=== PATIENT | male | born 1940 | race Caucasian/White ===

== ENCOUNTER 2020-01-10 14:46 | Outpatient (RCR) | payer MEDICARE, BC, SELFPAY ==
--- NOTE | 2020-03-10 09:42 | PCPTNOTE ---
PHYSICAL THERAPY DISCHARGE NOTE: 03/10/20 Attending Provider: Derrell Cheema, DO Patient:Brando Myrick Date of :1940 Patient has not returned for any further treatments since 01/10/2020, therefore he will be discharged at this time. Patient?s initial visit was on 01/10/2020 14:30 and he had a total of 1 visits. The goals have not been reassessed due to patient not returning after one visit. Thank you for referring this patient to [facility]. Please review, sign, date and return this discharge summary HERMAN. I have been updated about the patient's current status and I agree with discharge from the above service at this time. Referring Physician Date
== END 2020-03-14 10:49 | disposition home or self-care (01) ==
LOC: ANHPT 14:46
PROVIDERS: PCP Internal Medicine; Visit Provider Internal Medicine Nephrology
DX: G83.11 Monoplegia of lower limb affecting right dominant side (principal); G83.14 Monoplegia of lower limb affecting left nondominant side
CPT/HCPCS: 97161

== ENCOUNTER 2020-04-18 10:29 | Outpatient (CLI) | payer MEDICARE, BC, SELFPAY ==
[2020-04-18 11:35] LABS: Albumin Level 3.8 g/dL (3.5-5.1); Anion Gap 4 mmol/L (8-16); Blood Urea Nitrogen 17 mg/dL (9-20); Carbon Dioxide 32 mmol/L (22-30); Chloride 102 mmol/L (98-107); Estimated Glomerular Filt Rate 27; Glucose 141 mg/dL (75-110); Phosphorus 3.8 mg/dL (2.5-4.5); Potassium 4.7 mmol/L (3.4-5.0); Sodium 138 mmol/L (137-145)
== END 2020-04-18 10:30 | disposition home or self-care (01) ==
LOC: ANHLAB 10:34
PROVIDERS: PCP Internal Medicine; Visit Provider Internal Medicine Nephrology
DX: E11.311 Type 2 diabetes mellitus with unspecified diabetic retinopathy with macular edema (principal); I12.9 Hypertensive chronic kidney disease with stage 1 through stage 4 chronic kidney disease, or unspecified chronic kidney disease; E11.22 Type 2 diabetes mellitus with diabetic chronic kidney disease; E11.65 Type 2 diabetes mellitus with hyperglycemia; E55.9 Vitamin D deficiency, unspecified; I25.10 Atherosclerotic heart disease of native coronary artery without angina pectoris; E87.5 Hyperkalemia; N18.4 Chronic kidney disease, stage 4 (severe); N39.41 Urge incontinence
CPT/HCPCS: 36415; 80069; 83735

== ENCOUNTER 2020-07-23 12:28 | Outpatient (CLI) | payer MEDICARE, BC, SELFPAY ==
[2020-07-23 12:47] LABS: Basophils Percent Auto 0.2 % (0.2-1.2); Eosinophils Absolute Auto 0.1 K/mm3 (0-0.3); Eosinophils Percent Auto 1.2 % (0-4.4); Hematocrit 39.1 % (42.0-52.0); Hemoglobin 12.9 g/dL (14.0-18.0); Immature Granulocyte Absolute 0.05 K/mm3 (0.00-0.031); Immature Granulocyte Percent A 0.5 % (0-0.5); Lymphocytes Percent Auto 14.7 % (18.3-44.2); Mean Corpuscular Hemoglobin 30.9 pg (26-34); Mean Corpuscular Volume 93.8 fl (80-100); Mean Platelet Volume 11.1 fl (7.4-10.4); Monocytes Absolute Auto 1.3 K/mm3 (0.1-0.6); Monocytes Percent Auto 12.9 % (2.6-8.5); Neutrophils Absolute Auto 7.2 K/mm3 (1.3-6.7); Neutrophils Percent Auto 70.5 % (45.5-73.1); Platelet Count Result 307 k/mm3 (150-375); Red Blood Count 4.17 M/mm3 (4.6-6.20); Red Cell Distribution Width 12.6 % (11.5-14.5); Reticulocyte Hemoglobin Conten 37.5 pg (28.2-35.7); Reticulocyte Percent 1.29 % (0.7-4.3); Reticulocytes Absolute 0.05 B/L (32.2-175.7); White Blood Count 10.2 K/mm3 (4.5-10.0)
[2020-07-23 18:22] LABS: Iron 132 ug/dL (49-181)
[2020-07-23 18:31] LABS: Alanine Aminotransferase 14 U/L (4-50); Albumin Level 4.3 g/dL (3.5-5.1); Alkaline Phosphatase 88 U/L (38-126); Anion Gap 7 mmol/L (8-16); Aspartate Amino Transferase 26 U/L (17-59); Bilirubin,Total 0.7 mg/dL (0.2-1.3); Blood Urea Nitrogen 18 mg/dL (9-20); Calcium 9.6 mg/dL (8.4-10.2); Carbon Dioxide 29 mmol/L (22-30); Chloride 103 mmol/L (98-107); Estimated Glomerular Filt Rate 26; Glucose 153 mg/dL (75-110); Lactate Dehydrogenase 484 U/L (313-618); Potassium 4.7 mmol/L (3.4-5.0); Sodium 139 mmol/L (137-145)
[2020-07-23 18:36] LABS: Percent Iron Saturation 31 % (20-50)
[2020-07-23 19:31] LABS: Folic Acid 9.3 ng/mL (2.76->20)
[2020-07-25 20:05] LABS: Erythropoietin (EPO) 8.1 mIU/mL (2.6-18.5)
== END 2020-07-23 12:29 | disposition home or self-care (01) ==
LOC: ANHLAB 12:30
PROVIDERS: PCP Internal Medicine; Visit Provider Internal Medicine Hematology & Oncology
DX: D64.9 Anemia, unspecified (principal)
CPT/HCPCS: 36415; 80053; 82607; 82668; 82728; 82746; 83540; 83550; 83615; 85025; 85046

== ENCOUNTER 2020-08-02 02:31 | Inpatient (IN) | payer MEDICARE, BC, SELFPAY ==
[2020-08-02] VITALS (14 sets, daily range): BP systolic 136–190; BP diastolic 59–93; PULSE 70–84; RESP 15–24; TEMP 35.7–36.6; O2SAT 97–100; BMI 22.4
--- NOTE | 2020-08-02 | ECHO_ITS ---
Patient Info Name: Brando Myrick Age: 80 years : 1940 Gender: Male Ht: 66 in Wt: 138 lbs BSA: 1.71 m2 HR: 79 bpm Heart Rhythm: Sinus Rhythm Technical Quality: Fair Exam Date: 08/02/2020 2:03 PM Exam Location: [facility] Patient Status: Inpatient Admit Date: 08/02/2020 Staff Ordering Physician: Lakhwinder Plunkett MD Metal Furniture Panel Coverer: Jeny Thomas RDCS Attending Provider: Lakhwinder Plunkett MD Exam Type: CA echo doppler color flow Study Info Complete two-dimensional, color flow and Doppler transthoracic echocardiogram is performed with contrast to opacify the left ventricle and to improve the deliniation of the left ventricle endocardial borders. Contrast/Agitated Saline Contrast/Ag. Saline: Definity Amount: 4.00 ml Summary 1. Left ventricular chamber dimension is normal. 2. Left ventricular systolic function is normal, estimated at 45-50%. 3. There is mild concentric increased left ventricular wall thickness. 4. Definity contrast injected to improve visualization. 5. Septal motion compatible with bundle branch block/IVCD. 6. No significant valvular abnormality. 7. No likely cardioembolic source was identified. Left Ventricle Left ventricular chamber dimension is normal. Left ventricular systolic function is normal, estimated at 45-50%. There is mild concentric increased left ventricular wall thickness. The left ventricular diastolic function is grade I diastolic dysfunction. Definity contrast injected to improve visualization. Septal motion compatible with bundle branch block/IVCD. Right Ventricle Right ventricular chamber dimension is normal. Left Atria Left atrial chamber dimension is normal. Right Atria Right atrial chamber dimension is normal. Aortic Valve The aortic valve is trileaflet. There is mild aortic valve sclerosis. Pulmonic Valve The pulmonic valve is not well visualized. Mitral Valve The mitral valve has normal leaflets. The mitral valve annulus is mildly calcified. Tricuspid Valve The tricuspid valve leaflets are normal. Pericardium/Pleural The pericardium appears normal. Aorta The aortic root size at the sinus of Valsalva is normal. Left Ventricular Outflow Tract Name Value Normal LVOT 2D LVOT Diameter 2.1 cm LVOT Doppler LVOT Peak Velocity 86 cm/s LVOT Peak Gradient 3 mmHg LVOT Mean Gradient 1 mmHg LVOT VTI 15 cm LVOT VTI/AV VTI Ratio 0.9 LVOT Stroke Volume 53 ml LVOT CO 4.0 l/min LVOT CI 2.3 l/min/m2 Pulmonic Valve Name Value Normal PV Doppler PV Peak Velocity 101 cm/s PV Peak Gradient
--- NOTE | ~2020-08-02 | CT_ITS ---
EXAMINATION: CT brain wo con EXAM DATE: 08/02/2020 02:39 INDICATION: Left-sided hemiparesis. Possible stroke. TECHNIQUE: Spiral CT of the head was performed without contrast. Axial, coronal and sagittal images were reviewed. The dose-length product (DLP) for this examination was 605.33 mGy-cm. The exposure w as tailored according to patient size, and iterative reconstruction (ASIR) was used as additional dos e reduction technique. There is no prior study for comparison. FINDINGS: There is no acute intraparenchymal hemorrhage. No evidence of intraparenchymal brain mass lesion. No evidence of acute infarction. Please note that initial head CT has limited sensitivity f or small or acute infarctions. Small old left periventricular infarction. Punctate old left internal capsular lacunar infarction. There is punctate old left cerebellar infarction. There is mild to mode rate periventricular and subcortical hypodensity, nonspecific but probably related to small vessel is chemic disease. There is mild to moderate prominence of the sulci and ventricles related to cerebra l atrophy. There is intracranial carotid arteriosclerosis. There are no extra-axial collections. There is no mass effect or midline shift. The orbits are unremarkable. Soft tissue is unremarkable. The visualized sinuses and mastoid air cells are well aerated. IMPRESSION: 1. No acute intracranial findings. 2. Chronic age related findings. 3. Small old infarctions. Reviewed, dictated and finalized at location A. ER AND CASHIER
--- NOTE | ~2020-08-02 | US_ITS ---
EXAMINATION: US carotid duplex BI EXAM DATE: 08/02/2020 13:01 INDICATION: Stroke. TECHNIQUE: Grayscale, color and pulsed Doppler images of the cervical carotid arteries were obtained . The degree of vessel stenosis is placed in one of the following categories: normal, <50% stenosis, 50-69% stenosis, >=70% stenosis but less than near-occlusion, near-occlusion, or occlusion. Note that percent stenosis relative to normal distal artery lumen diameter is indirectly measured from velocit y measurements as described by Marco Antonio, et al. Radiology 2003; 229:340-346. There is no prior study fo r comparison. FINDINGS: RIGHT SIDE: Right common carotid artery peak systolic velocity (PSV in cm/s): 85 Right bulb/internal carotid artery peak systolic velocity (PSV in cm/s): 78 Right internal carotid artery end diastolic velocity (EDV in cm/s): 15 Right ICA/CCA peak systolic ratio: 0.9 Right external carotid artery peak systolic velocity (PSV in cm/s): 85 Right vertebral artery antegrade flow: yes There is mild carotid bulb plaque. Velocity and Doppler waveforms in the common and internal carotid arteries is normal. LEFT SIDE: Left common carotid artery peak systolic velocity (PSV in cm/s): 67 Left bulb/internal carotid artery peak systolic velocity (PSV in cm/s): 78 Left internal carotid artery end diastolic velocity (EDV in cm/s): 16 Left ICA/CCA peak systolic ratio: 1.5 Left external carotid artery peak systolic velocity (PSV in cm/s): 109 Left vertebral artery antegrade flow: yes There is mild carotid bulb plaque. Velocity and Doppler waveforms in the common and internal carotid arteries is normal. IMPRESSION: 1. Less than 50 percent stenosis in the right internal carotid artery. 2. Less than 50 percent stenosis in the left internal carotid artery. Reviewed, dictated and finalized at location A. BOARD ERECTOR HELPER
--- NOTE | ~2020-08-02 | MR_ITS ---
EXAMINATION: MR brain/brain stem wo con EXAM DATE: 08/02/2020 12:45 INDICATION: Acute ischemic stroke. TECHNIQUE: Magnetic resonance imaging (MRI) of the brain/brain stem obtained without contrast. Sagitt al T1, axial diffusion, gradient echo (T2*), T1, T2, FLAIR sequences obtained. There is no prior st udy for comparison. FINDINGS: There is punctate acute right parietal lobe cortical infarction. Old right periventricular, left internal capsular, left cerebellar infarctions. There is moderate microangiopathy and mild to m oderate cerebral atrophy. No obstructive hydrocephalus, extra-axial collections, acute intracranial h emorrhage or brain mass. Bilateral cataract surgery. IMPRESSION: 1. Punctate acute right parietal lobe infarction. 2. Small old left-sided infarctions. 3. Chronic age related findings. Reviewed, dictated and finalized at location A. LITION SPECIALIST
--- NOTE | ~2020-08-02 | XR_ITS ---
EXAMINATION: XR chest 1V portable EXAM DATE: 08/02/2020 02:58 INDICATION: Stroke. TECHNIQUE: Portable AP frontal chest x-ray was obtained. There is no prior study for comparison. FINDINGS: Prominent basilar reticulation, possible edema or reticulonodular infectious process. The c ardiomediastinal silhouette is prominent but magnified on this AP technique. No confluent consolidati on, pneumothorax or pleural effusion suspected. There are no osseous abnormalities identified. IMPRESSION: Indistinct basilar reticulation without confluent consolidation. Possible mild edema or i nfection. Reviewed, dictated and finalized at location A. CTIONAL SURVEY DRAFTER IMPRESSION: Indistinct basilar reticulation without confluent consolidation. Po ssible mild edema or infection.
--- NOTE | 2020-08-02 02:44 | ECG_ITS ---
Measurements Intervals [place] Rate: 80 P: 44 VA: 186 QRS: 78 QRSD: 120 T: 43 QT: 397 QTc: 461 Interpretive Statements SINUS RHYTHM INTRAVENTRICULAR CONDUCTION DELAY INFERIOR INFARCT, AGE INDETERMINATE BASELINE WANDER- I, III ABNORMAL ECG Electronically Signed On 08-02-2020 6:59:03 DRIVABILITY TECHNICIAN by Efrain Mann D.O.
--- NOTE | 2020-08-02 02:47 | ED.WEAKNESS ---
HPI - Weakness General Chief complaint: Weakness Stated complaint: L sided weakness Time Seen by Provider: 08/02/20 02:34 History of Present Illness HPI Narrative: Patient is an 80-year-old male who presents ER with strokelike symptoms. He has left facial droop as well as left-sided weakness. Patient reports he woke up from sleep and noticed his left side was numb and felt off. He walked into the bathroom when he fell onto his left side striking the sink. Did not lose consciousness. woke up and called EMS after he yelled for her. Patient reports previous history of TIA and he supposed to be on some sort of blood thinning medication that he does not know the name of but has not been taking it. Last known normal was at 10:30 PM. Related Data Allergies Allergy/AdvReac Type Severity Reaction Status Date / Time MEPERIDINE HCL Allergy Mild HALLUCINATI Uncoded 04/15/10 14:20 ONS Review of Systems Review of Systems: All systems reviewed & are unremarkable except as noted in HPI and below Constitutional: Constitutional: Denies chills and Denies fever(s) Cardiovascular: Cardiovascular: Denies chest pain and Denies rapid heart rate Respiratory: Respiratory: Denies cough and Denies dyspnea Gastrointestinal: Gastrointestinal: Denies abdominal pain, Denies nausea and Denies vomiting Neurologic: Denies headache(s), Reports focal weakness and Reports numbness PMFSH Past Medical History Medical History (Updated 08/02/20 @ 04:33 by Sloan Trejo MD) Chronic kidney disease Diabetes Glaucoma Hyperlipidemia Myocardial infarction TIA (transient ischemic attack) Surgical History Surgical History (Updated 08/02/20 @ 02:55 by Sloan Trejo MD) History of colonoscopy History of percutaneous coronary intervention S/P lens implant Exam Narrative: Exam Narrative: GENERAL: Well-appearing, well-nourished, and in no acute distress. HEAD: Normocephalic, atraumatic. EYES: PERRLA and EOMI. ENT: Mucous membranes moist. CHEST: Clear to auscultation. No respiratory distress. HEART: Regular rate and rhythm. Normal peripheral pulses. ABDOMEN: Soft, nontender, nondistended. EXTREMITIES: Normal range of motion. No edema. SKIN: Warm, dry, abrasions left forearm. NEURO: See NIH stroke scale. Stroke scale of 7. Main deficits are left facial droop, left arm and left leg drift, and inability to perform finger-nose testing in the left upper extremity. Mild slurred speech. Decreased pin prick LUE. Alert and oriented x3. Course Reevaluation(s) Reevaluation #1: Discussed with Dr. Ernst with [facility] stroke team. Does not recommend TPA as patient is now outside the treatment window. Feels patient can stay at this hospital. Date: 08/02/20 Time: 03:05 Reevaluation #2: Discussed results and treatment plan with patient's and son. will come back to see patient. Date: 08/02/20 Time: 03:30 Reevaluation #3: Patient is now able to move his arms without issue and has feeling back. Still has minor left-sided facial droop. Accepted to hospitalist service. Date: 08/02/20 Time: 04:32 Vital Signs Vital signs: Vital Signs Temperature 97.8 F 08/02/20 02:30 Pulse Rate 84 08/02/20 02:30 Respiratory Rate 24 H 08/02/20 02:30 Blood Pressure 190/77 H 08/02/20 02:30 Pulse Oximetry 97 08/02/20 02:30 Temperature 97.8 F 08/02/20 02:30 Pulse Rate 78 08/02/20 04:13 Respiratory Rate 16 08/02/20 04:13 Blood Pressure 172/89 H 08/02/20 04:13 Pulse Oximetry 100 08/02/20 04:13 MDM - Weakness Lab Data Result diagrams: 08/02/20 02:50 08/02/20 02:50 Labs: Lab Results 08/02/20 08/02/20 08/02/20 Range/Units 02:50 02:50 02:50 WBC 9.3 (4.5-10.0) K/mm3 RBC 3.96 L (4.6-6.20) M/mm3 Hgb 12.4 L (14.0-18.0) g/dL Hct 37.1 L (42.0-52.0) % MCV 93.7 (80-100) fl MCH 31.3 (26-34) pg MCHC 33.4 (32-36) g/dl RDW 12.3 (11.5-14.5) % Plt Count 300
[2020-08-02 03:02] LABS: Basophils Percent Auto 0.3 % (0.2-1.2); Eosinophils Absolute Auto 0.1 K/mm3 (0-0.3); Eosinophils Percent Auto 1.5 % (0-4.4); Hematocrit 37.1 % (42.0-52.0); Hemoglobin 12.4 g/dL (14.0-18.0); Immature Granulocyte Absolute 0.06 K/mm3 (0.00-0.031); Immature Granulocyte Percent A 0.6 % (0-0.5); Lymphocytes Absolute Auto 1.92 K/mm3 (0.9-3.2); Lymphocytes Percent Auto 20.7 % (18.3-44.2); Mean Corpuscular HGB Conc 33.4 g/dl (32-36); Mean Corpuscular Hemoglobin 31.3 pg (26-34); Mean Corpuscular Volume 93.7 fl (80-100); Monocytes Absolute Auto 1.5 K/mm3 (0.1-0.6); Monocytes Percent Auto 16.1 % (2.6-8.5); Neutrophils Absolute Auto 5.6 K/mm3 (1.3-6.7); Neutrophils Percent Auto 60.8 % (45.5-73.1); Platelet Count Result 300 k/mm3 (150-375); Red Blood Count 3.96 M/mm3 (4.6-6.20); Red Cell Distribution Width 12.3 % (11.5-14.5); White Blood Count 9.3 K/mm3 (4.5-10.0)
[2020-08-02 03:05] LABS: Prothrombin Time 13.3 Seconds (11.1-14.7)
[2020-08-02 03:06] LABS: Partial Thromboplastin Time 28.3 SECONDS (22.3-36.8)
[2020-08-02 03:07] LABS: Anion Gap 6 mmol/L (8-16); Blood Urea Nitrogen 20 mg/dL (9-20); Calcium 8.8 mg/dL (8.4-10.2); Carbon Dioxide 30 mmol/L (22-30); Chloride 100 mmol/L (98-107); Estimated CRCL calculation 20 ml/min; Estimated Glomerular Filt Rate 26; Glucose 122 mg/dL (75-110); Sodium 136 mmol/L (137-145)
[2020-08-02 03:20] LABS: Troponin I 0.035 ng/mL (0.000-0.034)
--- NOTE | 2020-08-02 07:14 | PC.NURSE ---
Spouse contacted for home med list. Spouse did not answer, was not able to leave message.
--- NOTE | 2020-08-02 07:42 | PC.NURSE ---
This patient, Brando Myrick, was admitted to IMU Room 207-01. Patient/family oriented to hospital policies and general routines including ID bracelet, bed and alarms, visiting hours, pain management, procedures, bathroom and other care routines, personal items, smoking policy, room service/diet, and visiting hours. Information on how to activate the Rapid Response Team has been discussed. Patient/Family are encouraged to report perceived risks to care and to ask questions if they do not understand what they are told or what they should do.
--- NOTE | 2020-08-02 08:46 | PM.IMHP ---
H&P: HPI History of Present Illness Date/Time: 08/02/20 08:46 Chief Complaint: weaknesss Narrative: Brando Myrick is a 80 year old male who presents ER with strokelike symptoms. He reports he went to bed at 1030 last night, woke up to go to the bathroom at midnight and felt his left side is weak along with facial droop. he also reports he was feeling tingly and numb on his left side. He walked to the bathroom and he fell on his left side having some skin laceration on his left side. He denies any loss of consciousness. he denies any palpitations, no chest pain or sob. he then called his and EMS was called. EMS brought him to the hospital for further evluaation. His neurological deficits improved in few hours with no weakness on left side but still has some left sided facial droop. he was consulted with [facility] stroke team and deemed not a canddiate for tpa. He was then admitted to the hospital for further evlauation and management. He takes aspirin 81 mg two a day. he is supposed to be on some other sore of blood thinner which he has not been takig since a year now, for planned tooth work. he has not done his tooth work either. He states he did not have the guts to do it. No other complaints. Spoke with to find out about the blood thinner medicaiton and she does not recall it either. Review of Systems Constitutional: Constitutional: Denies chills, Denies fatigue, Denies night sweats and Denies weakness Eyes: Eyes: Denies blurry vision and Denies photophobia ENT: Denies epistaxis and Denies nasal discharge Cardiovascular: Cardiovascular: Denies chest pain, Denies diaphoresis, Denies pedal edema, Denies leg edema, Denies lightheadedness and Denies palpitations Respiratory: Respiratory: Denies dyspnea and Denies wheezing Gastrointestinal: Gastrointestinal: Denies abdominal pain, Denies melena, Denies constipation and Denies hematemesis Genitourinary: Genitourinary: Denies dysuria and Denies urinary urgency Musculoskeletal: Musculoskeletal: Denies back pain and Denies neck pain Integumentary/Breasts: Skin/Breast: Denies dry skin and Denies unusual bruising Neurologic: Denies headache(s) and Denies numbness Psychiatric: Psychiatric: Denies anxiety and Denies confusion Endocrine: Endocrine: Denies change in body appearance, Denies cold intolerance and Denies heat intolerance Hematologic/Lymphatic: Hematologic/Lymphatic: Denies easy bleeding and Denies easy bruising Allergic/Immunologic: Allergic/Immunologic: Denies urticaria and Denies tongue swelling PMF Past Medical History Medical History (Updated 08/02/20 @ 09:35 by Lakhwinder Plunkett MD) Chronic kidney disease Diabetes Glaucoma Hyperlipidemia Myocardial infarction TIA (transient ischemic attack) Surgical History Surgical History (Updated 08/02/20 @ 02:55 by Sloan Trejo MD) History of colonoscopy History of percutaneous coronary intervention S/P lens implant Family History Family History (Updated 08/02/20 @ 06:28 by Gudelia Hinkle RN) Sibling Kidney disease Sibling Cancer unknown type Sibling Accident mva, Sibling Accident helicopter accident, Father Black lung disease Mother Pulmonary embolism Social History Social History Smoking packs per day: 2 Smoking cigarettes per day: 40.0 Years smoked: 5 Smoking pack-years: 10.00 Smoking status: Former smoker Tobacco type: cigarettes Alcohol intake: current Drinks per week: 0 Substance use: never Spiritual care concerns: No Meds Home Medications and Allergies Allergies Allergy/AdvReac Type Severity Reaction Status Date / Time MEPERIDINE HCL Allergy Mild HALLUCINATI Uncoded 08/02/20 05:41 ONS Vital Signs Vital Signs - 24 hr 08/02/20 02:30 08/02/20 02:58 08/02/20 03:19 Temperature 97.8 F Pulse Rate 84 74 73 Respiratory Rate 24 H 18 21 H Blood Pressure 190/77 H 183/93 H 185/73 H P
[2020-08-02 10:28] LABS: Basophils Percent Auto 0.2 % (0.2-1.2); Eosinophils Absolute Auto 0.1 K/mm3 (0-0.3); Eosinophils Percent Auto 0.6 % (0-4.4); Hematocrit 38.9 % (42.0-52.0); Hemoglobin 12.9 g/dL (14.0-18.0); Immature Granulocyte Absolute 0.05 K/mm3 (0.00-0.031); Immature Granulocyte Percent A 0.5 % (0-0.5); Lymphocytes Absolute Auto 1.29 K/mm3 (0.9-3.2); Lymphocytes Percent Auto 12.7 % (18.3-44.2); Mean Corpuscular HGB Conc 33.2 g/dl (32-36); Mean Corpuscular Hemoglobin 31.2 pg (26-34); Mean Platelet Volume 11.2 fl (7.4-10.4); Monocytes Absolute Auto 1.1 K/mm3 (0.1-0.6); Monocytes Percent Auto 11.2 % (2.6-8.5); Neutrophils Absolute Auto 7.6 K/mm3 (1.3-6.7); Neutrophils Percent Auto 74.8 % (45.5-73.1); Platelet Count Result 285 k/mm3 (150-375); Red Blood Count 4.14 M/mm3 (4.6-6.20); Red Cell Distribution Width 12.4 % (11.5-14.5); White Blood Count 10.2 K/mm3 (4.5-10.0)
[2020-08-02 10:40] LABS: Anion Gap 6 mmol/L (8-16); Blood Urea Nitrogen 19 mg/dL (9-20); Carbon Dioxide 29 mmol/L (22-30); Chloride 102 mmol/L (98-107); Estimated CRCL calculation 21 ml/min; Estimated Glomerular Filt Rate 29; Glucose 140 mg/dL (75-110); Potassium 4.1 mmol/L (3.4-5.0); Sodium 137 mmol/L (137-145)
[2020-08-02 10:45] LABS: Hemoglobin A1C 7.1 % (<5.7)
[2020-08-02 12:34] LABS: Glucose Point of Care 149 (65-105)
--- NOTE | 2020-08-02 12:41 | WPDNEURCNPN ---
Assessment and Plan Assessment and plan (1) Presence of stent in coronary artery in patient with coronary artery disease: Code(s): I25.10 - Atherosclerotic heart disease of elem coronary artery without angina pectoris; Z95.5 - Presence of coronary angioplasty implant and graft Status: Acute (2) Acute ischemic stroke: Code(s): I63.9 - Cerebral infarction, unspecified Status: Acute Additional Plan subcortical strokes MRI pending Consult date: 08/02/20 Time Seen: 13:00 HPI: Brando Myrick is a 80 year old male 80 years old admitted to the hospital through the emergency room with the complaints of weakness on the left side at midnight when he woke up to go to the bathroom along with the tingling and numbness on the left side resulting in the fall on the left side again with some skin laceration though he did not become unconscious. called his , brought to the ER by the EMS where he was noted to have improvement in the neurological deficit but still residual facial asymmetric, slew was contacted for the stroke team deemed not a candidate for tPA. And admitted to [facility]. Been taking aspirin 81 mg daily, additionally has ongoing history of chronic kidney disease with diabetes mellitus, hyperlipidemia, and myocardial infarction in the past, does have a history of smoking with smoking pack years of 10 but being former smoker , initial CT of the head negative for the bleed is small old left periventricular infarction noted in addition to punctate old left internal capsule lacunar infarct and punctate left cerebellar infarct as well, brain MRI at this stage pain and patient already on aspirin 325 mg daily along with rosuvastatin 20 mg daily and insulin subcu 3 times a day with meals Review of Systems Review of Systems: All systems reviewed & are unremarkable except as noted in HPI and below PMFSH Past Medical History Medical History Chronic kidney disease Diabetes Glaucoma Hyperlipidemia Myocardial infarction TIA (transient ischemic attack) Surgical History Surgical History History of colonoscopy History of percutaneous coronary intervention S/P lens implant Family History Family History Sibling Kidney disease Sibling Cancer unknown type Sibling Accident mva, Sibling Accident helicopter accident, Father Black lung disease Mother Pulmonary embolism Social History Social History Smoking packs per day: 2 Smoking cigarettes per day: 40.0 Years smoked: 5 Smoking pack-years: 10.00 Smoking status: Former smoker Tobacco type: cigarettes Alcohol intake: current Drinks per week: 0 Substance use: never Spiritual care concerns: No Meds Home Medications and Allergies Allergies Allergy/AdvReac Type Severity Reaction Status Date / Time MEPERIDINE HCL Allergy Mild HALLUCINATI Uncoded 08/02/20 05:41 ONS Vital Signs Vital Signs - 24 hr 08/02/20 02:30 08/02/20 02:58 08/02/20 03:19 Temperature 36.6 C Pulse Rate 84 74 73 Respiratory Rate 24 H 18 21 H Blood Pressure 190/77 H 183/93 H 185/73 H Pulse Oximetry 97 97 100 08/02/20 04:13 08/02/20 05:40 08/02/20 05:41 Temperature 36.1 C L Pulse Rate 78 71 71 Respiratory Rate 16 15 Blood Pressure 172/89 H 170/66 H Pulse Oximetry 100 100 08/02/20 06:00 08/02/20 08:00 08/02/20 08:57 Temperature 35.7 C L Pulse Rate 70 77 Respiratory Rate 16 Blood Pressure 146/62 H Pulse Oximetry 100 99 Exam Const: General: cooperative, comfortable, no acute distress, alert and awake Nutritional Appearance: average body habitus and thin Orientation/consciousness: oriented to person, oriented to place and oriented to time Limitations: no limitations H
--- NOTE | 2020-08-02 13:37 | PCSTNOTE ---
Bedside swallow evaluation completed. Please see ST evaluation for details and recommendations.
--- NOTE | 2020-08-02 15:53 | PC.NURSE ---
This patient, Brando Myrick, was transferred to [[id number]] on 08/02/20 at 1554. Personal belongings sent with patient. Report given to [JOSELIN LOZOYA]. Appropriate documentation sent with patient.
[2020-08-02] MEDS: RIVAROXABAN 2.5 MG TABLET PO (16:31)
[2020-08-02] MEDS: TIMOLOL MALEATE 0.5% OP SOLN 5 ML BOTTLE 1 DROP LEFT EYE (16:31)
[2020-08-02] MEDS: RANOLAZINE 500 MG TAB.ER.12H PO (16:31)
[2020-08-02 16:40] LABS: Glucose Point of Care 155 (65-105)
--- NOTE | 2020-08-02 16:46 | PC.NURSE ---
This patient, Brando Myrick, was received from IMU on 08/02/20 at 1620. Patient/family oriented to unit policies and routines
[2020-08-02] MEDS: INSULIN GLARGINE (*BKC) 100 UNITS/ML SUB-Q (22:08)
[2020-08-02] MEDS: ASPIRIN 81 MG CHEWABLE TABLET PO (22:12)
[2020-08-02] MEDS: carvediloL 12.5 MG TABLET PO (22:12)
[2020-08-02] MEDS: LATANOPROST 0.005% OP SOLN 2.5 ML BTL 1 DROP EACH EYE (22:13)
[2020-08-02] MEDS: ROSUVASTATIN 10 MG TABLET 20 MG PO (22:14)
[2020-08-02 22:18] LABS: Glucose Point of Care 144 (65-105)
[2020-08-03] VITALS (10 sets, daily range): BP systolic 112–154; BP diastolic 50–74; PULSE 63–76; RESP 14–18; TEMP 36.1–36.8; O2SAT 97–100
[2020-08-03] MEDS: RIVAROXABAN 2.5 MG TABLET PO ×2 (08:07→17:04)
[2020-08-03] MEDS: RANOLAZINE 500 MG TAB.ER.12H PO ×2 (08:08→17:04)
[2020-08-03] MEDS: VITAMIN B COMPLEX CAPSULE 1 CAP PO (08:08)
[2020-08-03] MEDS: TIMOLOL MALEATE 0.5% OP SOLN 5 ML BOTTLE 1 DROP LEFT EYE ×2 (08:08→17:05)
[2020-08-03] MEDS: ERGOCALCIFEROL 50,000 UNIT CAPSULE 50000 UNITS PO (08:10)
[2020-08-03 08:26] LABS: Glucose Point of Care 85 (65-105)
--- NOTE | 2020-08-03 09:06 | PM.IMPN ---
Progress Note: A&P Assessment and Plan (1) Acute ischemic stroke: Code(s): I63.9 - Cerebral infarction, unspecified Status: Acute (2) Presence of stent in coronary artery in patient with coronary artery disease: Code(s): I25.10 - Atherosclerotic heart disease of [place] coronary artery without angina pectoris; Z95.5 - Presence of coronary angioplasty implant and graft Status: Acute (3) Hyperlipidemia: Code(s): E78.5 - Hyperlipidemia, unspecified Status: Acute (4) Diabetes: Code(s): E11.9 - Type 2 diabetes mellitus without complications Status: Acute (5) Chronic kidney disease: Code(s): N18.9 - Chronic kidney disease, unspecified Status: Acute Additional Plan # Acute right small parietal ischemic stroke: CT head negative. Brain MRI noted. ECHO pendig. contiue tele monitorig. on aspirin 81 mg po daily with xarelto 2.5 mg po bid. neurology consultation. carotid doppler negative bilaterally. continue crestor 20 mg bedtime. # CKD stage III-IV: piedad Cr 2.6. currently at baseline. continue to monitor. # DM type 2: on insulin and semaglutide at home. SSI. a1c 7.1. on alogliptin, semaglutide, lantus # Glaucoma: home meds # hyperlipidemia: crestor. check lipid profile in am. # Hypetension: allow permissive hypertension. # hx of TIA # CAD s/ps tents in the past: on asprin, statin. # hx of anemia while on aspirin and plavix, since then plavix has been off. was plaed on xarelto which he never took sice then. # DVT proph:xarelto 2.5 mg po bid. # Diet: cosnsitent carb/cardiac. # dysphagia: On nectar thick liquids. ST following. # full code. # Disposition: likely needs rehab. CM following. Subjective Date/time seen: 08/03/20 09:06 Interval history: no overnight events. he feels better. no ausea, vomitin. his left weakness is improivng. no fever, chills, sob, chest pain. Review of Systems Constitutional: Constitutional: Denies fatigue and Denies weakness Eyes: Eyes: Denies blurry vision and Denies photophobia ENT: Denies nasal congestion and Denies nasal discharge Cardiovascular: Cardiovascular: Denies diaphoresis and Denies lightheadedness Respiratory: Respiratory: Denies cough and Denies dyspnea Gastrointestinal: Gastrointestinal: Denies abdominal pain and Denies constipation Genitourinary: Genitourinary: Denies dysuria and Denies urinary frequency Musculoskeletal: Musculoskeletal: Denies back pain and Denies neck pain Integumentary/Breasts: Skin/Breast: Denies erythema and Denies rash Neurologic: Denies Abnormal speech present and Denies confusion Psychiatric: Psychiatric: Denies anxiety and Denies confusion Exam Narrative: Exam Narrative: Const: General: comfortable and no acute distress HENMT: General nose exam: no epistaxis Eyes: Pupils: Equal, round and reactive pupils present EOM: EOMs intact bilaterally Other: left eye does not close well Resp: Effort & Inspection: normal respiratory effort Auscultation: clear to auscultation bilaterally, no crackles, no rales, no rhonchi and no wheezes Cardio: Rate: regular rate Rhythm: regular rhythm Heart sounds: no gallops, no murmurs and no rubs GI: Inspection: non-distended GI Palp: Yes Soft to palpation Auscultation: normal bowel sounds Skin: General skin exam: normal color and no rashes or lesions noted Neuro: General: deep tendon reflexes 2+ bilaterally Cognition (Neuro): normal cognition Speech: normal speech Motor exam (neuro): 5/5 motor strength present throughout and Normal motor muscle tone present throughout Other: left facilal droop noted, left upper eyelid weakness noted Extrem: General: normal to inspection, no edema and no pedal edema Psych: Mental Status: mental status grossly normal Affect: normal affect Objective Data Vital Signs Vital Signs: Vital Signs - 24 hr 08/02/20 12:00 08/02/20 16:00 08/02/20 19:51 Temperature 97.3 F L 97.0 F L 97 F L Pulse Rate 80 72 80
[2020-08-03] MEDS: carvediloL 12.5 MG TABLET PO ×2 (09:07→20:04)
[2020-08-03 15:06] LABS: Glucose Point of Care 120 (65-105)
--- NOTE | 2020-08-03 15:43 | PC.NURSE ---
Patient s brought in home medication alogliptin. Sent medication in bottle to pharmacy for verification.
--- NOTE | 2020-08-03 15:48 | PHAR ---
The patient's home med of Alogliptin 6.25 mg tablet has been verified.
[2020-08-03 18:58] LABS: Glucose Point of Care 151 (65-105)
[2020-08-03] MEDS: ASPIRIN 81 MG CHEWABLE TABLET PO (20:04)
[2020-08-03] MEDS: ROSUVASTATIN 10 MG TABLET 20 MG PO (20:04)
[2020-08-03] MEDS: LATANOPROST 0.005% OP SOLN 2.5 ML BTL 1 DROP EACH EYE (20:05)
[2020-08-03] MEDS: INSULIN GLARGINE (*BKC) 100 UNITS/ML SUB-Q (20:56)
[2020-08-03 21:06] LABS: Glucose Point of Care 118 (65-105)
[2020-08-04] VITALS (7 sets, daily range): BP systolic 113–153; BP diastolic 52–63; PULSE 60–77; RESP 14–16; TEMP 36–36.2; O2SAT 96–100
[2020-08-04 07:15] LABS: Cholesterol 112 mg/dL (0-200); HDL Direct 46 mg/dL; Triglycerides 104 mg/dL (<150)
[2020-08-04 07:26] LABS: LDL Cholesterol Direct 50 mg/dL
[2020-08-04 07:43] LABS: Glucose Point of Care 78 (65-105)
[2020-08-04] MEDS: RIVAROXABAN 2.5 MG TABLET PO (08:37)
[2020-08-04] MEDS: RANOLAZINE 500 MG TAB.ER.12H PO (08:37)
[2020-08-04] MEDS: VITAMIN B COMPLEX CAPSULE 1 CAP PO (08:37)
[2020-08-04] MEDS: carvediloL 12.5 MG TABLET PO (08:37)
[2020-08-04] MEDS: TIMOLOL MALEATE 0.5% OP SOLN 5 ML BOTTLE 1 DROP LEFT EYE (08:38)
--- NOTE | 2020-08-04 10:31 | WPDNEUROPN ---
Progress Note: A&P Assessment and Plan (1) Hyperlipidemia: Code(s): E78.5 - Hyperlipidemia, unspecified Status: Acute (2) Diabetes: Code(s): E11.9 - Type 2 diabetes mellitus without complications Status: Acute (3) Chronic kidney disease: Code(s): N18.9 - Chronic kidney disease, unspecified Status: Acute (4) Presence of stent in coronary artery in patient with coronary artery disease: Code(s): I25.10 - Atherosclerotic heart disease of [place] coronary artery without angina pectoris; Z95.5 - Presence of coronary angioplasty implant and graft Status: Acute (5) Acute ischemic stroke: Code(s): I63.9 - Cerebral infarction, unspecified Status: Acute Additional Plan seun Review of Systems Review of Systems: All systems reviewed & are unremarkable except as noted in HPI and below Exam Const: General: cooperative and no acute distress Nutritional Appearance: average body habitus Eyes: General: appearance normal, both eyes and all related structures Neck: Neck: full ROM and no lymphadenopathy Resp: Effort & Inspection: normal respiratory effort Auscultation: clear to auscultation bilaterally Cardio: Rate: regular rate Neuro: General: patient oriented x3 Objective Data Vital Signs Vital Signs: Vital Signs - 24 hr 08/03/20 12:00 08/03/20 16:00 08/03/20 19:29 Temperature 36.1 C L 36.1 C L 36.6 C Pulse Rate 65 64 69 Respiratory Rate 16 18 14 Blood Pressure 120/54 L 126/58 L 154/74 H Pulse Oximetry 99 100 99 08/03/20 20:00 08/03/20 20:04 08/04/20 00:00 Temperature Pulse Rate 71 69 74 Respiratory Rate Blood Pressure Pulse Oximetry 08/04/20 04:00 08/04/20 08:00 08/04/20 08:37 Temperature 36.0 C L Pulse Rate 64 77 77 Respiratory Rate 14 Blood Pressure 151/57 H Pulse Oximetry 100 08/04/20 09:03 Temperature 36.2 C L Pulse Rate 66 Respiratory Rate 16 Blood Pressure 153/63 H Pulse Oximetry 100 Intake/Output Intake/Output: Intake & Output 08/01/20 08/02/20 08/03/20 08/04/20 23:59 23:59 23:59 23:59 Intake Total 640 1320 240 Output Total 0 1000 300 Balance 640 320 -60 Meds/Results Medications: Active Medications Generic Name Dose Route Start Last Admin Trade Name Freq PRN Reason Stop Dose Admin Acetaminophen 650 mg 08/02/20 04:28 Acetaminophen 325 Mg Tablet PO Q4H PRN Mild Pain (1-3) or Fever Hydrocodone Bitart/Acetaminophen 1 tab 08/02/20 04:28 Hydrocodone/Acetaminophen (*Crx) 5-325 Mg Tablet PO Q4H PRN Pain Rated 4-6 Aspirin 81 mg 08/02/20 21:00 08/03/20 20:04 Aspirin 81 Mg Chewable Tablet PO 09/01/20 21:01 81 mg HS JAJA Administration Carvedilol 12.5 mg 08/02/20 21:00 08/04/20 08:37 Carvedilol 12.5 Mg Tablet PO 12.5 mg Q12HR JAJA Administration Dextrose 12.5 gm 08/02/20 09:36 Dextrose 50% 25 Gm/50 Ml Syringe IV PUSH PRN PRN Hypoglycemia Protocol Ergocalciferol 50,000 unit 08/03/20 09:00 08/03/20 08:10 Ergocalciferol 50,000 Unit Capsule PO 50,000 unit Jaimes@0900 JAJA Administration Glucagon 1 mg 08/02/20 09:36 Glucagon For Inj 1 Mg Vial IM PRN PRN Hypoglycemia Protocol Glucose 15 gm 08/02/20 09:36 Glucose Oral Gel 15 Gm Of Glucse In 37.5 Gm Tube PO PRN PRN Hypoglycemia Protocol Dextrose 1,000 mls @ 100 mls/hr 08/02/20 09:36 Dextrose 5% 1,000 Ml IVPB PRN PRN Hypoglycemia Protocol Insulin Aspart 2 - 5 units 08/02/20 12:00 08/04/20 07:28 Insulin Aspart (*Bkc) 100 Units/Ml SUB-Q Not Given TIDWM [facility] Protocol Insulin Glargine 15 - 20 units 08/02/20 21:00 08/03/20 20:56 Insulin Glargine (*Bkc) 100 Units/Ml SUB-Q 15 units HS JAJA Administration Latanoprost 1 drop 08/04/20 21:00 Latanoprost 0.005% Op Soln 2.5 Ml Btl LEFT EYE HS JAJA Morphine Sulfate 4 mg 08/02/20 04:28 Morphine Sulfate (*Crx) 4 Mg/Ml Inj IV
[2020-08-04 11:53] LABS: Glucose Point of Care 142 (65-105)
--- NOTE | 2020-08-04 11:54 | PCNFU ---
Nutrition Follow-Up Complete: Goal: Pt current nutrition is . Nutrition recommendation: Last recorded weight is 62 kg. Bowel Motility: Labs Reviewed: Meds Noted: Additional Notes:
--- NOTE | 2020-08-04 11:55 | PCNSR ---
On 08/04/20, the student, Chantelle Mo, provided care and completed [facility] documentation on this patient. I have reviewed the student's documentation and agree with the findings.
--- NOTE | 2020-08-04 16:02 | PM.DS ---
DS: Admitting Diagnosis Admitting Diagnosis Admitting Diagnosis: acute cva DS: Discharge Diagnosis Discharge Diagnosis (1) Acute ischemic stroke: Code(s): I63.9 - Cerebral infarction, unspecified Status: Acute (2) Presence of stent in coronary artery in patient with coronary artery disease: Code(s): I25.10 - Atherosclerotic heart disease of [place] coronary artery without angina pectoris; Z95.5 - Presence of coronary angioplasty implant and graft Status: Acute (3) Hyperlipidemia: Code(s): E78.5 - Hyperlipidemia, unspecified Status: Acute (4) Diabetes: Code(s): E11.9 - Type 2 diabetes mellitus without complications Status: Acute (5) Chronic kidney disease: Code(s): N18.9 - Chronic kidney disease, unspecified Status: Acute DS: Summary Hospital Course Hospital Course: Patient is an 80-year-old male who presented emergency room on August 02, 2020 for left-sided facial droop and left-sided weakness that started sometime in the night as he woke up with these symptoms. Vitals in the ER were temperature 97.8?, pulse 84, respiratory rate 24, blood pressure 190/77, pulse ox 97 on room air. Initial CBC revealed white blood cell count 9.3, hemoglobin 12.3, hematocrit 37.1, platelets 300. BMP showed creatinine 2.4. Initial head CT showed no acute findings with small old infarctions. Chest x-ray revealed indistinct basilar reticulation without confluent consolidation possible mild edema or infection. No infection was suspected as the patient had no cough and remained afebrile. Patient was admitted to the hospitalist service and underwent further evaluation and treatment. He underwent a brain MRI which showed punctate acute right parietal lobe infarction. Carotid Doppler showed Less than 50% stenosis bilaterally. Systolic function near normal 45-50% with no likely cardioembolic source identified. The patient's deficits improved throughout his stay with therapy. The day of discharge speech therapy recommended upgrade to thin liquids and educated him on aspiration precautions and recommended outpatient speech therapy. As for the etiology of his stroke, it is thought to be due to him not taking his Xarelto. The patient states he can afford this medication he just simply stop taking it. He denies a history of atrial fibrillation and apparently takes this for coronary disease according to his rotary cutter. I spoke with his rotary cutter directly who recommended continuing the Xarelto to prevent future strokes. I recommended possibly doing a outpatient heart monitor. His rotary cutter wanted to see him back in the office within a month. The day of discharge the patient was feeling better and was able to discharge home. He was educated about the worrisome signs and symptoms to come back to emergency room for and was discharged in stable condition. Patient was discharged 08/04/20 Status at Discharge Overall status at discharge: patient is progressing back to baseline Time Spent with Patient Time attestation: Total time spent providing and/or coordinating discharge services:40 min Time spent: Greater than 30 minutes Exam Narrative: Exam Narrative: General: Well developed well nourished patient in NAD HEENT: normocephalic Neck: supple Neuro: Alert and oriented x4. Slight slurring of his speech and slight left-sided weakness CV:RRR Resp:CTA Abd: Soft, non distended. No pain to palpation. Positive bowel sounds Extremities: Very minimal lower extremity swelling. No erythema or warmth. Discharge Plan Discharge Attending physician on discharge: Ravinder Fitzgerald Consulting providers: Harman Pappas ; Tre Paez ; Efrain Mann Discharging Clinician: Hien Marin Patient Disposition: Home, Self-Care Activity: as tolerated Diet: heart healthy and diabetic Discharge Instructions: As discussed, take your Xarelto as prescribed. I spoke with your rotary cutter and is ve
== END 2020-08-04 17:25 | disposition home or self-care (01) | DRG 65 ==
LOC: ANHED 04:33 → ANHIMU 07:06 → ANH3MED 08-04 06:34 → ANHIMU 08-07 13:08
PROVIDERS: Internal Medicine; Physician Assistant; Admitting Provider Internal Medicine; Emergency Provider Emergency Medicine; PCP Internal Medicine; Visit Provider Specialist
DX: I63.9 Cerebral infarction, unspecified (principal); G81.94 Hemiplegia, unspecified affecting left nondominant side; N18.4 Chronic kidney disease, stage 4 (severe); E11.22 Type 2 diabetes mellitus with diabetic chronic kidney disease; R29.810 Facial weakness; R47.81 Slurred speech; R20.2 Paresthesia of skin; R20.0 Anesthesia of skin; R29.707 NIHSS score 7; I25.10 Atherosclerotic heart disease of native coronary artery without angina pectoris; E78.5 Hyperlipidemia, unspecified; H40.9 Unspecified glaucoma; Z95.5 Presence of coronary angioplasty implant and graft; I25.2 Old myocardial infarction; Z86.73 Personal history of transient ischemic attack (TIA), and cerebral infarction without residual deficits; Z87.891 Personal history of nicotine dependence
CPT/HCPCS: 36415; 70450; 70551; 71045; 80048; 80061; 82948; 83036; 84484; 85025; 85610; 85730; 92522; 92526; 92610; 93005; 93880; 97161; 97166; 97535; 99285; A9270; C8929; J1815; Q9957

== ENCOUNTER 2020-09-10 14:00 | Outpatient (RCR) | payer MEDICARE, BC, SELFPAY ==
--- NOTE | 2020-08-14 09:26 | OTOPEVAL ---
OCCUPATIONAL THERAPY EVALUATION AND DISCHARGE SUMMARY 08/14/20 Brando presents for outpatient OT evaluation after experiencing a CVA on 08/02/20. Patient has intact and symmetrical UE strength and slightly decreased functional coordination on the left hand. He has been instructed in a home exercise program for hand strength and coordination. He understands all exercises well and has no questions. No further skilled OT indicated at this time. Thank you for referring Brando Myrick to [facility].? Please review, sign, date and return this D/C Note HERMAN. I agree with and certify that the following plan of care is medically necessary. Referring Physician Date Referring Provider: Hien Marin PA-C *OT Outpatient Evaluation Start: 08/14/20 08:32 Freq: Status: Active Protocol: Document 08/14/20 08:32 AMAYA (Rec: 08/14/20 09:26 [email or web address]) Therapy Assessment Status Assessment Status Assessment Status Evaluation Outpatient Past Medical History Past Medical History Source of Past Medical History Patient,Recalled from Previous Visit, Confirmed with Patient /Family Neurological History Hx Cerebrovascular Accident (CVA) Yes: 08/02/20 Hx Transient Ischemic Attacks (TIA) Yes Cardiovascular History Hx Cardiac Catheterization Yes Hx Coronary Artery Disease Yes Hx Coronary Stent Yes Hx Hypercholesterolemia Yes Hx Myocardial Infarction Yes Genitourinary History Hx Renal Disease Yes Musculoskeletal History Hx Back Pain Yes Hematological History Hx Anemia Yes Hx Blood Transfusions Yes Endocrine History Hx Diabetes Yes HEENT History Hx Glaucoma Yes Hx Tonsillectomy Yes Evaluation Information Problem Diagnosis CVA, right parietal lobe infarction Onset 08/02/20 Subjective Information Pt was admitted to [place] Query Text:As Reported By Patient/ hospital from 08/02/20 to 08/04/20 Family due to CVA. He reports he feels weak all over. Since discharging home from the hospital he has returned to being independent with ADLs. 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
--- NOTE | 2020-08-14 13:51 | PTOPEVAL ---
Thank you for referring Brando Myrick to [facility].? The patient is scheduled to be seen for therapy? 2 x/week for 4 weeks. Please review, sign, date and return this plan of care HERMAN. I agree with and certify that the following plan of care is medically necessary. Referring Physician Date Attending Provider: Hien Marin PA-C Physical Therapy Evaluation Diagnosis CVA Onset 08/02/20 Cause right parietal lobe infarction Subjective Information Pt was admitted to [place] Query Text:As Reported By Patient/ hospital from 08/02/20 to 08/04/20 Family due to CVA. he reports he feels weak all over. He has trouble lifting a 20# bird seed back. He likes to play golf, but has not played his stroke. He reports limitations with distance walking with c/ o fatigue and weakness. He does not perform a fitness program other than golf and minimal mri assistant. Prior Level of Function Activity Level (Last 3 Months) Occupation retired Hand Dominance Right Activity of Daily Living Ability Independent Indoor/Home Mobility Independent Community Mobility Independent Stairs Ability Independent Cooking Yes Cleaning Yes Laundry Yes Shopping Yes Driving Yes Home Setting Home Type House,Multiple Levels Environmental Barriers Railing, Bilateral,Stairs, Greater than 4,Stairs, Threshold Living Situation With Spouse Support Available Local Family Support Mobility Assistive Devices (Used Last 3 None Months) Comments Additional Prior Level of Function Pt lives with in a single Comments story house with 1 step to enter and 10 steps to basement . Prior to CVA he was indep with all functional mobility, ADL's and IADL's. He did not use a device Pain Assessment Timing of Pain Assessment Assessment Self Report Self Report Pain Level 0 Lower Extremity Muscle Strength Testing Hip Strength Right Hip Flexion Strength 4+ Good + Hip Extension Strength 3- Fair - Hip Abduction Strength 3 Fair Left Hip Flexion Strength
--- NOTE | 2020-08-15 13:50 | STOPEVAL ---
SPEECH THERAPY EVALUATION: Thank you for referring Brando Myrick to [facility].? The patient is scheduled to be seen for therapy?2x/week for 4 weeks. Please review, sign, date and return this plan of care HERMAN. I agree with and certify that the following plan of care is medically necessary. Referring Physician Date Attending Provider: Hien Marin PA-C Primary Dr: Dr Ahsan Leon * Outpatient Evaluation Neurological History Hx Cerebrovascular Accident (CVA) Yes: 08/02/20 Hx Transient Ischemic Attacks (TIA) Yes Cardiovascular History Hx Cardiac Catheterization Yes Hx Coronary Artery Disease Yes Hx Coronary Stent Yes Hx Hypercholesterolemia Yes Hx Myocardial Infarction Yes Respiratory History Hx Respiratory Disorders No Significant History Gastrointestinal History Hx Gastrointestinal Disorders No Significant History Genitourinary History Hx Renal Disease Yes Musculoskeletal History Hx Back Pain Yes Hematological History Hx Anemia Yes Hx Blood Transfusions Yes Endocrine History Hx Diabetes Yes HEENT History Hx Glaucoma Yes Hx Tonsillectomy Yes Prior Level of Function Activity Level (Last 3 Months) 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 Hand Dominance Right Activity of Daily Living Ability Independent Community Mobility Independent Stairs Ability Independent Functional Cognition (Planning, Shopping Independent , Taking Medications) Cooking No Cleaning No Laundry Yes Shopping Yes Driving Yes Prior Swallow Level Prior Intake Method Oral Prior Diet Regular (Level 7 Diet) Prior Liquid Consistency Thin (Level 0 Diet) Prior Cognition/Communication Prior Communication Level No Impairment Prior Cognitive Function Able to Function Independently Prior Ability to Handle Finances Independent Bedside Swallow Evaluation General Reports Dysphagia No: pt denies speech or swallow difficulty Onset of Dysphagia August 02, 2020 (CVA) History of Related Medical Diagnosis CVA Related History reports approximately 10# weight loss since CVA Reported Difficult Consistencies Unable to Identify History of Dysphagia No Other Factors Impacting Dysphagia None History of Pneumonia No Intake Method Prior to Swallow Oral Evaluation Diet Prior to Swallow Evaluation Regular, Level 7 Liquid Consistency Prior to Swallow Thin (0) Evaluation Orthodontic
--- NOTE | 2020-09-01 13:40 | PCPTNOTE ---
Patient's called & cancelled scheduled appointment this date due to not feeling well.
--- NOTE | 2020-09-10 13:48 | STOPEVAL ---
SPEECH THERAPY DISCHARGE: Thank you for referring Brando Myrick to [facility]. At thist time, no further ST is warranted; Pt denies having any further difficulty with swallowing and exhibits no further SXof aspiration. Pt is independent with his HEP. Goals have been met, No further ST is warranted at this time. I agree with and certify that the following plan of care is medically necessary. Referring Physician Date Attending Provider: Hien Marin PA-C Primary Provider: Dr Leon *ST Outpatient Reevaluation Bedside Swallow Evaluation General Reports Dysphagia pt denies dysphagia Onset of Dysphagia August 02, 2020 (CVA) History of Related Medical Diagnosis CVA Reported Difficult Consistencies Unable to Identify History of Dysphagia No Other Factors Impacting Dysphagia None History of Pneumonia No Intake Method Prior to Swallow Oral Evaluation Diet Prior to Swallow Evaluation Regular, Level 7 Liquid Consistency Prior to Swallow Thin (0) Evaluation Orthodontic/Dental Appliances Partial Dentures, Upper, Missing Teeth Consistency Solid Consistency Method of Presentation Finger/Hand Occurrence of Coughing None Vocal Quality After Swallowing Clear Swallow Palpation Results Good Swallow Initiation Pureed Consistency Other Swallow Amount pudding Method of Presentation Spoon Vocal Quality After Swallowing Clear Swallow Palpation Results Good Swallow Initiation,Strong Laryngeal Elevation Thin Uncontrolled 1 Method of Presentation Cup Behaviors Observed Apparently Normal Swallow Occurrence of Coughing None Vocal Quality After Swallowing Clear Swallow Palpation Results Good Swallow Initiation Tolerance Tolerance For Swallow No Distress Alertness Awake/Safe Cooperativeness Calm,Cooperative Awareness of Secretions Aware Postural Control Moves Independently Ability to Follow Directions Independent Swallowing Comments Pt intermittently used chin tuck posture during re-testing . No overt SX of aspiration were exhibited. Recommendations Feeding Type Recommended Oral Supervision Recommended Eat Independently Positions Used Upright Bedside Swallow Comments Check voice during meals, if it sounds gurgly and wet, cough or clear throat and swallow. Repeat until voice is clear and without gurgle. Speech Therapy Teaching Speech Therapy Teaching Teaching Topic Swallowing/C
--- NOTE | 2020-09-10 14:50 | PTOPEVAL ---
Thank you for referring Brando Myrick to [facility].? Brando has been seen for 4 therapy visits to address his impairments related to his stroke. He has reached maximal potential with skilled therapy services at this time. Will D/C skilled therapy services at this time with goals partially achieved Please review, sign, date and return this discharge summary HERMAN. I agree with and certify that the following plan of care is medically necessary. Referring Physician Date Attending Provider: Hien Marin PA-C Discharge Note Problem Diagnosis CVA, right parietal lobe infarction Onset 08/02/20 Cause right parietal lobe infarction Subjective Information Pt was admitted to [place] Query Text:As Reported By Patient/ hospital from 08/02/20 to 08/04/20 Family due to CVA. He is not performing his leg exercise, but is walking daily around the house. He is walking the steps at home.Denies any problems walking outside. Pain Assessment Numeric (1 - 10) Self Report Pain Assessment Lower Back Reported Pain Level 5 Pain Score Pain Score 5: Self Report Lower Extremity Muscle Strength Testing Hip Strength Right Hip Flexion Strength 4+ Good + Hip Extension Strength 4 Good Hip Abduction Strength 3 Fair Left Hip Flexion Strength 4+ Good + Hip Extension Strength 3 Fair Hip Abduction Strength 3 Fair Knee Strength Right Knee Flexion Strength 4+ Good + Knee Extension Strength 5 Normal Left Knee Flexion Strength 4+ Good + Knee Extension Strength 5 Normal Ankle Strength Bilateral Ankle Dorsiflexion Strength 5 Normal Transfer Assessment Floor Transfer Assessment Floor Transfer Destination Standing Sit to Floor Transfer Ability Independent Floor to Sit Transfer Ability Independent Stand to Floor Transfer Ability Independent Floor to Stand Transfer Ability Independent Floor Transfer Ability Independent Floor Transfer Comments mat to assist with standing Balance Assessment Leyva Balance Assessment LEYVA Balance Evaluation Total Score (48/56 points) Comments single leg right:3 sec left: 10 sec, poor trunk and LE control with right legs Time Up Go (TUG) Timed Up and Go Test (TUG) (Seconds) 18 Assistive Devices None 5 Time Sit to Stand Time in Seconds 179 5 Time Sit to Stand Comments without use of UE's Gait Assessment Ambulation Assistive Devices None Ambulation Surface Grass,Incline,Rou
== END 2020-09-11 14:26 | disposition home or self-care (01) ==
LOC: ANHPT 14:00
PROVIDERS: PCP Internal Medicine; Visit Provider Physician Assistant
DX: I63.9 Cerebral infarction, unspecified (principal)
CPT/HCPCS: 92526; 92610; 97110; 97112; 97162; 97165; 97530

== ENCOUNTER 2020-09-19 11:51 | Outpatient (CLI) | payer MEDICARE, BC, SELFPAY ==
[2020-09-19 12:35] LABS: Basophils Percent Auto 0.4 % (0.2-1.2); Eosinophils Absolute Auto 0.2 K/mm3 (0-0.3); Eosinophils Percent Auto 1.7 % (0-4.4); Hematocrit 31.8 % (42.0-52.0); Hemoglobin 10.5 g/dL (14.0-18.0); Immature Granulocyte Absolute 0.07 K/mm3 (0.00-0.031); Immature Granulocyte Percent A 0.6 % (0-0.5); Lymphocytes Absolute Auto 1.87 K/mm3 (0.9-3.2); Lymphocytes Percent Auto 16.9 % (18.3-44.2); Mean Corpuscular Hemoglobin 31.9 pg (26-34); Mean Corpuscular Volume 96.7 fl (80-100); Mean Platelet Volume 11.1 fl (7.4-10.4); Monocytes Absolute Auto 1.4 K/mm3 (0.1-0.6); Monocytes Percent Auto 12.9 % (2.6-8.5); Neutrophils Absolute Auto 7.5 K/mm3 (1.3-6.7); Neutrophils Percent Auto 67.5 % (45.5-73.1); Platelet Count Result 301 k/mm3 (150-375); Red Blood Count 3.29 M/mm3 (4.6-6.20); Red Cell Distribution Width 12.6 % (11.5-14.5); White Blood Count 11.1 K/mm3 (4.5-10.0)
[2020-09-19 12:43] LABS: Anion Gap 4 mmol/L (8-16); Blood Urea Nitrogen 19 mg/dL (9-20); Calcium 9.3 mg/dL (8.4-10.2); Carbon Dioxide 30 mmol/L (22-30); Chloride 106 mmol/L (98-107); Estimated Glomerular Filt Rate 25; Glucose 115 mg/dL (75-110); Magnesium 1.9 mg/dL (1.6-2.3); Phosphorus 4.1 mg/dL (2.5-4.5); Potassium 4.9 mmol/L (3.4-5.0); Sodium 140 mmol/L (137-145)
[2020-09-19 12:44] LABS: Hemoglobin A1C 6.3 % (<5.7)
[2020-09-19 12:55] LABS: Parathyroid Intact 60.1 pg/mL (7.5-53.5)
[2020-09-19 13:00] LABS: Total Protein Urine Random 79 mg/dL; Ur Ttl Prot Creatinine Ratio 0.37 mg/mg (0-0.20)
[2020-09-19 13:21] LABS: Iron 60 ug/dL (49-181); Vitamin D 25 Hydroxy 74.2 ng/mL
[2020-09-19 13:43] LABS: Microalbumin Urine Random 325.8 mg/L (0-16.7); Percent Iron Saturation 14 % (20-50)
[2020-09-19 13:45] LABS: Prostate Specific Antigen 2.7 ng/mL (< OR = 4.0)
== END 2020-09-19 11:52 | disposition home or self-care (01) ==
LOC: ANHLAB 11:56
PROVIDERS: PCP Internal Medicine; Visit Provider Internal Medicine Nephrology
DX: N18.4 Chronic kidney disease, stage 4 (severe) (principal); D63.1 Anemia in chronic kidney disease; D50.9 Iron deficiency anemia, unspecified; E11.9 Type 2 diabetes mellitus without complications; N25.0 Renal osteodystrophy; E55.9 Vitamin D deficiency, unspecified; R35.0 Frequency of micturition; R35.1 Nocturia; I10 Essential (primary) hypertension; E11.311 Type 2 diabetes mellitus with unspecified diabetic retinopathy with macular edema; I25.10 Atherosclerotic heart disease of native coronary artery without angina pectoris; E87.5 Hyperkalemia; N39.41 Urge incontinence; N17.9 Acute kidney failure, unspecified
CPT/HCPCS: 36415; 80069; 82043; 82306; 82570; 82728; 83036; 83540; 83550; 83735; 83970; 84153; 84156; 85025

== ENCOUNTER 2020-12-02 11:30 | Outpatient (CLI) | payer MEDICARE, BC, SELFPAY ==
[2020-12-02 11:51] LABS: Basophils Percent Auto 0.3 % (0.2-1.2); Eosinophils Absolute Auto 0.2 K/mm3 (0-0.3); Eosinophils Percent Auto 2.8 % (0-4.4); Hematocrit 21.3 % (42.0-52.0); Immature Granulocyte Absolute 0.03 K/mm3 (0.00-0.031); Immature Granulocyte Percent A 0.4 % (0-0.5); Lymphocytes Absolute Auto 1.39 K/mm3 (0.9-3.2); Lymphocytes Percent Auto 17.4 % (18.3-44.2); Mean Corpuscular Hemoglobin 27.7 pg (26-34); Mean Corpuscular Volume 89.5 fl (80-100); Mean Platelet Volume 10.7 fl (7.4-10.4); Monocytes Absolute Auto 1.1 K/mm3 (0.1-0.6); Monocytes Percent Auto 13.9 % (2.6-8.5); Neutrophils Absolute Auto 5.2 K/mm3 (1.3-6.7); Neutrophils Percent Auto 65.2 % (45.5-73.1); Platelet Count Result 337 k/mm3 (150-375); Red Blood Count 2.38 M/mm3 (4.6-6.20); Red Cell Distribution Width 13.3 % (11.5-14.5)
[2020-12-02 11:53] LABS: Hemoglobin 6.6 g/dL (14.0-18.0)
[2020-12-02 16:35] LABS: Iron 13 ug/dL (49-181)
[2020-12-02 16:41] LABS: Anion Gap 9 mmol/L (8-16); Blood Urea Nitrogen 24 mg/dL (9-20); Calcium 9.1 mg/dL (8.4-10.2); Carbon Dioxide 25 mmol/L (22-30); Chloride 102 mmol/L (98-107); Estimated Glomerular Filt Rate 25; Glucose 145 mg/dL (75-110); Potassium 4.9 mmol/L (3.4-5.0); Sodium 136 mmol/L (137-145)
[2020-12-02 16:46] LABS: Percent Iron Saturation 3 % (20-50)
[2020-12-02 17:47] LABS: Folic Acid 5.2 ng/mL (2.76->20)
== END 2020-12-02 11:31 | disposition home or self-care (01) ==
LOC: ANHLAB 11:37
PROVIDERS: PCP Internal Medicine; Visit Provider Internal Medicine Hematology & Oncology
DX: D64.9 Anemia, unspecified (principal)
CPT/HCPCS: 36415; 80048; 82607; 82728; 82746; 83540; 83550; 85025

== ENCOUNTER 2020-12-04 07:40 | Outpatient (RCR) | payer MEDICARE, BC, SELFPAY ==
[2020-12-04] VITALS (10 sets, daily range): BP systolic 123–173; BP diastolic 49–65; PULSE 64–74; RESP 16–18; TEMP 36.1–36.4; O2SAT 95–99
[2020-12-04 09:00] LABS: Hemoglobin 6.1 g/dL (14.0-18.0)
[2020-12-04 09:01] LABS: Hematocrit 19.8 % (42.0-52.0)
[2020-12-04] MEDS: ACETAMINOPHEN 325 MG TABLET 650 MG PO (09:26)
[2020-12-04] MEDS: diphenhydrAMINE HCl CAP 25 MG CAPSULE PO (09:27)
[2020-12-04] MEDS: SODIUM CHLORIDE 0.9% IV 250 ML 30 ML IV CONT (09:31)
[2020-12-04] MEDS: FUROSEMIDE INJ 40 MG/4 ML VIAL 20 MG IV PUSH (12:31)
== END 2021-03-03 23:59 | disposition home or self-care (01) ==
LOC: ANHCPCTRAN 07:40
PROVIDERS: PCP Internal Medicine; Visit Provider Internal Medicine Hematology & Oncology
DX: D64.9 Anemia, unspecified (principal)
CPT/HCPCS: 36415; 36430; 85014; 85018; 86850; 86900; 86901; 86920; 96374; A9270; J1940; J7050; P9016

== ENCOUNTER 2020-12-24 11:52 | Outpatient (CLI) | payer MEDICARE, BC, SELFPAY ==
[2020-12-24 12:14] LABS: Basophils Percent Auto 0.3 % (0.2-1.2); Eosinophils Absolute Auto 0.2 K/mm3 (0-0.3); Eosinophils Percent Auto 2.3 % (0-4.4); Hematocrit 30.3 % (42.0-52.0); Hemoglobin 9.5 g/dL (14.0-18.0); Immature Granulocyte Absolute 0.03 K/mm3 (0.00-0.031); Immature Granulocyte Percent A 0.3 % (0-0.5); Lymphocytes Absolute Auto 1.26 K/mm3 (0.9-3.2); Lymphocytes Percent Auto 14.3 % (18.3-44.2); Mean Corpuscular HGB Conc 31.4 g/dl (32-36); Mean Corpuscular Hemoglobin 28.3 pg (26-34); Mean Corpuscular Volume 90.2 fl (80-100); Mean Platelet Volume 10.8 fl (7.4-10.4); Monocytes Percent Auto 11.5 % (2.6-8.5); Neutrophils Absolute Auto 6.3 K/mm3 (1.3-6.7); Neutrophils Percent Auto 71.3 % (45.5-73.1); Platelet Count Result 395 k/mm3 (150-375); Red Blood Count 3.36 M/mm3 (4.6-6.20); Red Cell Distribution Width 19.4 % (11.5-14.5); White Blood Count 8.8 K/mm3 (4.5-10.0)
[2020-12-24 14:26] LABS: Iron 250 ug/dL (49-181)
[2020-12-24 14:37] LABS: Percent Iron Saturation 57 % (20-50)
[2020-12-24 15:25] LABS: Vitamin B12 > 1000.0 pg/mL (239-931)
== END 2020-12-24 11:53 | disposition home or self-care (01) ==
PROVIDERS: PCP Internal Medicine; Visit Provider Internal Medicine Hematology & Oncology
DX: D64.9 Anemia, unspecified (principal)
CPT/HCPCS: 36415; 82274; 82607; 82728; 83540; 83550; 85025

== ENCOUNTER 2020-12-25 13:55 | Outpatient (CLI) | payer MEDICARE, BC, SELFPAY ==
[2020-12-25 17:05] LABS: IFOB Positive Control Positive; Immunochemical Fecal Occult Bl Positive (N)
== END 2020-12-25 13:56 | disposition home or self-care (01) ==
LOC: ANHLAB 14:01
PROVIDERS: PCP Internal Medicine; Visit Provider Internal Medicine Hematology & Oncology
DX: D64.9 Anemia, unspecified (principal)
CPT/HCPCS: 82274

== ENCOUNTER 2021-01-28 09:36 | Outpatient (CLI) | payer MEDICARE, BC, SELFPAY ==
[2021-01-28 10:08] LABS: Basophils Percent Auto 0.3 % (0.2-1.2); Eosinophils Absolute Auto 0.2 K/mm3 (0-0.3); Eosinophils Percent Auto 2.1 % (0-4.4); Hematocrit 31.3 % (42.0-52.0); Immature Granulocyte Absolute 0.02 K/mm3 (0.00-0.031); Immature Granulocyte Percent A 0.3 % (0-0.5); Lymphocytes Percent Auto 13.9 % (18.3-44.2); Mean Corpuscular HGB Conc 31.9 g/dl (32-36); Mean Corpuscular Hemoglobin 30.6 pg (26-34); Mean Corpuscular Volume 95.7 fl (80-100); Mean Platelet Volume 10.5 fl (7.4-10.4); Monocytes Absolute Auto 0.9 K/mm3 (0.1-0.6); Monocytes Percent Auto 11.5 % (2.6-8.5); Neutrophils Absolute Auto 5.7 K/mm3 (1.3-6.7); Neutrophils Percent Auto 71.9 % (45.5-73.1); Platelet Count Result 312 k/mm3 (150-375); Red Blood Count 3.27 M/mm3 (4.6-6.20); Red Cell Distribution Width 17.6 % (11.5-14.5); White Blood Count 7.9 K/mm3 (4.5-10.0)
[2021-01-28 14:16] LABS: Iron 123 ug/dL (49-181)
[2021-01-28 14:25] LABS: Percent Iron Saturation 32 % (20-50)
[2021-01-28 14:26] LABS: Anion Gap 5 mmol/L (8-16); Blood Urea Nitrogen 21 mg/dL (9-20); Calcium 8.8 mg/dL (8.4-10.2); Carbon Dioxide 27 mmol/L (22-30); Chloride 104 mmol/L (98-107); Estimated Glomerular Filt Rate 30; Glucose 215 mg/dL (65-110); Sodium 136 mmol/L (137-145)
== END 2021-01-28 09:37 | disposition home or self-care (01) ==
LOC: ANHLAB 09:42
PROVIDERS: PCP Internal Medicine; Visit Provider Internal Medicine Hematology & Oncology
DX: D64.9 Anemia, unspecified (principal)
CPT/HCPCS: 36415; 80048; 82607; 82728; 83540; 83550; 85025

== ENCOUNTER 2021-02-03 12:24 | Outpatient (CLI) | payer MEDICARE, BC, SELFPAY ==
[2021-02-03 13:07] LABS: Basophils Percent Auto 0.4 % (0.2-1.2); Eosinophils Absolute Auto 0.2 K/mm3 (0-0.3); Hematocrit 32.1 % (42.0-52.0); Hemoglobin 10.4 g/dL (14.0-18.0); Immature Granulocyte Absolute 0.05 K/mm3 (0.00-0.031); Immature Granulocyte Percent A 0.6 % (0-0.5); Lymphocytes Absolute Auto 1.59 K/mm3 (0.9-3.2); Mean Corpuscular HGB Conc 32.4 g/dl (32-36); Mean Corpuscular Hemoglobin 31.1 pg (26-34); Mean Corpuscular Volume 96.1 fl (80-100); Mean Platelet Volume 10.9 fl (7.4-10.4); Monocytes Absolute Auto 1.1 K/mm3 (0.1-0.6); Monocytes Percent Auto 13.2 % (2.6-8.5); Neutrophils Absolute Auto 5.4 K/mm3 (1.3-6.7); Neutrophils Percent Auto 64.8 % (45.5-73.1); Platelet Count Result 320 k/mm3 (150-375); Red Blood Count 3.34 M/mm3 (4.6-6.20); Red Cell Distribution Width 16.9 % (11.5-14.5); White Blood Count 8.4 K/mm3 (4.5-10.0)
[2021-02-03 13:38] LABS: Albumin Level 3.8 g/dL (3.5-5.1); Anion Gap 5 mmol/L (8-16); Blood Urea Nitrogen 23 mg/dL (9-20); Calcium 9.2 mg/dL (8.4-10.2); Carbon Dioxide 28 mmol/L (22-30); Chloride 105 mmol/L (98-107); Cholesterol 140 mg/dL (0-200); Estimated Glomerular Filt Rate 30; Glucose 193 mg/dL (65-110); HDL Direct 55 mg/dL; Magnesium 2.1 mg/dL (1.6-2.3); Phosphorus 4.6 mg/dL (2.5-4.5); Potassium 5.5 mmol/L (3.4-5.0); Sodium 138 mmol/L (137-145); Triglycerides 101 mg/dL (<150)
[2021-02-03 13:47] LABS: Parathyroid Intact 50.7 pg/mL (7.5-53.5)
[2021-02-03 13:49] LABS: LDL Cholesterol Direct 65 mg/dL
[2021-02-03 14:32] LABS: Vitamin D 25 Hydroxy 70.1 ng/mL
[2021-02-03 14:35] LABS: Creatinine Urine 120.8 mg/dL; Total Protein Urine Random 66 mg/dL; Ur Ttl Prot Creatinine Ratio 0.55 mg/mg (0-0.20)
[2021-02-03 15:00] LABS: MALB Creatinine Ratio 226.9 mg/g (0-30); Microalbumin Urine Random 274.1 mg/L (0-16.7)
[2021-02-03 15:48] LABS: Hemoglobin A1C 6.2 % (<5.7)
== END 2021-02-03 12:25 | disposition home or self-care (01) ==
PROVIDERS: PCP Internal Medicine; Referring Provider Internal Medicine; Visit Provider Internal Medicine Nephrology
DX: E78.5 Hyperlipidemia, unspecified (principal); D63.1 Anemia in chronic kidney disease; E11.9 Type 2 diabetes mellitus without complications; I63.9 Cerebral infarction, unspecified; N17.9 Acute kidney failure, unspecified; E55.9 Vitamin D deficiency, unspecified
CPT/HCPCS: 36415; 80061; 80069; 82043; 82306; 82570; 83036; 83735; 83970; 84156; 85025

== ENCOUNTER 2021-02-13 07:16 | Outpatient (CLI) | payer MEDICARE, BC, SELFPAY ==
--- NOTE | ~2021-02-13 | CT_ITS ---
EXAMINATION: CT abdomen pelvis wo con DATE: 02/13/2021 07:56 INDICATION: Chronic anemia TECHNIQUE: Computed tomography (CT) of the abdomen and pelvis was performed without intravenous contr ast. The dose-length product (DLP) was 258.20 mGy-cm. Automated exposure control and iterative recons truction technique were employed. COMPARISON: None FINDINGS: There are subpleural reticular and groundglass opacities of the visualized lung bases. Card iomegaly is noted. The liver, spleen, pancreas, and adrenal glands are normal. Stones are present in the nondistended gallbladder. Cysts of the kidneys measure up to 5.3 cm on the left. There is calcifi ed atherosclerosis of the aorta and many of the other arteries. No pathologically enlarged abdominal or pelvic lymph nodes are identified. There is no free intraperitoneal gas or evidence of bowel obstr uction. There is a left inguinal hernia containing the left anterolateral wall of the urinary bladder . Colonic diverticulosis is present without evidence of diverticulitis. A moderate volume of colonic stool is present. The appendix is normal. There is severe lumbar spondylosis. IMPRESSION: 1. No CT correlate for the patient's symptoms. 2. Left inguinal hernia containing part of the urinary bladder. 3. Cholelithiasis without evidence of cholecystitis. 4. Chronic interstitial lung disease in the visualized lung bases in a pattern of nonspecific interst itial pneumonia (NSIP). Reviewed, dictated and finalized at location A. IMPRESSION: 1. No CT correlate for the patient's symptoms. 2. Left inguinal hernia containing part of the urinary bladder. 3. Cholelithiasis without evidence of cholecystitis. 4. Chronic interstitial lung disease in the visualized lung bases in a pattern of nonspecific interstitial pneumonia (NSIP).
== END 2021-02-13 07:17 | disposition home or self-care (01) ==
PROVIDERS: PCP Internal Medicine; Visit Provider Internal Medicine Hematology & Oncology
DX: D64.9 Anemia, unspecified (principal); K40.90 Unilateral inguinal hernia, without obstruction or gangrene, not specified as recurrent; K80.20 Calculus of gallbladder without cholecystitis without obstruction; J84.9 Interstitial pulmonary disease, unspecified
CPT/HCPCS: 74176

== ENCOUNTER 2021-02-26 14:39 | Outpatient (CLI) | payer MEDICARE, BC, SELFPAY ==
[2021-02-26 14:59] LABS: Hematocrit 33.1 % (42.0-52.0); Hemoglobin 10.8 g/dL (14.0-18.0); Mean Corpuscular HGB Conc 32.6 g/dl (32-36); Mean Corpuscular Hemoglobin 31.3 pg (26-34); Mean Corpuscular Volume 95.9 fl (80-100); Mean Platelet Volume 10.9 fl (7.4-10.4); Platelet Count Result 312 k/mm3 (150-375); Red Blood Count 3.45 M/mm3 (4.6-6.20); Red Cell Distribution Width 14.1 % (11.5-14.5); White Blood Count 9.6 K/mm3 (4.5-10.0)
[2021-02-26 16:37] LABS: Iron 123 ug/dL (49-181)
[2021-02-26 16:47] LABS: Percent Iron Saturation 33 % (20-50)
== END 2021-02-26 14:40 | disposition home or self-care (01) ==
LOC: ANHLAB 14:41
PROVIDERS: PCP Internal Medicine; Visit Provider Internal Medicine Hematology & Oncology
DX: D64.9 Anemia, unspecified (principal)
CPT/HCPCS: 36415; 82728; 83540; 83550; 85027

== ENCOUNTER 2021-06-03 12:55 | Outpatient (CLI) | payer MEDICARE, BC, SELFPAY ==
[2021-06-03 13:20] LABS: Hematocrit 38.1 % (42.0-52.0); Hemoglobin 12.1 g/dL (14.0-18.0); Mean Corpuscular HGB Conc 31.8 g/dl (32-36); Mean Corpuscular Hemoglobin 31.6 pg (26-34); Mean Corpuscular Volume 99.5 fl (80-100); Mean Platelet Volume 11.2 fl (7.4-10.4); Platelet Count Result 331 k/mm3 (150-375); Red Blood Count 3.83 M/mm3 (4.6-6.20); Red Cell Distribution Width 12.7 % (11.5-14.5); White Blood Count 10.2 K/mm3 (4.5-10.0)
[2021-06-03 15:02] LABS: Iron 150 ug/dL (49-181)
[2021-06-03 15:11] LABS: Anion Gap 6 mmol/L (8-16); Blood Urea Nitrogen 23 mg/dL (9-20); Calcium 9.2 mg/dL (8.4-10.2); Carbon Dioxide 28 mmol/L (22-30); Chloride 102 mmol/L (98-107); Estimated Glomerular Filt Rate 24; Glucose 204 mg/dL (65-110); Potassium 5.3 mmol/L (3.4-5.0); Sodium 136 mmol/L (137-145)
[2021-06-03 15:12] LABS: Percent Iron Saturation 43 % (20-50)
== END 2021-06-03 12:56 | disposition home or self-care (01) ==
PROVIDERS: PCP Internal Medicine; Visit Provider Internal Medicine Hematology & Oncology
DX: D64.9 Anemia, unspecified (principal)
CPT/HCPCS: 36415; 80048; 82728; 83540; 83550; 85027

== ENCOUNTER 2021-06-10 14:26 | Outpatient (CLI) | payer MEDICARE, BC, SELFPAY ==
[2021-06-10 14:59] LABS: Hematocrit 37.1 % (42.0-52.0); Hemoglobin 12.3 g/dL (14.0-18.0); Mean Corpuscular HGB Conc 33.2 g/dl (32-36); Mean Corpuscular Hemoglobin 32.5 pg (26-34); Mean Corpuscular Volume 97.9 fl (80-100); Platelet Count Result 303 k/mm3 (150-375); Red Blood Count 3.79 M/mm3 (4.6-6.20); Red Cell Distribution Width 12.9 % (11.5-14.5); White Blood Count 9.6 K/mm3 (4.5-10.0)
[2021-06-10 15:09] LABS: Albumin Level 3.8 g/dL (3.5-5.1); Anion Gap 8 mmol/L (8-16); Blood Urea Nitrogen 22 mg/dL (9-20); Calcium 8.8 mg/dL (8.4-10.2); Carbon Dioxide 27 mmol/L (22-30); Chloride 100 mmol/L (98-107); Estimated Glomerular Filt Rate 27; Glucose 292 mg/dL (65-110); Phosphorus 4.3 mg/dL (2.5-4.5); Sodium 135 mmol/L (137-145)
[2021-06-10 15:11] LABS: Hemoglobin A1C 7.9 % (<5.7)
[2021-06-10 15:33] LABS: Iron 128 ug/dL (49-181)
[2021-06-10 15:34] LABS: Creatinine Urine 161.4 mg/dL; Total Protein Urine Random 127 mg/dL; Ur Ttl Prot Creatinine Ratio 0.79 mg/mg (0-0.20)
[2021-06-10 15:37] LABS: Vitamin D 25 Hydroxy 40.8 ng/mL
[2021-06-10 15:41] LABS: Percent Iron Saturation 38 % (20-50)
[2021-06-10 16:23] LABS: MALB Creatinine Ratio 373.3 mg/g (0-30); Microalbumin Urine Random 602.5 mg/L (0-16.7)
== END 2021-06-10 14:27 | disposition home or self-care (01) ==
LOC: ANHLAB 14:34
PROVIDERS: PCP Internal Medicine; Visit Provider Internal Medicine Nephrology
DX: I13.0 Hypertensive heart and chronic kidney disease with heart failure and stage 1 through stage 4 chronic kidney disease, or unspecified chronic kidney disease (principal); N18.32 Chronic kidney disease, stage 3b; R80.1 Persistent proteinuria, unspecified; I25.9 Chronic ischemic heart disease, unspecified; I25.84 Coronary atherosclerosis due to calcified coronary lesion; I63.9 Cerebral infarction, unspecified; D50.8 Other iron deficiency anemias; E11.22 Type 2 diabetes mellitus with diabetic chronic kidney disease; E78.00 Pure hypercholesterolemia, unspecified; H40.003 Preglaucoma, unspecified, bilateral
CPT/HCPCS: 36415; 80069; 82043; 82306; 82570; 82728; 83036; 83540; 83550; 83735; 84156; 85027

== ENCOUNTER 2021-08-31 15:45 | Outpatient (CLI) | payer MEDICARE, BC, SELFPAY ==
[2021-08-31 16:20] LABS: Hematocrit 36.5 % (42.0-52.0); Hemoglobin 11.7 g/dL (14.0-18.0); Mean Corpuscular HGB Conc 32.1 g/dl (32-36); Mean Corpuscular Hemoglobin 31.7 pg (26-34); Mean Corpuscular Volume 98.9 fl (80-100); Mean Platelet Volume 11.4 fl (7.4-10.4); Platelet Count Result 295 k/mm3 (150-375); Red Blood Count 3.69 M/mm3 (4.6-6.20); Red Cell Distribution Width 12.2 % (11.5-14.5); White Blood Count 8.3 K/mm3 (4.5-10.0)
[2021-08-31 16:35] LABS: Albumin Level 4.1 g/dL (3.5-5.1); Anion Gap 5 mmol/L (8-16); Blood Urea Nitrogen 24 mg/dL (9-20); Calcium 8.7 mg/dL (8.4-10.2); Carbon Dioxide 29 mmol/L (22-30); Chloride 102 mmol/L (98-107); Cholesterol 139 mg/dL (0-200); Estimated Glomerular Filt Rate 27; Glucose 287 mg/dL (65-110); HDL Direct 53 mg/dL; Phosphorus 4.1 mg/dL (2.5-4.5); Potassium 4.9 mmol/L (3.4-5.0); Sodium 136 mmol/L (137-145); Triglycerides 144 mg/dL (<150)
[2021-08-31 16:46] LABS: LDL Cholesterol Direct 56 mg/dL
[2021-08-31 16:48] LABS: Iron 98 ug/dL (49-181)
[2021-08-31 17:05] LABS: Creatinine Urine 119.1 mg/dL
[2021-08-31 17:06] LABS: Percent Iron Saturation 23 % (20-50)
[2021-08-31 17:10] LABS: Hemoglobin A1C 7.8 % (<5.7)
[2021-08-31 17:32] LABS: Vitamin B12 > 1000.0 pg/mL (239-931)
[2021-08-31 17:53] LABS: Parathyroid Intact 87.5 pg/mL (7.5-53.5)
[2021-08-31 18:16] LABS: Vitamin D 25 Hydroxy 55.9 ng/mL
[2021-08-31 19:32] LABS: MALB Creatinine Ratio 418.1 mg/g (0-30)
== END 2021-08-31 15:46 | disposition home or self-care (01) ==
LOC: ANHLAB 15:52
PROVIDERS: PCP Internal Medicine; Visit Provider Internal Medicine Nephrology
DX: R80.1 Persistent proteinuria, unspecified (principal); N40.0 Benign prostatic hyperplasia without lower urinary tract symptoms; I51.9 Heart disease, unspecified; I25.84 Coronary atherosclerosis due to calcified coronary lesion; I12.9 Hypertensive chronic kidney disease with stage 1 through stage 4 chronic kidney disease, or unspecified chronic kidney disease; N18.4 Chronic kidney disease, stage 4 (severe); I63.9 Cerebral infarction, unspecified; D50.8 Other iron deficiency anemias; E11.22 Type 2 diabetes mellitus with diabetic chronic kidney disease; E78.00 Pure hypercholesterolemia, unspecified; H40.003 Preglaucoma, unspecified, bilateral
CPT/HCPCS: 36415; 80061; 80069; 82043; 82306; 82607; 82728; 83036; 83540; 83550; 83735; 83970; 85027

== ENCOUNTER 2021-09-25 14:14 | Outpatient (CLI) | payer MEDICARE, BC, SELFPAY ==
[2021-09-25 14:37] LABS: Basophils Percent Auto 0.2 % (0.2-1.2); Eosinophils Absolute Auto 0.2 K/mm3 (0-0.3); Eosinophils Percent Auto 1.9 % (0-4.4); Hematocrit 37.2 % (42.0-52.0); Hemoglobin 11.5 g/dL (14.0-18.0); Immature Granulocyte Absolute 0.04 K/mm3 (0.00-0.031); Immature Granulocyte Percent A 0.4 % (0-0.5); Lymphocytes Absolute Auto 1.62 K/mm3 (0.9-3.2); Lymphocytes Percent Auto 17.5 % (18.3-44.2); Mean Corpuscular HGB Conc 30.9 g/dl (32-36); Mean Corpuscular Hemoglobin 31.7 pg (26-34); Mean Corpuscular Volume 102.5 fl (80-100); Mean Platelet Volume 11.6 fl (7.4-10.4); Monocytes Absolute Auto 1.2 K/mm3 (0.1-0.6); Monocytes Percent Auto 12.8 % (2.6-8.5); Neutrophils Absolute Auto 6.2 K/mm3 (1.3-6.7); Neutrophils Percent Auto 67.2 % (45.5-73.1); Platelet Count Result 282 k/mm3 (150-375); Red Blood Count 3.63 M/mm3 (4.6-6.20); Red Cell Distribution Width 12.1 % (11.5-14.5); White Blood Count 9.2 K/mm3 (4.5-10.0)
[2021-09-25 15:34] LABS: Iron 109 ug/dL (49-181)
[2021-09-25 15:35] LABS: Anion Gap 4 mmol/L (8-16); Blood Urea Nitrogen 19 mg/dL (9-20); Calcium 8.7 mg/dL (8.4-10.2); Carbon Dioxide 30 mmol/L (22-30); Chloride 103 mmol/L (98-107); Estimated Glomerular Filt Rate 29; Glucose 168 mg/dL (65-110); Potassium 4.7 mmol/L (3.4-5.0); Sodium 137 mmol/L (137-145)
[2021-09-25 15:44] LABS: Percent Iron Saturation 26 % (20-50)
[2021-09-25 16:41] LABS: Folic Acid 6.8 ng/mL (2.76->20)
== END 2021-09-25 14:15 | disposition home or self-care (01) ==
LOC: ANHLAB 14:19
PROVIDERS: PCP Internal Medicine; Visit Provider Internal Medicine Hematology & Oncology
DX: D64.9 Anemia, unspecified (principal)
CPT/HCPCS: 36415; 80048; 82607; 82728; 82746; 83540; 83550; 85025

== ENCOUNTER 2021-12-03 13:20 | Outpatient (CLI) | payer MEDICARE, BC, SELFPAY ==
[2021-12-03 13:55] LABS: Hematocrit 36.7 % (42.0-52.0); Hemoglobin 12.3 g/dL (14.0-18.0); Mean Corpuscular HGB Conc 33.5 g/dl (32-36); Mean Corpuscular Hemoglobin 31.9 pg (26-34); Mean Corpuscular Volume 95.1 fl (80-100); Mean Platelet Volume 11.4 fl (7.4-10.4); Platelet Count Result 266 k/mm3 (150-375); Red Blood Count 3.86 M/mm3 (4.6-6.20); Red Cell Distribution Width 12.2 % (11.5-14.5); White Blood Count 8.4 K/mm3 (4.5-10.0)
[2021-12-03 14:14] LABS: Albumin Level 3.9 g/dL (3.5-5.1); Anion Gap 2 mmol/L (8-16); Blood Urea Nitrogen 23 mg/dL (9-20); Calcium 8.4 mg/dL (8.4-10.2); Carbon Dioxide 30 mmol/L (22-30); Chloride 103 mmol/L (98-107); Estimated Glomerular Filt Rate 26; Glucose 276 mg/dL (65-110); Phosphorus 4.2 mg/dL (2.5-4.5); Potassium 5.1 mmol/L (3.4-5.0); Sodium 135 mmol/L (137-145)
[2021-12-03 14:25] LABS: Parathyroid Intact 96.7 pg/mL (7.5-53.5)
[2021-12-03 14:32] LABS: Vitamin D 25 Hydroxy 44.7 ng/mL
[2021-12-03 14:42] LABS: Creatinine Urine 184.6 mg/dL; Total Protein Urine Random 191 mg/dL; Ur Ttl Prot Creatinine Ratio 1.03 mg/mg (0-0.20)
[2021-12-03 16:05] LABS: Microalbumin Urine Random 948.9 mg/L (0-16.7)
== END 2021-12-03 13:21 | disposition home or self-care (01) ==
PROVIDERS: PCP Internal Medicine; Visit Provider Internal Medicine Nephrology
DX: E11.22 Type 2 diabetes mellitus with diabetic chronic kidney disease (principal); N18.4 Chronic kidney disease, stage 4 (severe); N40.0 Benign prostatic hyperplasia without lower urinary tract symptoms; R80.1 Persistent proteinuria, unspecified; I25.84 Coronary atherosclerosis due to calcified coronary lesion; I63.9 Cerebral infarction, unspecified; D50.8 Other iron deficiency anemias; I11.0 Hypertensive heart disease with heart failure; E78.00 Pure hypercholesterolemia, unspecified; H40.003 Preglaucoma, unspecified, bilateral
CPT/HCPCS: 36415; 80069; 82043; 82306; 82570; 82728; 83735; 83970; 84156; 85027

== ENCOUNTER 2021-12-04 15:03 | Emergency (ER) | payer OTHER, MEDICARE, BC, SELFPAY ==
--- NOTE | ~2021-12-04 | CT_ITS ---
EXAMINATION: CT brain wo con DATE: 12/04/2021 16:01 INDICATION: Minor head injury TECHNIQUE: Computed tomography (CT) of the head was performed without intravenous contrast. The mA wa s adjusted according to patient size. Iterative reconstruction technique was employed. Exam dose: 60 5.33 mGy-cm total exam DLP. COMPARISON: 08/02/2020 CT brain 08/02/2020 MRI brain/brainstem FINDINGS: Bilateral vertebral artery and carotid siphon internal carotid artery calcifications. There is nonspecific diminished attenuation of the cerebral white matter, likely due to chronic small vessel ischemic changes. Chronic lacunar infarct in the left periventricular area. Small chronic infarct of left internal caps ule. Chronic left basal ganglia lacunar infarct. No intracranial mass lesion or hemorrhage. No midline shift or mass effect effect. There is central and cortical cerebral and cerebellar atrophy. No subdural or epidural hematoma is detected. No fracture or bone destruction of the cranial vault. The mastoid air cells and included paranasal si nuses are normally developed and aerated. 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 Reviewed, dictated and finalized at location A. IMPRESSION: Cerebral atherosclerosis and chronic small vessel ischemic changes of cerebral white matter Chronic lacunar infarcts of left periventricular area and left internal capsule Cerebral and cerebellar atrophy No acute intracranial finding
[2021-12-04 15:05] VITALS: BP 186/76; PULSE 74; RESP 14; TEMP 36.7; O2SAT 99
[2021-12-04 15:40] VITALS: PULSE 88; RESP 19; O2SAT 97
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
[2021-12-04] MEDS: TETANUS,DIPHTHERIA,AC PERTUSSIS ADULT (0.5 ML) BOOSTRIX IM (16:40)
[2021-12-04 17:09] VITALS: BP 176/89; PULSE 99; RESP 14; O2SAT 97
== END 2021-12-04 17:00 | disposition home or self-care (01) ==
PROVIDERS: Emergency Provider Emergency Medicine; PCP Internal Medicine
DX: S80.812A Abrasion, left lower leg, initial encounter (principal); Z23 Encounter for immunization; E11.22 Type 2 diabetes mellitus with diabetic chronic kidney disease; N18.9 Chronic kidney disease, unspecified; E78.5 Hyperlipidemia, unspecified; I25.2 Old myocardial infarction; H40.9 Unspecified glaucoma; Z86.73 Personal history of transient ischemic attack (TIA), and cerebral infarction without residual deficits; Z79.82 Long term (current) use of aspirin; Z79.4 Long term (current) use of insulin; Z95.5 Presence of coronary angioplasty implant and graft; Z87.891 Personal history of nicotine dependence; I67.2 Cerebral atherosclerosis; V49.40XA Driver injured in collision with unspecified motor vehicles in traffic accident, initial encounter
CPT/HCPCS: 70450; 90471; 90715; 99284

== ENCOUNTER 2022-03-09 08:42 | Outpatient (CLI) | payer MEDICARE, BC, SELFPAY ==
[2022-03-09 09:50] LABS: Anion Gap 11 mmol/L (8-16); Blood Urea Nitrogen 23 mg/dL (9-20); Calcium 8.8 mg/dL (8.4-10.2); Carbon Dioxide 28 mmol/L (22-30); Chloride 99 mmol/L (98-107); Estimated Glomerular Filt Rate 27; Glucose 223 mg/dL (65-110); Phosphorus 3.8 mg/dL (2.5-4.5); Potassium 4.5 mmol/L (3.4-5.0); Sodium 138 mmol/L (137-145)
[2022-03-09 10:46] LABS: Creatinine Urine 148.2 mg/dL; Total Protein Urine Random 150 mg/dL; Ur Ttl Prot Creatinine Ratio 1.01 mg/mg (0-0.20)
[2022-03-09 11:03] LABS: Vitamin D 25 Hydroxy 30.9 ng/mL
[2022-03-09 11:14] LABS: Hemoglobin A1C 9.6 % (<5.7)
[2022-03-09 12:14] LABS: MALB Creatinine Ratio 484.5 mg/g (0-30)
== END 2022-03-09 08:43 | disposition home or self-care (01) ==
PROVIDERS: PCP Internal Medicine; Visit Provider Internal Medicine Nephrology
DX: I12.9 Hypertensive chronic kidney disease with stage 1 through stage 4 chronic kidney disease, or unspecified chronic kidney disease (principal); N18.4 Chronic kidney disease, stage 4 (severe); R80.1 Persistent proteinuria, unspecified; I51.9 Heart disease, unspecified; I25.84 Coronary atherosclerosis due to calcified coronary lesion; I63.9 Cerebral infarction, unspecified; N40.0 Benign prostatic hyperplasia without lower urinary tract symptoms; D50.8 Other iron deficiency anemias; E11.22 Type 2 diabetes mellitus with diabetic chronic kidney disease; E78.00 Pure hypercholesterolemia, unspecified
CPT/HCPCS: 36415; 80069; 82043; 82306; 82570; 83036; 84156

== ENCOUNTER 2022-04-14 08:54 | Outpatient (CLI) | payer MEDICARE, BC, SELFPAY ==
[2022-04-14 09:39] LABS: Basophils Percent Auto 0.4 % (0.2-1.2); Eosinophils Absolute Auto 0.3 K/mm3 (0-0.3); Eosinophils Percent Auto 2.6 % (0-4.4); Hematocrit 39.8 % (42.0-52.0); Immature Granulocyte Absolute 0.06 K/mm3 (0.00-0.031); Immature Granulocyte Percent A 0.6 % (0-0.5); Lymphocytes Absolute Auto 1.05 K/mm3 (0.9-3.2); Lymphocytes Percent Auto 10.1 % (18.3-44.2); Mean Corpuscular HGB Conc 32.7 g/dl (32-36); Mean Corpuscular Hemoglobin 31.6 pg (26-34); Mean Corpuscular Volume 96.6 fl (80-100); Mean Platelet Volume 11.4 fl (7.4-10.4); Monocytes Absolute Auto 1.3 K/mm3 (0.1-0.6); Monocytes Percent Auto 12.6 % (2.6-8.5); Neutrophils Absolute Auto 7.7 K/mm3 (1.3-6.7); Neutrophils Percent Auto 73.7 % (45.5-73.1); Platelet Count Result 270 k/mm3 (150-375); Red Blood Count 4.12 M/mm3 (4.6-6.20); Red Cell Distribution Width 11.9 % (11.5-14.5); White Blood Count 10.4 K/mm3 (4.5-10.0)
[2022-04-14 09:51] LABS: Alanine Aminotransferase 20 U/L (6-50); Albumin Level 4.1 g/dL (3.5-5.1); Alkaline Phosphatase 131 U/L (38-126); Anion Gap 9 mmol/L (8-16); Aspartate Amino Transferase 31 U/L (17-59); Bilirubin,Total 0.9 mg/dL (0.2-1.3); Blood Urea Nitrogen 24 mg/dL (9-20); Calcium 8.9 mg/dL (8.4-10.2); Carbon Dioxide 28 mmol/L (22-30); Chloride 99 mmol/L (98-107); Estimated Glomerular Filt Rate 26; Glucose 188 mg/dL (65-110); Potassium 5.2 mmol/L (3.4-5.0); Sodium 136 mmol/L (137-145)
[2022-04-14 10:00] LABS: Iron 115 ug/dL (49-181)
[2022-04-14 10:09] LABS: Percent Iron Saturation 32 % (20-50)
[2022-04-14 11:03] LABS: Folic Acid 6.3 ng/mL (2.76->20)
== END 2022-04-14 08:55 | disposition home or self-care (01) ==
PROVIDERS: PCP Internal Medicine; Visit Provider Internal Medicine Hematology & Oncology
DX: D64.9 Anemia, unspecified (principal)
CPT/HCPCS: 36415; 80053; 82607; 82728; 82746; 83540; 83550; 85025

== ENCOUNTER 2022-05-26 11:08 | Outpatient (CLI) | payer MEDICARE, BC, SELFPAY ==
[2022-05-26 11:56] LABS: Basophils Percent Auto 0.2 % (0.2-1.2); Eosinophils Absolute Auto 0.4 K/mm3 (0-0.3); Eosinophils Percent Auto 2.8 % (0-4.4); Hematocrit 36.4 % (42.0-52.0); Hemoglobin 11.5 g/dL (14.0-18.0); Immature Granulocyte Absolute 0.14 K/mm3 (0.00-0.031); Immature Platelet Fraction Pct 18.7 % (0.9-11.2); Lymphocytes Absolute Auto 1.05 K/mm3 (0.9-3.2); Lymphocytes Percent Auto 7.2 % (18.3-44.2); Mean Corpuscular HGB Conc 31.6 g/dl (32-36); Mean Corpuscular Hemoglobin 30.5 pg (26-34); Mean Corpuscular Volume 96.6 fl (80-100); Mean Platelet Volume 13.3 fl (7.4-10.4); Monocytes Absolute Auto 1.9 K/mm3 (0.1-0.6); Monocytes Percent Auto 13.1 % (2.6-8.5); Neutrophils Percent Auto 75.7 % (45.5-73.1); Platelet Count Result 184 k/mm3 (150-375); Red Blood Count 3.77 M/mm3 (4.6-6.20); Red Cell Distribution Width 14.1 % (11.5-14.5); White Blood Count 14.5 K/mm3 (4.5-10.0)
[2022-05-26 12:18] LABS: Iron 38 ug/dL (49-181)
[2022-05-26 12:20] LABS: Alanine Aminotransferase 67 U/L (6-50); Alkaline Phosphatase 354 U/L (38-126); Anion Gap 9 mmol/L (8-16); Aspartate Amino Transferase 130 U/L (17-59); Bilirubin,Total 1.9 mg/dL (0.2-1.3); Blood Urea Nitrogen 39 mg/dL (9-20); Calcium 8.2 mg/dL (8.4-10.2); Carbon Dioxide 26 mmol/L (22-30); Chloride 100 mmol/L (98-107); Estimated Glomerular Filt Rate 21; Glucose 182 mg/dL (65-110); Potassium 4.5 mmol/L (3.4-5.0); Sodium 135 mmol/L (137-145)
[2022-05-26 12:28] LABS: Percent Iron Saturation 13 % (20-50)
== END 2022-05-26 11:09 | disposition home or self-care (01) ==
PROVIDERS: PCP Internal Medicine; Visit Provider Internal Medicine Hematology & Oncology
DX: N18.4 Chronic kidney disease, stage 4 (severe) (principal); D63.1 Anemia in chronic kidney disease; D50.9 Iron deficiency anemia, unspecified
CPT/HCPCS: 36415; 80053; 82728; 83540; 83550; 85025; 85055

== ENCOUNTER 2022-05-28 14:27 | Inpatient (IN) | payer MEDICARE, BC, SELFPAY ==
--- NOTE | ~2022-05-28 | XR_ITS ---
EXAMINATION: XR chest 2V DATE: 05/28/2022 14:49 INDICATION: Weakness. TECHNIQUE: Frontal and lateral views of the chest were obtained. COMPARISON: Chest single view 08/02/2020, CT abdomen and pelvis 02/13/2021 FINDINGS: There are reticular opacities in the lower lung zones. No pleural effusion or pneumothorax. The heart size is normal. IMPRESSION: 1. Stable chronic interstitial lung disease. Reviewed, dictated and finalized at location A. ON PINION ADJUSTER
--- NOTE | ~2022-05-28 | CT_ITS ---
EXAMINATION: CT brain wo con DATE: 05/30/2022 22:39 INDICATION: Right hemiparesis. Confusion. TECHNIQUE: Computed tomography (CT) of the head was performed without intravenous contrast. The mA wa s adjusted according to patient size. Iterative reconstruction technique was employed. The dose-lengt h product was 605.33 mGy-cm. COMPARISON: Head CT 12/04/2021 FINDINGS: There are scattered areas of low attenuation in the cerebral white matter. There is an old infarct involving the left basal ganglia, left internal capsule, and left frontoparietal aranda radia ta. There is an old infarct in left temporal occipital region. There is an old infarct in left cerebellum. There is no intracranial hemorrhage, acute infarction, or abnormal intracranial mass lesi on. The ventricles are normal in size. The paranasal sinuses are clear. There are likely changes of o cular lens replacement surgeries. The mastoid air cells are normal. IMPRESSION: 1. 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 2. Moderate nonspecific cerebral white matter disease, which likely represents chronic small vessel i schemic disease. Reviewed, dictated and finalized at location A. N DRILL OPERATOR IMPRESSION: 1. 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 2. Moderate nonspecific cerebral white matter disease, which likely represents chronic small vessel ischemic disease.
--- NOTE | ~2022-05-28 | XR_ITS ---
EXAMINATION: XR chest 1V portable DATE: 05/30/2022 13:02 INDICATION: Shortness of breath. TECHNIQUE: A single frontal view of the chest was obtained. COMPARISON: Chest 2 views 05/28/2022, CT abdomen and pelvis 02/13/2021 FINDINGS: There are airspace and interstitial opacities in the lower lung zones. No pleural effusion or pneumothorax. The heart size is normal. IMPRESSION: 1. Worsened airspace and interstitial opacities in the lower lung zones, consistent with chronic inte rstitial lung disease and superimposed atelectasis versus pneumonia. Reviewed, dictated and finalized at location A. ASSEMBLER IMPRESSION: 1. Worsened airspace and interstitial opacities in the lower lung zones, consis tent with chronic interstitial lung disease and superimposed atelectasis versus pneumonia.
--- NOTE | ~2022-05-28 | CT_ITS ---
EXAMINATION: CT chest abdomen pelvis wo con DATE: 05/31/2022 09:42 INDICATION: Abnormal liver function tests. Shortness of breath. TECHNIQUE: Computed tomography (CT) of the chest, abdomen, and pelvis was performed without intraveno us contrast. Automated exposure control and iterative reconstruction technique were employed. The dos e-length product was 681.00 mGy-cm. COMPARISON: CT abdomen and pelvis 02/13/2021 FINDINGS: CHEST CT: There are small pleural effusions. There are dependent airspace opacities in the lower lobes. There i s chronic peripheral septal thickening in the lungs. There is peripheral honeycombing in the upper lo bes. There is left atrial enlargement of the heart. There are coronary artery calcifications. No jamia cardial effusion. Calcified mediastinal lymph nodes are consistent with old granulomatous disease. Th ere is mild thoracic spondylosis. ABDOMEN/PELVIS CT: There are scattered areas of ill-defined hypodensity throughout the liver. The gallbladder is distend ed and contains gallstones. The spleen, pancreas, and adrenal glands are normal. There are cysts in t he kidneys measuring up to 5.2 cm on the left. The bladder is decompressed by a Zee catheter. There is a large volume of ascites. There is a left inguinal hernia containing ascites and a portion of th e bladder. There is a right inguinal hernia containing ascites. Stool distends the rectum. There are scattered diverticula in the colon. There is wall thickening of areas of the ascending, transverse, d escending, and sigmoid colon. The appendix is not visualized. There are no pathologically enlarged ly mph nodes. There is severe lumbar spondylosis. IMPRESSION: 1. Small pleural effusions. 2. Chronic interstitial lung disease in a pattern of usual interstitial pneumonia (UIP). 3. Dependent airspace opacities in the lower lobes, consistent with atelectasis versus pneumonia. 4. Diffuse liver disease, new from 02/13/2021, consistent with metastatic disease versus hepatitis. 5. Cholelithiasis. Gallbladder distention may be secondary to fasting or less likely acute cholecysti tis. 6. Large volume of ascites. Diagnostic paracentesis is recommended. 7. Left inguinal hernia containing ascites and a portion of the bladder. Right inguinal hernia contai eliza ascites. Reviewed, dictated and finalized at location A. L MACHINE SETTER IMPRESSION: 1. Small pleural effusions. 2. Chronic interstitial lung disease in a pattern of usual interstitial pneumon ia (UIP). 3. Dependent airspace opacities in the lower lobes, consistent with atelectasis versus pneumonia. 4. Diffuse liver disease, new from 02/13/2021, consistent with metastatic diseas e versus hepatitis. 5. Cholelithiasis. Gallbladder distention may be secondary to fasting or less l ikely acute cholecystitis. 6. Large volume of ascites. Diagnostic paracentesis is recommended. 7. Left inguinal hernia containing ascites and a portion of the bladder. Right inguinal hernia containing ascites.
--- NOTE | ~2022-05-28 | US_ITS ---
EXAMINATION: US renal BI DATE: 05/29/2022 08:18 INDICATION: Acute on chronic renal failure. TECHNIQUE: Multiple ultrasound grayscale images of the kidneys were obtained. COMPARISON: CT abdomen and pelvis 02/13/2021 FINDINGS: The right kidney measures 9.0 x 4.3 x 4.7 cm. The left kidney measures 9.4 x 4.6 x 5.0 cm. The kidney s demonstrate normal parenchymal echogenicity. There is a 5.3 cm cyst in left kidney. There is no hyd ronephrosis. The bladder is normal. There is a moderate volume of ascites. IMPRESSION: 1. Normal kidneys. No hydronephrosis. 2. Moderate volume of ascites. Reviewed, dictated and finalized at location A. NISTRATIVE FELLOW
--- NOTE | ~2022-05-28 | US_ITS ---
EXAMINATION: US paracentesis abd w/image DATE: 05/31/2022 13:57 INDICATION: Ascites. TECHNIQUE: The skin was prepped and draped in sterile fashion. 1% lidocaine was used for local anesth esia. Under ultrasound guidance, a 5 Fr catheter with trochar was advanced into the ascites in the formerly [facility] lower quadrant. Fluid was aspirated. The catheter was removed, and a dressing was applied. There were no immediate complications. FINDINGS: Ultrasound images demonstrate ascites and the catheter within the fluid. IMPRESSION: 1. Successful ultrasound-guided paracentesis yielding 2325 mL of clear, yellow fluid. Reviewed, dictated and finalized at location A. [facility]
--- NOTE | ~2022-05-28 | CT_ITS ---
EXAMINATION: CT brain wo con DATE: 05/31/2022 09:43 INDICATION: Altered mental status. TECHNIQUE: Computed tomography (CT) of the head was performed without intravenous contrast. The mA wa s adjusted according to patient size. Iterative reconstruction technique was employed. The dose-lengt h product was 681.00 mGy-cm. COMPARISON: Head CT 05/30/2022, 12/04/2021 FINDINGS: There are scattered areas of low attenuation in the cerebral white matter. There is an old infarct involving the left basal ganglia, left internal capsule, and left frontoparietal aranda radia ta. There is an old infarct in left temporal occipital region. There is an old infarct in left cerebe llum. There is no intracranial hemorrhage, acute infarction, or abnormal intracranial mass lesion. Th e ventricles are normal in size. The paranasal sinuses are clear. There are likely changes of ocular lens replacement surgeries. The mastoid air cells are normal. IMPRESSION: 1. 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 2. Moderate nonspecific cerebral white matter disease, which likely represents chronic small vessel i schemic disease. Reviewed, dictated and finalized at location A. F INSPECTOR IMPRESSION: 1. 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 2. Moderate nonspecific cerebral white matter disease, which likely represents chronic small vessel ischemic disease.
--- NOTE | ~2022-05-28 | US_ITS ---
EXAMINATION: US abdomen limited DATE: 05/29/2022 08:18 INDICATION: Abnormal liver function tests. TECHNIQUE: Multiple grayscale and Doppler ultrasound images of the abdomen were obtained. COMPARISON: CT abdomen and pelvis 02/13/2021 FINDINGS: The visualized portions of the head, body, and tail of the pancreas are normal. The liver i s normal without focal lesion. No definite liver surface nodularity. There is normal flow in main por derrick vein. The gallbladder is normal in size. No gallstones or gallbladder wall thickening. There was no sonographic De sign. The common duct is normal and measures 7 mm . Perihepatic ascites is note d. IMPRESSION: 1. Perihepatic ascites. Reviewed, dictated and finalized at location A. ORDER SORTING CLERK IMPRESSION: 1. Perihepatic ascites.
[2022-05-28 14:32] VITALS: BP 147/61; PULSE 63; RESP 18; TEMP 36.1; O2SAT 100
--- NOTE | 2022-05-28 14:33 | ECG_ITS ---
Measurements Intervals [place] Rate: 60 P: 10 HI: 162 QRS: 29 QRSD: 122 T: 78 QT: 460 QTc: 463 Interpretive Statements SINUS RHYTHM INFERIOR MYOCARDIAL INFARCTION , PROBABLY OLD [40+ ms Q WAVE AND/OR ST/T ABNORMALITY IN II/aVF] ABNORMAL ECG COMPARED TO ECG 08/02/2020 02:40:32 NO SIGNIFICANT CHANGES Electronically Signed On 05-28-2022 15:07:43 MANAGER TESTING by Ahsan Han M.D.
[2022-05-28 14:56] LABS: Basophils Percent Auto 0.2 % (0.2-1.2); Eosinophils Absolute Auto 0.3 K/mm3 (0-0.3); Eosinophils Percent Auto 1.9 % (0-4.4); Hematocrit 39.3 % (42.0-52.0); Hemoglobin 12.4 g/dL (14.0-18.0); Immature Granulocyte Absolute 0.11 K/mm3 (0.00-0.031); Immature Granulocyte Percent A 0.8 % (0-0.5); Immature Platelet Fraction Pct 17.4 % (0.9-11.2); Lymphocytes Absolute Auto 1.03 K/mm3 (0.9-3.2); Lymphocytes Percent Auto 7.4 % (18.3-44.2); Mean Corpuscular HGB Conc 31.6 g/dl (32-36); Mean Corpuscular Hemoglobin 30.5 pg (26-34); Mean Corpuscular Volume 96.6 fl (80-100); Mean Platelet Volume 13.4 fl (7.4-10.4); Monocytes Absolute Auto 1.7 K/mm3 (0.1-0.6); Monocytes Percent Auto 12.4 % (2.6-8.5); Neutrophils Absolute Auto 10.8 K/mm3 (1.3-6.7); Neutrophils Percent Auto 77.3 % (45.5-73.1); Platelet Count Result 196 k/mm3 (150-375); Red Blood Count 4.07 M/mm3 (4.6-6.20); Red Cell Distribution Width 14.2 % (11.5-14.5)
[2022-05-28 15:09] LABS: Albumin Level 3.2 g/dL (3.5-5.1); Alkaline Phosphatase 365 U/L (38-126); Anion Gap 12 mmol/L (8-16); Aspartate Amino Transferase 257 U/L (17-59); Blood Urea Nitrogen 51 mg/dL (9-20); Calcium 8.4 mg/dL (8.4-10.2); Carbon Dioxide 24 mmol/L (22-30); Chloride 98 mmol/L (98-107); Estimated CRCL calculation 12 ml/min; Estimated Glomerular Filt Rate 17; Glucose 232 mg/dL (65-110); Potassium 4.8 mmol/L (3.4-5.0); Sodium 134 mmol/L (137-145)
[2022-05-28 15:17] LABS: Alanine Aminotransferase 117 U/L (6-50)
[2022-05-28] MEDS: SODIUM CHLORIDE 0.9% IV 1,000 ML 150 ML IV CONT (16:22)
[2022-05-28 16:34] LABS: Influenza A QL RT-PCR Negative (Negative); Influenza B QL RT-PCR Negative (Negative); SARS-CoV-2 RNA PCR Negative
--- NOTE | 2022-05-28 16:35 | ED.WEAKNESS ---
HPI - Weakness General Chief complaint: Weakness Stated complaint: weak, low hemoglobin Time Seen by Provider: 05/28/22 15:39 Source: patient and family Mode of arrival: wheelchair Limitations: no limitations History of Present Illness HPI Narrative: 82-year-old with a history of CKD, iron deficiency anemia was brought in by family with complaints of marked weakness for past several weeks. However for the past few days he has been progressively getting weaker and he is declining. Patient son who is at the bedside states that have seen Dr. Cardozo yesterday in his office had outpatient lab work was told this morning that his iron levels are low. However his as well as son reports that he is unable to get out of the chair and is unable to ambulate. Patient presently denies having any headache, chest pain, shortness of breath or abdominal pain. also reports that his appetite has markedly reduced and he is not eating or drinking. MD Complaint: generalized weakness Onset (ago): week(s) (2) Duration: constant Location: generalized Migration: none Severity: moderate Relieving factors: none Exacerbating factors: none Associated symptoms: denies other symptoms Related Data Home Medications Medication Instructions Recorded Confirmed alogliptin 6.25 mg tablet 6.25 mg PO DAILY 08/02/20 08/02/20 aspirin 81 mg tablet 81 mg PO HS 08/02/20 08/02/20 bimatoprost 0.01 % eye drops 1 drp LEFT EYE HS 08/02/20 08/02/20 (Lumigan) carvedilol 12.5 mg tablet 12.5 mg PO BID 08/02/20 08/02/20 ergocalciferol (vitamin D2) 1,250 1,250 mcg PO WEEKLY 08/02/20 08/02/20 mcg (50,000 unit) capsule insulin glargine 100 unit/mL (3 15 - 20 unit subcut HS 08/02/20 08/02/20 mL) subcutaneous pen (Lantus Solostar U-100 Insulin) ranolazine 500 mg tablet,extended 500 mg PO BID 08/02/20 08/02/20 release,12 hr rivaroxaban 2.5 mg tablet (Xarelto) 2.5 mg PO BID 08/02/20 08/02/20 rosuvastatin 20 mg tablet 20 mg PO HS 08/02/20 08/02/20 semaglutide 0.25 mg or 0.5 mg (2 25 mg subcut WEEKLY 08/02/20 08/02/20 mg/1.5 mL) subcutaneous pen injector (Ozempic) timolol maleate 0.5 % eye drops 1 drp LEFT EYE BID 08/02/20 08/02/20 vitamin B complex (B 1 tablet PO DAILY 08/02/20 08/02/20 Complex-Vitamin B12 tablet) Allergies Allergy/AdvReac Type Severity Reaction Status Date / Time meperidine Allergy Mild Hallucinati Verified 05/28/22 15:47 ng Review of Systems Review of Systems: All systems reviewed & are unremarkable except as noted in HPI and below Constitutional: Constitutional: Reports no additional constitutional complaints Eyes: Eyes: Reports no additional eye complaints ENT: Reports system reviewed and no additional complaints, except as documented Cardiovascular: Cardiovascular: Reports no additional cardiovascular complaints Respiratory: Respiratory: Reports no additional respiratory complaints Gastrointestinal: Gastrointestinal: Reports no additional gastrointestinal complaints Genitourinary: Genitourinary: Reports no additional male genitourinary complaints Musculoskeletal: Musculoskeletal: Reports no additional musculoskeletal complaints [facility] Past Medical History Medical History (Updated 05/28/22 @ 16:53 by Rachid Lizama MD) Chronic kidney disease Diabetes Glaucoma Hyperlipidemia Myocardial infarction TIA (transient ischemic attack) Surgical History Surgical History History of colonoscopy History of percutaneous coronary intervention S/P lens implant Family History Family History Sibling Kidney disease Sibling Cancer unknown type Sibling Accident mva, Sibling Accident helicopter accident, Father Black lung disease Mother Pulmonary embolism Social History Social History Smoking packs per day
[2022-05-28 16:54] VITALS: BP 117/42; PULSE 63; RESP 16; O2SAT 100
[2022-05-28 17:18] VITALS: BP 140/48; PULSE 59; RESP 16; O2SAT 100
[2022-05-28 18:38] VITALS: BP 129/68; PULSE 63; RESP 16; O2SAT 100
--- NOTE | 2022-05-28 19:56 | PC.NURSE ---
attempted to call report at this time per александр nurse is still getting report from day shift and will call when she is ready
--- NOTE | 2022-05-28 20:03 | PM.IMHP ---
H&P: HPI History of Present Illness Date/Time: 05/28/22 20:03 Chief Complaint: Weakness Narrative: This is an 82-year-old male patient who has a history of chronic kidney disease and iron deficiency anemia. The patient was brought into the emergency room with complaints of marked weakness for the past several weeks. The family stated that the patient is supposed to have a iron infusion and it was not performed. According to the the patient gets very weak when it is time for him to have his iron infusion as she believes this is why he is so weak. The patient does see Dr. Cardozo. They were told this morning that his iron levels were low. Patient is too weak to even get out of his chair. The patient is also had decreased oral intake. His white count is 14.0. H&H is 12.4 and 39.3. His BUN is 51 and his creatinine 3.5 today. Last hemoglobin A1c was 9.6 on 03/09/2022. Liver enzymes are elevated. The patient is negative for influenza A/B and COVID. On 05/26/2022 his iron level was 38, ferritin 274, and iron saturation is low at 13%. Chest x-ray was read as stable chronic interstitial lung disease. The patient is being admitted to observation status on the date of service of 05/28/2022 Review of Systems Review of Systems: See HPI All systems reviewed & are unremarkable except as noted in HPI and below Constitutional: Constitutional: Reports as per HPI and Reports no additional constitutional complaints Eyes: Eyes: Reports as per HPI and Reports no additional eye complaints ENT: Reports system reviewed and no additional complaints, except as documented and Reports Normal hearing present Cardiovascular: Cardiovascular: Reports no additional cardiovascular complaints Respiratory: Respiratory: Reports no additional respiratory complaints and Reports no additional respiratory complaints Gastrointestinal: Gastrointestinal: Reports as per HPI and Reports no additional gastrointestinal complaints Musculoskeletal: Musculoskeletal: Reports no additional musculoskeletal complaints Integumentary/Breasts: Skin/Breast: Reports system reviewed and no additional complaints, except as docu and Reports as per HPI Neurologic: Reports system reviewed and no additional complaints, except as documented, Reports as per HPI and Reports Normal hearing present Psychiatric: Psychiatric: Reports no additional psychiatric complaints and Reports as per HPI Endocrine: Endocrine: Reports no additional endocrine complaints Hematologic/Lymphatic: Hematologic/Lymphatic: Reports no additional hematologic/lymphatic complaints Allergic/Immunologic: Allergic/Immunologic: Reports no additional allergic/immunologic complaints PMFSH Past Medical History Medical History (Updated 05/28/22 @ 23:42 by Alma Palafox NP) CAD (coronary artery disease) Chronic kidney disease Diabetes Glaucoma HTN (hypertension) with goal to be determined Hyperlipidemia Myocardial infarction PFO (patent foramen ovale) TIA (transient ischemic attack) Surgical History Surgical History (Updated 05/28/22 @ 23:24 by Alma Palafox NP) H/O heart artery stent 6 History of colonoscopy History of percutaneous coronary intervention History of tonsillectomy and adenoidectomy S/P lens implant Family History Family History Sibling Kidney disease Sibling Cancer unknown type Sibling Accident mva, Sibling Accident helicopter accident, Father Black lung disease Mother Pulmonary embolism Social History Social History (Updated 05/28/22 @ 23:25 by Alma Palafox NP) Social History: The patient lives with his of 60 some years. They have 2 children a boy and a girl. 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 The patient is a former smoker. The patient used to drink a couple beers a week. His a
[2022-05-28 20:28] VITALS: BP 156/63; PULSE 67; RESP 16; TEMP 36.2; O2SAT 100
[2022-05-28] MEDS: IRON SUCROSE COMPLEX 100 MG in SODIUM CHLORIDE 0.9% IV 50 ML 220 MG IVPB (21:57)
[2022-05-28] MEDS: SODIUM CHLORIDE 0.9% IV 1,000 ML 125 ML IV CONT (21:58)
[2022-05-29] VITALS (7 sets, daily range): BP systolic 116–154; BP diastolic 51–76; PULSE 55–109; RESP 14–18; TEMP 35.5–36.6; O2SAT 97–100
[2022-05-29] MEDS: ASPIRIN 81 MG ENTERIC TABLET PO ×2 (00:14→20:18)
[2022-05-29] MEDS: RANOLAZINE 500 MG TAB.ER.12H PO ×2 (00:15→20:17)
[2022-05-29] MEDS: carvediloL 12.5 MG TABLET PO ×3 (00:15→20:17)
[2022-05-29] MEDS: ROSUVASTATIN 10 MG TABLET 20 MG PO ×2 (00:15→20:17)
[2022-05-29] MEDS: TIMOLOL MALEATE 0.5% OP SOLN 5 ML BOTTLE 1 DROP LEFT EYE ×3 (00:16→16:58)
[2022-05-29] MEDS: LATANOPROST 0.005% OP SOLN 2.5 ML BTL 1 DROP EACH EYE ×2 (00:16→20:18)
[2022-05-29] MEDS: SODIUM CHLORIDE 0.9% IV 1,000 ML 125 ML IV CONT ×3 (00:17→15:13)
[2022-05-29] MEDS: INSULIN GLARGINE (*BKC) 100 UNITS/ML SUB-Q ×2 (00:23→20:31)
[2022-05-29 00:33] LABS: Glucose Point of Care 124 mg/dl (65-105)
[2022-05-29 06:27] LABS: Basophils Percent Auto 0.2 % (0.2-1.2); Eosinophils Absolute Auto 0.5 K/mm3 (0-0.3); Eosinophils Percent Auto 3.5 % (0-4.4); Hematocrit 31.3 % (42.0-52.0); Hemoglobin 10.3 g/dL (14.0-18.0); Immature Granulocyte Absolute 0.11 K/mm3 (0.00-0.031); Immature Granulocyte Percent A 0.9 % (0-0.5); Immature Platelet Fraction Pct 14.5 % (0.9-11.2); Lymphocytes Absolute Auto 0.94 K/mm3 (0.9-3.2); Lymphocytes Percent Auto 7.3 % (18.3-44.2); Mean Corpuscular HGB Conc 32.9 g/dl (32-36); Mean Corpuscular Hemoglobin 30.5 pg (26-34); Mean Corpuscular Volume 92.6 fl (80-100); Mean Platelet Volume 13.4 fl (7.4-10.4); Monocytes Percent Auto 15.2 % (2.6-8.5); Neutrophils Absolute Auto 9.4 K/mm3 (1.3-6.7); Neutrophils Percent Auto 72.9 % (45.5-73.1); Platelet Count Result 136 k/mm3 (150-375); Red Blood Count 3.38 M/mm3 (4.6-6.20); Red Cell Distribution Width 14.1 % (11.5-14.5); White Blood Count 12.9 K/mm3 (4.5-10.0)
[2022-05-29 06:47] LABS: Anion Gap 1 mmol/L (8-16); Blood Urea Nitrogen 48 mg/dL (9-20); Calcium 7.7 mg/dL (8.4-10.2); Carbon Dioxide 28 mmol/L (22-30); Chloride 103 mmol/L (98-107); Estimated CRCL calculation 13 ml/min; Estimated Glomerular Filt Rate 19; Glucose 64 mg/dL (65-110); Sodium 132 mmol/L (137-145)
[2022-05-29 07:52] LABS: Hepatitis B Surface Antigen Negative (Negative)
[2022-05-29 07:58] LABS: HAV RESULT Negative (Negative); Hepatitis B Core IgM Result Negative (Negative)
[2022-05-29 08:10] LABS: Hepatitis C Virus Antibody Negative (Negative)
[2022-05-29 08:37] LABS: Glucose Point of Care 51 mg/dl (65-105)
[2022-05-29] MEDS: VITAMIN B COMPLEX CAPSULE 1 CAP PO (08:39)
[2022-05-29] MEDS: DEXTROSE 50% 25 GM/50 ML SYRINGE IV PUSH (08:43)
[2022-05-29 09:11] LABS: Glucose Point of Care 129 mg/dl (65-105)
[2022-05-29 09:11] LABS: Glucose Point of Care 65 mg/dl (65-105)
[2022-05-29 11:59] LABS: Glucose Point of Care 175 mg/dl (65-105)
[2022-05-29 12:05] LABS: Add Urine Microscopic? YES; Appearance Urine Slightly Cloudy (Clear); Bilirubin Urine 1+ (Negative); Blood Urine Trace-Intact (Negative); Color Urine Straw (Yellow); Glucose Urine UA Negative (Negative); Ketones Urine Negative (Negative); Leukocyte Esterase Ur Negative LEU/UL (Negative); Nitrate Urine Positive (Negative); Protein Urine 1+ mg/dL (Negative); Specific Grav Ur >= 1.030 (1.001-1.035); pH Urine 5.5 (5.0-9.0)
[2022-05-29 12:09] LABS: Mucus Urine Rare /lpf; Squamous Epithelial Cell Urine Occasional /hpf (Few)
--- NOTE | 2022-05-29 12:43 | PM.CNNEP ---
Assessment and Plan Assessment and plan (1) PHILIPP (acute kidney injury): Code(s): N17.9 - Acute kidney failure, unspecified Status: Acute Assessment and Plan: PHILIPP or is there an element of disease progression(?) check urine electrolytes, urine eosinophils and CPK check renal ultrasound continue trial of IVFs follow trend of repeat labs and UOP (2) Chronic kidney disease, stage IV (severe): Code(s): N18.4 - Chronic kidney disease, stage 4 (severe) Status: Chronic Assessment and Plan: baseline creatinine (from [facility] records) runs ~ 2.1 - 2.6mg/dl was up to 2.9mg/dl by recent testing (05/26/22) presumably due to HTN, DM, vascular disease, and age-related change (3) Weakness: Code(s): R53.1 - Weakness Status: Acute Assessment and Plan: related to PHILIPP versus anemia versus something else(?) PT/OT as tolerated continue supportive therapy (4) Anemia: Code(s): D64.9 - Anemia, unspecified Status: Chronic Assessment and Plan: chronic issues follows with Dr. Cardozo on IV as well as oral iron supplementation follow trend of H/H (5) Hypertension: Code(s): I10 - Essential (primary) hypertension Status: Chronic Assessment and Plan: reasonable control at this time follow trend of hemodynamics (6) Diabetes: Code(s): E11.9 - Type 2 diabetes mellitus without complications Status: Chronic Assessment and Plan: follow accuchecks glycemic control Will continue to follow. History of Present Illness Reason for Consult Consult date: 05/29/22 Reason for consult: acute renal failure (on chronic kidney disease) Chief Complaint Chief complaint: Weakness/Dehydration/CKD History of Present Illness Narrative: The patient is an 82-year-old male with a past medical history as outlined below who presented to [facility] Emergency room with complaints of generalized weakness. Apparently, over the past several weeks, the patient's family has noted into be markedly weaker than his baseline. He does have a known history of iron deficiency anemia in association with chronic kidney disease and gets outpatient IV iron infusions for treatment of this. His last iron infusion apparently was not done for some reason. His seems to think that the lack of this on iron infusion is partly a reason for his generalized weakness as he has had this problem in the past. Apparently his weakness has gotten to the point where he is unable to ambulate or even get out of a chair. Other associated symptoms include poor oral intake as well. Given all these findings, he was brought to the ER for further assessment. Workup and evaluation emergency room demonstrated the patient to be hemodynamically stable and routine blood test demonstrated a mildly elevated white blood cell count, fairly stable hemoglobin/ hematocrit, but he did have what appeared to be acute kidney injury on top of his baseline kidney disease with a BUN of 51 and a creatinine of 3.5. Influenza a/B as well as COVID-19 testing was negative. Iron studies done recently showed clear evidence of iron deficiency anemia and his chest x-ray demonstrated stable chronic interstitial lung disease. Given the patient's age, complex medical history, and constellation of symptoms that led to his presentation to the ER as well as laboratory findings, he was admitted the hospital for further evaluation and therapy. Renal consultation was requested due to his acute kidney injury on top of his baseline kidney disease. The patient normally follows with Dr. Derrell Cheema for management of his chronic kidney disease. I am not entirely sure what his baseline creatinine normally runs but from review his records here at [facility], it would seem to fluctuate anywhere from 2.1-2.6 mg/dL and is presumably secondary to his history of hypertension, vascular disease, diabetes
--- NOTE | 2022-05-29 12:58 | PM.IMPN ---
Progress Note: A&P Assessment and Plan (1) Acute on chronic renal failure: Code(s): N17.9 - Acute kidney failure, unspecified; N18.9 - Chronic kidney disease, unspecified Status: Acute Assessment and Plan: -most likely pre renal azotemia. -the patient has had a poor oral intake. 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 His typical creatinine is 2.4-2.9. -consult Nephrology (2) HTN (hypertension) with goal to be determined: Code(s): I10 - Essential (primary) hypertension Status: Acute Assessment and Plan: -continue with Coreg -current blood pressure 156/63. (3) Anemia: Code(s): D64.9 - Anemia, unspecified Status: Acute Assessment and Plan: -the patient has iron deficiency anemia. His iron levels are low today. I did order him an iron infusion however it may not be enough. The patient takes sees Dr. Cardozo. -I did consult Dr. cardozo -he is also on an iron supplement orally (4) Hyperlipidemia: Code(s): E78.5 - Hyperlipidemia, unspecified Status: Acute Assessment and Plan: -continue with rosuvastatin (5) CAD (coronary artery disease): Code(s): I25.10 - Atherosclerotic heart disease of [place] coronary artery without angina pectoris Status: Acute Assessment and Plan: -the patient has a history of 6 coronary stents -he is on Coreg, rosuvastatin, ranolazine an aspirin (6) Diabetes: Code(s): E11.9 - Type 2 diabetes mellitus without complications Status: Acute Assessment and Plan: -continue with Lantus -sliding scale insulin with Accu-Cheks AC and HS and hypoglycemic protocol. -last A1c was noted to be 9.6 on 03/09/2022 (7) Glaucoma: Code(s): H40.9 - Unspecified glaucoma Status: Acute Assessment and Plan: -continue with home eye drops Plan -history of CVA he the patient is on aspirin. Subjective Date/time seen: 05/29/22 12:58 Patient feels pretty weak. Exam Const: General: cooperative, healthy appearing, comfortable, no acute distress, well developed, alert, awake, Physically active, average body habitus, well nourished and thin Nutritional Appearance: average body habitus, well nourished and thin Orientation/consciousness: oriented to person, oriented to place, oriented to time and patient oriented x3 Limitations: no limitations HENMT: Head: normal to inspection, No palpable skull fracture present, normocephalic, atraumatic and abrasion Ears: hearing grossly normal bilaterally, external ears normal and TM's normal bilaterally Face/Nose/Sinus: Normal external nose present, Normal nares present and No nasal polyps present Mouth: Yes Normal oral and palatal mucosa present Throat: posterior oropharynx normal Eyes: General: appearance normal, both eyes and all related structures Alignment and Position: alignment normal Periorbital: periorbital findings normal Eyelids: eyelids normal Conjunctivae: conjunctivae normal Sclera: sclerae normal Cornea: corneas normal Pupils: Equal, round and reactive pupils present and Pupil accommodation reflex normal EOM: EOMs intact bilaterally Neck: Neck: normal visual inspection, full ROM, no lymphadenopathy, trachea midline and supple Thyroid: thyroid normal Carotids: normal carotid upstroke Lymphatic: no lymphadenopathy noted Chest: Chest palpation & inspection: normal inspection of the chest Resp: Effort & Inspection: normal respiratory effort Auscultation: clear to auscultation bilaterally Percussion: percussion normal Cardio: Palpation: normal PMI Rate: regular rate Rhythm: regular rhythm Heart sounds: S1 normal heart sound present and S2 normal heart sound present Peripheral pulses: Peripheral pulses 2+ throughout GI: Inspection: normal to inspection Auscultation: normal
--- NOTE | 2022-05-29 15:08 | PC.NURSE ---
received cyanocobalamin 1000mcg/ml from pharmacy via tube at 1508
[2022-05-29] MEDS: FOLIC ACID 1 MG/0.2 ML INJ IV PUSH (15:13)
[2022-05-29] MEDS: CYANOCOBALAMIN INJ 1,000 MCG/ML VIAL 1000 MCG IM (15:13)
[2022-05-29] MEDS: INSULIN ASPART (*BKC) 100 UNITS/ML SUB-Q (16:58)
[2022-05-29 16:59] LABS: Glucose Point of Care 279 mg/dl (65-105)
--- NOTE | 2022-05-29 18:45 | PDONCCONNOTE ---
Recommendations monitor CBC and serum Iron Impression multifactoral anemia with renal dysfunction and some element of Iron deficiency Agree with Iron infusion and B 12 and correct renal function with hydration PMFSH - Date/Time Seen 05/29/22 18:45 - History of Present Illness Pt with mild Fe deficiency multifactorial anemia with CKD and acute worsening of his renal function c/o weakness poor oral intake has benefited from Iron infusions in the past Not clear if acute process in most likely explanation of the change in his functional process - Medical History Medical History (Last Updated 05/28/22 @ 23:42 by Alma aPlafox NP) CAD (coronary artery disease) Chronic kidney disease Diabetes Glaucoma HTN (hypertension) with goal to be determined Hyperlipidemia Myocardial infarction PFO (patent foramen ovale) TIA (transient ischemic attack) - Surgical History Surgical History (Last Updated 05/28/22 @ 23:24 by Alma Palafox NP) H/O heart artery stent 6 History of colonoscopy History of percutaneous coronary intervention History of tonsillectomy and adenoidectomy S/P lens implant - Family History Family History (Last Reviewed 05/29/22 @ 05:31 by Candy Cates RN) Sibling Kidney disease Sibling Cancer unknown type Sibling Accident mva, Sibling Accident helicopter accident, Father Black lung disease Mother Pulmonary embolism - Social History Social History (Last Updated 05/28/22 @ 23:25 by Alma Palafox NP) Gender Identity: Gender identity (if verbalized by the patient): Male Alcohol Use: Alcohol intake: never Drinks per week: 0 Substance Use: Substance use: never Others: Spiritual care concerns: No Smoking Status: Smoking status: Former smoker Tobacco type: cigarettes Smoking Pack-years: Smoking packs per day: 2 Smoking cigarettes per day: 40.0 Years smoked: 5 Smoking pack-years: 10.00 Social Determinants of Health: Has the Lack of Transportation Kept You From Medical Appointments or From Getting Medications?: No Within the Past 12 Months, Were You Worried Whether Your Food Would Run Out Before You Got Money to Buy More?: Never True What is Your Housing Situation Today?: I Have Housing Are You Worried That in the Next 2 Months, You May Not Have Your Own Housing to Live In?: No Do You Have Trouble Paying Your Heating Or Electricity Bill?: No Do You Have Trouble Paying For Medicines?: No Are You Currently Unemployed and Looking for Work?: No Highest Level of Education Completed: High School Diploma/GED Do You Have Trouble With Childcare or the Care of a Family Member?: No - Medications Active Medications Generic Name Dose Route Start Last Admin Trade Name Freq PRN Reason Stop Dose Admin Acetaminophen 650 mg 05/28/22 16:55 Acetaminophen 325 Mg Tablet PO Q4H PRN Mild Pain (1-3) or Fever Aspirin 81 mg 05/28/22 21:00 05/29/22 00:14 Aspirin 81 Mg Enteric Tablet PO 81 mg HS JAJA Administration Carvedilol 12.5 mg 05/28/22 23:15 05/29/22 08:37 Carvedilol 12.5 Mg Tablet PO 12.5 mg Q12HR JAJA Administration Dextrose 12.5 gm 05/28/22 23:15 05/29/22 08:43 Dextrose 50% 25 Gm/50 Ml Syringe IV PUSH 12.5 gm PRN PRN Administration Hypoglycemia Protocol Ergocalciferol 50,000 units 05/30/22 09:00 Ergocalciferol 50,000 Units Capsule PO Jaimes JAJA Glucagon 1 mg 05/28/22 23:15 Glucagon For Inj 1 Mg Vial IM PRN PRN Hypoglycemia Protocol Glucose 15 gm 05/28/22 23:15 Glucose Oral Gel 15 Gm Of Glucse In 37.5 Gm Tube PO PRN PRN Hypoglycemia Protocol Sodium Chloride 1,000 mls @ 125 mls/hr 05/28/22 16:55 05/29/22 15:13 Normal Saline Iv IV CONT 125 mls/hr .Q8H JAJA Administration Dextrose 1,000 mls @ 100 mls/hr 1
[2022-05-29] MEDS: SODIUM CHLORIDE 0.9% IV 1,000 ML 999 ML IV CONT (19:37)
--- NOTE | 2022-05-29 19:39 | PC.NURSE ---
Andres SPRINKLING TRUCK DRIVER assess pt at bedside L side bladder fluid filled mass palpated. Zee aspirated yellow urine via andres SPRINKLING TRUCK DRIVER. NS bolus 1000ml infusing, awaiting flomax from pharmacy to be delivered. Iron and TIBC labs orders for 500 am tomorrow 05/30/22. continue to monitor.
[2022-05-29] MEDS: TAMSULOSIN HCL 0.4 MG CAPSULE PO (20:18)
[2022-05-29 20:46] LABS: Glucose Point of Care 250 mg/dl (65-105)
[2022-05-30] VITALS (11 sets, daily range): BP systolic 84–117; BP diastolic 31–68; PULSE 42–66; RESP 14–36; TEMP 35.7–36.6; O2SAT 97–100
[2022-05-30] MEDS: SODIUM CHLORIDE 0.9% IV 1,000 ML 125 ML IV CONT ×2 (00:01→20:45)
--- NOTE | 2022-05-30 02:25 | PC.NURSE ---
informed MD Mendosa about hematuria that started this shift, pt pulled on Zee, irrigated clear bloody red urine, no clots present, reported only 150ml out so far this shift about 1000ml bolus NS given. Order for urology and nephrology consults for am in place. NS infusing continued at 125ml/hr.
--- NOTE | 2022-05-30 05:44 | PC.NURSE ---
total urine output this shift 200ml, hematuria clearing up, urine yellow with pink bloody tint. PO intake 300ml with encouragement.
--- NOTE | 2022-05-30 06:55 | PC.NURSE ---
called MD Cowan for consult [phone]
--- NOTE | 2022-05-30 07:02 | PC.NURSE ---
consult called for urologist Jesika [phone]
[2022-05-30 07:44] LABS: Basophils Percent Auto 0.2 % (0.2-1.2); Eosinophils Absolute Auto 0.4 K/mm3 (0-0.3); Eosinophils Percent Auto 2.5 % (0-4.4); Hemoglobin 10.4 g/dL (14.0-18.0); Immature Granulocyte Absolute 0.11 K/mm3 (0.00-0.031); Immature Granulocyte Percent A 0.8 % (0-0.5); Immature Platelet Fraction Pct 16.2 % (0.9-11.2); Lymphocytes Absolute Auto 0.71 K/mm3 (0.9-3.2); Mean Corpuscular HGB Conc 32.5 g/dl (32-36); Mean Corpuscular Volume 95.2 fl (80-100); Mean Platelet Volume 13.7 fl (7.4-10.4); Monocytes Absolute Auto 1.8 K/mm3 (0.1-0.6); Neutrophils Absolute Auto 11.1 K/mm3 (1.3-6.7); Neutrophils Percent Auto 78.5 % (45.5-73.1); Platelet Count Result 124 k/mm3 (150-375); Red Blood Count 3.36 M/mm3 (4.6-6.20); Red Cell Distribution Width 14.4 % (11.5-14.5); White Blood Count 14.2 K/mm3 (4.5-10.0)
[2022-05-30 07:57] LABS: Albumin Level 2.4 g/dL (3.5-5.1); Anion Gap 4 mmol/L (8-16); Blood Urea Nitrogen 46 mg/dL (9-20); Calcium 7.3 mg/dL (8.4-10.2); Carbon Dioxide 22 mmol/L (22-30); Chloride 107 mmol/L (98-107); Creatine Kinase 259 U/L (55-170); Estimated CRCL calculation 15 ml/min; Estimated Glomerular Filt Rate 22; Glucose 93 mg/dL (65-110); Phosphorus 3.2 mg/dL (2.5-4.5); Potassium 4.4 mmol/L (3.4-5.0); Sodium 133 mmol/L (137-145)
[2022-05-30 07:58] LABS: Glucose Point of Care 88 mg/dl (65-105)
[2022-05-30 08:01] LABS: Iron 31 ug/dL (49-181)
[2022-05-30 08:10] LABS: Percent Iron Saturation 13 % (20-50)
[2022-05-30] MEDS: carvediloL 12.5 MG TABLET PO (09:02)
[2022-05-30] MEDS: VITAMIN B COMPLEX CAPSULE 1 CAP PO (09:03)
[2022-05-30] MEDS: ERGOCALCIFEROL 50,000 UNITS CAPSULE 50000 UNITS PO (09:03)
[2022-05-30] MEDS: TAMSULOSIN HCL 0.4 MG CAPSULE PO (09:03)
[2022-05-30] MEDS: RANOLAZINE 500 MG TAB.ER.12H PO ×2 (09:03→20:44)
[2022-05-30] MEDS: TIMOLOL MALEATE 0.5% OP SOLN 5 ML BOTTLE 1 DROP LEFT EYE ×2 (09:04→18:14)
--- NOTE | 2022-05-30 09:09 | WPDURCON ---
Assessment and Plan Assessment and plan (1) Chronic kidney disease, stage IV (severe): Code(s): N18.4 - Chronic kidney disease, stage 4 (severe) Status: Chronic Assessment and Plan: - Continue hair catheter in place for Is and Os; I irrigated at bedside, and it is flushing well with no signs of obstruction based on normal renal/bladder US and based on exam. - No further acute urologic intervention is required. Defer treatment recommendations to primary team and nephrology. - Urine culture pending; would consider antibiotic treatment particularly if signs of infection on culture. Urology Consult Note HPI Date Seen: 05/30/22 Requesting Physician: Ahsan Olsen MD Primary Care Provider: Ahsan Leon, Consult Narrative Narrative: Brando Myrick is a 82 year old male with hx of CKD and iron deficiency anemia admitted for weakness. He was found to have a Cr of above 3 (baseline in the mid 2's), and appears to be prerenal in nature. However, with work up patient noted to have decreased urine output and therefore a renal ultrasound was performed which was unremarkable with no hydronephrosis. A catheter was placed which is draining dark yellow urine without hematuria and irrigates easily per nursing staff. UA obtained which was nitrite positive but leuk esterace negative, also showed dehydration with high specific gravity and protein. Nephrology consulted. Urology was consulted to ensure no other potential intervention required. [facility] Past Medical History Medical History (Updated 05/30/22 @ 08:01 by Tomy Cowan MD) CAD (coronary artery disease) Chronic kidney disease Diabetes Glaucoma HTN (hypertension) with goal to be determined Hyperlipidemia Myocardial infarction PFO (patent foramen ovale) TIA (transient ischemic attack) Surgical History Surgical History (Updated 05/28/22 @ 23:24 by Alma Palafox NP) H/O heart artery stent 6 History of colonoscopy History of percutaneous coronary intervention History of tonsillectomy and adenoidectomy S/P lens implant Family History Family History Sibling Kidney disease Sibling Cancer unknown type Sibling Accident mva, Sibling Accident helicopter accident, Father Black lung disease Mother Pulmonary embolism Social History Social History (Updated 05/28/22 @ 23:25 by Alma Palafox NP) Social History: The patient lives with his of 60 some years. They have 2 children a boy and a girl. 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 The patient is a former smoker. The patient used to drink a couple beers a week. 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 Code status full code Smoking packs per day: 2 Smoking cigarettes per day: 40.0 Years smoked: 5 Smoking pack-years: 10.00 Smoking status: Former smoker Tobacco type: cigarettes Alcohol intake: never Drinks per week: 0 Substance use: never Lack of Transportation: No Lack of Food: Never True Current Housing: I Have Housing Concerned About Future Housing: No Difficulty Paying Gas/Electric Bills: No Difficulty Paying for Meds: No Currently Unemployed: No Education: High School Diploma/GED Difficulty w/ Childcare or Family Care: No Gender identity (if verbalized by the patient): Male Spiritual care concerns: No Meds Home Medications and Allergies Home Medications Medication Instructions Recorded Confirmed Type aspirin 81 mg tablet 81 mg PO HS 08/02/20 05/28/22 History bimatoprost 0.01 % eye drops 1 drp LEFT EYE HS 08/02/20 05/28/22 History (Sandi) carvedilol 12.5 mg tablet 12.5 mg PO BID 08/02/20 05/28/22 History ergocalciferol (vitamin D2) 1,250 1,250 mcg PO WEEKLY 08/02/20 05/28/22 History mcg (50,000 unit) capsule insulin g
[2022-05-30 09:41] LABS: Creatinine Urine 91.2 mg/dL; Total Protein Urine Random 76 mg/dL; Ur Ttl Prot Creatinine Ratio 0.83 mg/mg (0-0.20); Urea Random Urine 361 MG/DL
[2022-05-30 09:42] LABS: Sodium Urine Random 9 meq/L
[2022-05-30 09:43] LABS: Eosinophil Urine None Seen % (None Seen)
[2022-05-30] MEDS: SODIUM CHLORIDE 0.9% IV 1,000 ML 75 ML IV CONT ×2 (11:24→16:19)
[2022-05-30 11:42] LABS: Glucose Point of Care 129 mg/dl (65-105)
--- NOTE | 2022-05-30 12:28 | PM.IMPN ---
Progress Note: A&P Assessment and Plan (1) Lethargy: Code(s): R53.83 - Other fatigue Status: Acute Assessment and Plan: Unknown etiology, leukocytosis noted, check blood cultures, chest x-ray, urinalysis, start broad-spectrum antibiotics, follow-up labs (2) Acute on chronic renal failure: Code(s): N17.9 - Acute kidney failure, unspecified; N18.9 - Chronic kidney disease, unspecified Status: Acute Assessment and Plan: Appreciate nephrology consultation, continue IV fluids (3) HTN (hypertension) with goal to be determined: Code(s): I10 - Essential (primary) hypertension Status: Acute Assessment and Plan: Stable, continue home meds, hold nephrotoxic agents (4) Anemia: Code(s): D64.9 - Anemia, unspecified Status: Chronic Assessment and Plan: Appreciate oncology consultation, continue iron supplements, follow-up outpatient (5) Hyperlipidemia: Code(s): E78.5 - Hyperlipidemia, unspecified Status: Acute Assessment and Plan: Continue statin (6) CAD (coronary artery disease): Code(s): I25.10 - Atherosclerotic heart disease of [place] coronary artery without angina pectoris Status: Acute Assessment and Plan: history of 6 coronary stents, continue home meds of Coreg, rosuvastatin, ranolazine and aspirin (7) Diabetes: Code(s): E11.9 - Type 2 diabetes mellitus without complications Status: Chronic Assessment and Plan: -continue with Lantus -sliding scale insulin with Accu-Cheks AC and HS and hypoglycemic protocol. -last A1c was noted to be 9.6 on 03/09/2022 (8) Glaucoma: Code(s): H40.9 - Unspecified glaucoma Status: Acute Assessment and Plan: -continue with home eye drops Plan -history of CVA, cont aspirin. DVT prophylaxis with SCDs GI prophylaxis not indicated Code status full code Subjective Date/time seen: 05/30/22 12:28 Interval history: No overnight events noted. No chest pain or shortness of breath. No nausea, vomiting or diarrhea. No fevers or chills. Appears much more lethargic today. Review of Systems Review of Systems: 12 point review of systems was assessed and was negative except as noted in the HPI Exam Narrative: General: Lethargic, arousable HEENT: Atraumatic, normocephalic, mucous membranes moist CV: Regular rate and rhythm, S1, S2 Lungs: Clear to auscultation bilaterally, no rales or crackles noted, no wheezes, good air entry Abdomen: Soft, nontender, nondistended Extremities: Normal to inspection Skin: No rashes noted, no lesions or wounds seen Objective Data Vital Signs Vital Signs: Vital Signs - 24 hr 05/29/22 14:00 05/29/22 19:45 05/29/22 20:17 Temperature 97.8 F Pulse Rate 109 H 96 Respiratory Rate 16 Blood Pressure 119/76 Pulse Oximetry 97 97 Oxygen Delivery Room Air 05/29/22 21:20 05/30/22 03:57 05/30/22 09:02 Temperature 96.9 F L 97.8 F Pulse Rate 58 L 54 L 57 L Respiratory Rate 18 22 H Blood Pressure 116/51 L 117/60 Pulse Oximetry 100 97 Oxygen Delivery 05/30/22 09:47 05/30/22 09:37 05/30/22 08:00 Temperature Pulse Rate Respiratory Rate Blood Pressure Pulse Oximetry Oxygen Delivery Room Air Room Air Room Air 05/30/22 11:47 Temperature 96.2 F L Pulse Rate 60 Respiratory Rate 36 H Blood Pressure 93/68 L Pulse Oximetry 99 Oxygen Delivery Intake/Output Intake/Output: Intake & Output 05/27/22 05/28/22 05/29/22 05/30/22 23:59 23:59 23:59 23:59 Intake Total 55 3660 3540 Output Total 605 200 Balance 55 3055 3340 Meds/Results Medications: Active Medications Generic Name Dose Route Start Last Admin Trade Name Flacoq PRN Reason Stop Dose Admin Acetaminophen 650 mg 05/28/22 16:55 Acetaminophen 325 Mg Tablet PO Q4H PRN Mild Pain (1-3) or Fever Aspirin 81 mg 05/28/22 21:00 05/29/22 20:18 Aspirin 81 Mg Enteric Tablet PO
[2022-05-30] MEDS: MORPHINE SULFATE (*CRX) 2 MG/ML INJ IV PUSH (12:30)
--- NOTE | 2022-05-30 12:39 | PM.PNNEP ---
Progress Note: A&P Assessment and Plan (1) PHILIPP (acute kidney injury): Code(s): N17.9 - Acute kidney failure, unspecified Status: Acute Assessment and Plan: creatinine a bit better today evaluation to date: renal ultrasound okay urine electrolyts with prerenal azotemia CPK okay UA with possible suggestion of UTI mild proteinuria continue trial of IVFs follow trend of repeat labs and UOP (2) Chronic kidney disease, stage IV (severe): Code(s): N18.4 - Chronic kidney disease, stage 4 (severe) Status: Chronic Assessment and Plan: baseline creatinine (from [facility]) runs ~ 2.1 - 2.6mg/dl was up to 2.9mg/dl by recent testing (05/26/22) follows with Dr. Jonnie Cheema for CKD management presumably due to HTN, DM, vascular disease, and age-related change (3) Weakness: Code(s): R53.1 - Weakness Status: Acute Assessment and Plan: related to PHILIPP versus anemia versus something else(?) PT/OT as tolerated continue supportive therapy (4) Anemia: Code(s): D64.9 - Anemia, unspecified Status: Chronic Assessment and Plan: chronic issues follows with Dr. Cardozo on IV as well as oral iron supplementation follow trend of H/H (5) Hypertension: Code(s): I10 - Essential (primary) hypertension Status: Chronic Assessment and Plan: reasonable control at this time follow trend of hemodynamics (6) Diabetes: Code(s): E11.9 - Type 2 diabetes mellitus without complications Status: Chronic Assessment and Plan: follow accuchecks glycemic control Will continue to follow. Subjective Date/time seen: 05/30/22 12:39 Renal function appears to be better although concerning that he is not have much urine output; seen by Urology yesterday for further assessment of this; seems a bit more sleepy/lethargic at the time of my visit but in no apparent distress. Exam Narrative: General: elderly male in NAD Heart: normal S1 and S2; no rub Lungs: clear to auscultation Abdomen: soft, nontender, nondistended, positive bowel sounds Extremities: no cyanosis or clubbing; no edema Skin: warm and dry Objective Data Vital Signs Vital Signs: Vital Signs Temp Pulse Resp BP Pulse Ox O2 Del Method 05/30/22 11:47 96.2 F L 60 36 H 93/68 L 99 05/30/22 08:00 Room Air 05/30/22 09:37 Room Air 05/30/22 09:47 Room Air 05/30/22 09:02 57 L 05/30/22 03:57 97.8 F 54 L 22 H 117/60 97 05/29/22 21:20 96.9 F L 58 L 18 116/51 L 100 05/29/22 20:17 96 05/29/22 19:45 97 Room Air Intake/Output Intake/Output: Intake & Output 05/27/22 05/28/22 05/29/22 05/30/22 23:59 23:59 23:59 23:59 Intake Total 55 3660 3540 Output Total 605 200 Balance 55 3055 3340 Meds/Results Medications: Active Medications Generic Name Dose Route Start Last Admin Trade Name Freq PRN Reason Stop Dose Admin Acetaminophen 650 mg 05/28/22 16:55 Acetaminophen 325 Mg Tablet PO Q4H PRN Mild Pain (1-3) or Fever Aspirin 81 mg 05/28/22 21:00 05/29/22 20:18 Aspirin 81 Mg Enteric Tablet PO 81 mg HS JAJA Administration Carvedilol 12.5 mg 05/28/22 23:15 05/30/22 09:02 Carvedilol 12.5 Mg Tablet PO 12.5 mg Q12HR JAJA Administration Dextrose 12.5 gm 05/28/22 23:15 05/29/22 08:43 Dextrose 50% 25 Gm/50 Ml Syringe IV PUSH 12.5 gm PRN PRN Administration Hypoglycemia Protocol Ergocalciferol 50,000 units 05/30/22 09:00 05/30/22 09:03 Ergocalciferol 50,000 Units Capsule PO 50,000 units Jaimes JAJA Administration Glucagon 1 mg 05/28/22 23:15 Glucagon For Inj 1 Mg Vial IM PRN PRN Hypoglycemia Protocol Glucose 15 gm 05/28/22 23:15 Glucose Oral Gel 15 Gm Of Glucse In 37.5 Gm Tube PO PRN PRN Hypoglycemia Protocol Sodium Chloride 1,000 mls @ 75 mls/hr 05/28/22
--- NOTE | 2022-05-30 12:39 | P.PNNP_ITS ---
Progress Note: A&P Assessment and Plan (1) PHILIPP (acute kidney injury): Code(s): N17.9 - Acute kidney failure, unspecified Status: Acute Assessment and Plan: * creatinine a bit better today * evaluation to date: * renal ultrasound okay * urine electrolyts with prerenal azotemia * CPK okay * UA with possible suggestion of UTI * mild proteinuria * continue trial of IVFs * follow trend of repeat labs and UOP (2) Chronic kidney disease, stage IV (severe): Code(s): N18.4 - Chronic kidney disease, stage 4 (severe) Status: Chronic Assessment and Plan: * baseline creatinine (from [facility]) runs ~ 2.1 - 2.6mg/dl * was up to 2.9mg/dl by recent testing (05/26/22) * follows with Dr. Jonnie Cheema for CKD management * presumably due to HTN, DM, vascular disease, and age-related change (3) Weakness: Code(s): R53.1 - Weakness Status: Acute Assessment and Plan: * related to PHILIPP versus anemia versus something else(?) * PT/OT as tolerated * continue supportive therapy (4) Anemia: Code(s): D64.9 - Anemia, unspecified Status: Chronic Assessment and Plan: * chronic issues * follows with Dr. Cardozo * on IV as well as oral iron supplementation * follow trend of H/H (5) Hypertension: Code(s): I10 - Essential (primary) hypertension Status: Chronic Assessment and Plan: * reasonable control at this time * follow trend of hemodynamics (6) Diabetes: Code(s): E11.9 - Type 2 diabetes mellitus without complications Status: Chronic Assessment and Plan: * follow accuchecks * glycemic control Will continue to follow. Subjective Date/time seen: 05/30/22 12:39 Renal function appears to be better although concerning that he is not have much urine output; seen by Urology yesterday for further assessment of this; seems a bit more sleepy/lethargic at the time of my visit but in no apparent distress. Exam Narrative: General: elderly male in NAD Heart: normal S1 and S2; no rub Lungs: clear to auscultation Abdomen: soft, nontender, nondistended, positive bowel sounds Extremities: no cyanosis or clubbing; no edema Skin: warm and dry Objective Data Vital Signs Vital Signs: Vital Signs Temp Pulse Resp BP Pulse Ox O2 Del Method 05/30/22 11:47 96.2 F L 60 36 H 93/68 L 99 05/30/22 08:00 Room Air 05/30/22 09:37 Room Air 05/30/22 09:47 Room Air 05/30/22 09:02 57 L 05/30/22 03:57 97.8 F 54 L 22 H 117/60 97 05/29/22 21:20 96.9 F L 58 L 18 116/51 L 100 05/29/22 20:17 96 05/29/22 19:45 97 Room Air Intake/Output Intake/Output: Intake & Output 05/27/22 05/28/22 05/29/22 05/30/22 23:59 23:59 23:59 23:59 Intake Total 55 3660 3540 Output Total 605 200 Balance 55 3055 3340 Meds/Results Medications: Active Medications Generic Name Dose Route Start Last Admin Trade Name Freq PRN Reason Stop Dose Admin Acetaminophen 650 mg 05/28/22 16:55 Acetaminophen 325 Mg Tablet PO Q4H PRN Mild Pain (1-3) or Fever
[2022-05-30 12:56] LABS: Alveolar/Arterial O2 Gradient 43.4 mmHg; Base Excess ABG -4.5 mEq/l (+/-2.0); Fractional Inspired Oxygen 21 %; HCO3 ABG 18.3 mEq/l (22.0-26.0); Oxygen Content ABG 15.3 %vol (16.0-22.0); Oxygen Saturation ABG 95.6 % (95.0-100.0); Oxyhemoglobin 92.9 % THb (90.0-100.0); PCO2 ABG 27.4 mmHg (35.0-45.0); PO2 ABG 73.5 mmHg (80.0-100.0); Total Hemoglobin 11.7 g/dL (12.0-18.0); pH ABG 7.443 (7.350-7.450)
[2022-05-30 12:57] LABS: Site Drawn LEFT BRACHIAL
[2022-05-30 12:58] LABS: Device ROOM AIR
--- NOTE | 2022-05-30 14:04 | PCSTNOTE ---
Patient seen for bedside swallowing evaluation. Upright in chair at bedside. Trials of thin liquids by spoon and straw and trials of pureed food by spoon given. Patient complains of no appetite, but was willing to try applesauce. Lengthy oral transit time for liquid and pureed, delayed triggering of swallow, and reduced laryngeal elevation. Recommendation: pureed diet (level 4) and mildly thickened liquids (level 2). Swallowing precaution recommendations posted in chart. Nursing and physician notified. Thank you for the referral of this patient.
[2022-05-30 17:51] LABS: Basophils Percent Auto 0.1 % (0.2-1.2); Eosinophils Absolute Auto 0.1 K/mm3 (0-0.3); Eosinophils Percent Auto 0.4 % (0-4.4); Hematocrit 35.1 % (42.0-52.0); Hemoglobin 11.5 g/dL (14.0-18.0); Immature Granulocyte Absolute 0.12 K/mm3 (0.00-0.031); Immature Granulocyte Percent A 0.8 % (0-0.5); Immature Platelet Fraction Pct 17.3 % (0.9-11.2); Lymphocytes Absolute Auto 0.64 K/mm3 (0.9-3.2); Lymphocytes Percent Auto 4.2 % (18.3-44.2); Mean Corpuscular HGB Conc 32.8 g/dl (32-36); Mean Corpuscular Hemoglobin 31.4 pg (26-34); Mean Corpuscular Volume 95.9 fl (80-100); Mean Platelet Volume 13.4 fl (7.4-10.4); Monocytes Absolute Auto 1.7 K/mm3 (0.1-0.6); Neutrophils Absolute Auto 12.6 K/mm3 (1.3-6.7); Neutrophils Percent Auto 83.5 % (45.5-73.1); Platelet Count Result 132 k/mm3 (150-375); Red Blood Count 3.66 M/mm3 (4.6-6.20); Red Cell Distribution Width 14.3 % (11.5-14.5); White Blood Count 15.1 K/mm3 (4.5-10.0)
[2022-05-30 18:01] LABS: Lactic Acid Reflex 1.9 mmol/L (0.7-2.0)
[2022-05-30 18:03] LABS: Alanine Aminotransferase 130 U/L (6-50); Albumin Level 2.8 g/dL (3.5-5.1); Alkaline Phosphatase 333 U/L (38-126); Anion Gap 7 mmol/L (8-16); Aspartate Amino Transferase 421 U/L (17-59); Blood Urea Nitrogen 51 mg/dL (9-20); CRP 6.3 mg/dL (<1.0); Calcium 7.7 mg/dL (8.4-10.2); Carbon Dioxide 19 mmol/L (22-30); Chloride 104 mmol/L (98-107); Estimated CRCL calculation 14 ml/min; Estimated Glomerular Filt Rate 20; Glucose 124 mg/dL (65-110); Platelet Estimate Adequate (Adequate); Poikilocytosis 1+ (NORMAL); Potassium 5.3 mmol/L (3.4-5.0); Sodium 130 mmol/L (137-145)
[2022-05-30 18:04] LABS: Burr Cells 1+ (NORMAL); Ovalocytes 1+ (NORMAL); Schistocytes None Seen (NORMAL)
[2022-05-30 18:17] LABS: Procalcitonin 0.8 ng/mL
--- NOTE | 2022-05-30 18:42 | ECG_ITS ---
Measurements Intervals [place] Rate: 50 P: 86 IN: 195 QRS: 101 QRSD: 125 T: 31 QT: 482 QTc: 441 Interpretive Statements SINUS BRADYCARDIA RIGHT AXIS DEVIATION INCOMPLETE LEFT BUNDLE BRANCH BLOCK BORDERLINE R WAVE PROGRESSION, ANTERIOR LEADS INFERIOR INFARCT, AGE INDETERMINATE BORDERLINE ST-T WAVE ABNORMALITY- ANTEROLAT/HIGH LAT LEADS ABNORMAL ECG COMPARED TO ECG 05/28/2022 14:36:55 SINUS BRADYCARDIA NOW PRESENT Electronically Signed On 05-30-2022 19:40:36 RECRUITMENT AND OUTREACH ASSISTANT by Efrain Mann D.O.
--- NOTE | 2022-05-30 19:20 | ECG_ITS ---
Measurements Intervals [place] Rate: 64 P: 51 NC: 183 QRS: 86 QRSD: 128 T: -24 QT: 448 QTc: 465 Interpretive Statements SINUS RHYTHM INCOMPLETE LEFT BUNDLE BRANCH BLOCK BORDERLINE R WAVE PROGRESSION, ANTERIOR LEADS INFERIOR INFARCT, AGE INDETERMINATE BORDERLINE ST-T WAVE ABNORMALITY- ANTEROLAT/HIGH LAT LEADS ABNORMAL ECG COMPARED TO ECG 05/30/2022 18:56:17 SINUS RHYTHM NOW PRESENT Electronically Signed On 05-30-2022 19:41:24 MULT AU MATIC OPERATOR by Efrain Mann D.O.
[2022-05-30] MEDS: ATROPINE SULFATE 1 MG/10 ML SYRINGE IV PUSH (19:53)
[2022-05-30 19:56] LABS: Glucose Point of Care 169 mg/dl (65-105)
[2022-05-30] MEDS: ROSUVASTATIN 10 MG TABLET 20 MG PO (20:44)
[2022-05-30] MEDS: LATANOPROST 0.005% OP SOLN 2.5 ML BTL 1 DROP EACH EYE (20:44)
[2022-05-30] MEDS: ASPIRIN 81 MG ENTERIC TABLET PO (20:45)
[2022-05-30] MEDS: INSULIN GLARGINE (*BKC) 100 UNITS/ML SUB-Q (20:45)
[2022-05-30 21:52] LABS: Troponin I 0.386 ng/mL (0.000-0.034)
--- NOTE | 2022-05-30 22:20 | PC.NURSE ---
at shift change a rapid was called on pt. not knowing anything about the patient yet, i did a quick nuro assessment. patient rt eye is fluid fill and he was unable to open but just a bit, held rt arm up and asked him to hold it up, it dropped right away, lt arm was fine, rt leg was weaker, barely able to hold up, lt leg was fine. patients speech was delayed and just slightly garbled but able to understand. when i went in not even an hour later, patient was moving rt arm and leg just fine. medicine was crushed and in apple sauce and patient had a difficult time swallowing at a 90 degree angle. patient seems to have difficulty clearing secretions. dr serrano is aware of recent findings and he will order a head ct.
[2022-05-31] VITALS (13 sets, daily range): BP systolic 81–99; BP diastolic 39–53; PULSE 38–57; RESP 18–24; TEMP 36.4–37.1; O2SAT 95–98; BMI 20.6
[2022-05-31 04:36] LABS: Basophils Percent Auto 0.2 % (0.2-1.2); Eosinophils Absolute Auto 0.2 K/mm3 (0-0.3); Eosinophils Percent Auto 1.1 % (0-4.4); Hematocrit 31.2 % (42.0-52.0); Hemoglobin 9.9 g/dL (14.0-18.0); Immature Granulocyte Absolute 0.12 K/mm3 (0.00-0.031); Immature Granulocyte Percent A 0.8 % (0-0.5); Immature Platelet Fraction Pct 18.5 % (0.9-11.2); Lymphocytes Absolute Auto 0.95 K/mm3 (0.9-3.2); Lymphocytes Percent Auto 6.6 % (18.3-44.2); Mean Corpuscular HGB Conc 31.7 g/dl (32-36); Mean Corpuscular Hemoglobin 30.6 pg (26-34); Mean Corpuscular Volume 96.3 fl (80-100); Mean Platelet Volume 13.7 fl (7.4-10.4); Monocytes Absolute Auto 1.7 K/mm3 (0.1-0.6); Monocytes Percent Auto 11.9 % (2.6-8.5); Neutrophils Absolute Auto 11.4 K/mm3 (1.3-6.7); Neutrophils Percent Auto 79.4 % (45.5-73.1); Platelet Count Result 126 k/mm3 (150-375); Red Blood Count 3.24 M/mm3 (4.6-6.20); Red Cell Distribution Width 14.3 % (11.5-14.5); White Blood Count 14.4 K/mm3 (4.5-10.0)
[2022-05-31 05:00] LABS: Alanine Aminotransferase 287 U/L (6-50); Albumin Level 2.4 g/dL (3.5-5.1); Alkaline Phosphatase 287 U/L (38-126); Anion Gap 7 mmol/L (8-16); Bilirubin,Total 1.9 mg/dL (0.2-1.3); Blood Urea Nitrogen 51 mg/dL (9-20); Calcium 7.3 mg/dL (8.4-10.2); Carbon Dioxide 20 mmol/L (22-30); Chloride 104 mmol/L (98-107); Estimated CRCL calculation 12 ml/min; Estimated Glomerular Filt Rate 17; Glucose 100 mg/dL (65-110); Potassium 4.7 mmol/L (3.4-5.0); Sodium 131 mmol/L (137-145)
[2022-05-31 05:03] LABS: Aspartate Amino Transferase 1209 U/L (17-59)
[2022-05-31 08:08] LABS: Glucose Point of Care 89 mg/dl (65-105)
[2022-05-31] MEDS: TIMOLOL MALEATE 0.5% OP SOLN 5 ML BOTTLE 1 DROP LEFT EYE ×2 (08:48→16:17)
[2022-05-31] MEDS: PANTOPRAZOLE SODIUM IV 40 MG VIAL IV PUSH (08:49)
--- NOTE | 2022-05-31 09:09 | PM.IMPN ---
Progress Note: A&P Assessment and Plan (1) Lethargy: Code(s): R53.83 - Other fatigue Status: Acute Assessment and Plan: 05/30/22 Worsening clinical picture, unknown etiology, leukocytosis noted, check blood cultures, chest x-ray, urinalysis, start broad-spectrum antibiotics, follow-up labs, check head CT 05/31/22 Leuk down to 14 from 15 yesterday, bld cx pending, CXR showed worsening opacities, concerning for ILD with possible PNA, UA pos nitrates, could be infected, cx pending, head CT showed multiple old infarcts, no acute issues, ammonia is elevated at 37, troponin continues to elevate at 0.486--ECG non acute, PCT 0.8, CRP 6.3, lactate 1.9 Elevated LFTs noted, hepatitis panel negative, RUQ US showed perihepatic ascites, CT ordered STAT and showed pleural effusions and UIP/ILD, diffuse liver disease concerning for malignancy, cholelithiasis with GB distention, ascites, B/L inguinal hernias containing portion of bladder. 1. Will switch abx to vanc + cefepime + flagyl as kidneys cannot tolerate a carbapenem at this time, to cover UIP and empiric coverage for ascending cholangitis/SBP, other intraabdominal etiology, pulmonology consult due to UIP/ILD seen on CT chest with worsening SOB/tachypnea, appreciate pulm consult, cont abx at this time 2. Large volume ascites noted, concern for malignancy and SBP, cont abx as above, diagnostic paracentesis ordered and pending, ammonia elevated, will initiate lactulose/rifaxamin when able, appreciate GI consult 3. Concern for malignancy is high, will check GGT, CEA, CA-125, appreciate oncology consultation and recs 4. Cholelithiasis with GB distention + elevated LFTs, cont abx, appreciate gen surgery consult 5. Inguinal hernias with bladder and PHILIPP, concern for intermittent urinary retention, appreciate general surgery recs, no intervention at this time 6. Elevated troponin with abnormal ECG, monitor telemetry, trend troponins to peak, cardio consult pending, suspect hypoperfusion from PHILIPP and malignancy/sepsis, appreciate cardio recs (2) Acute on chronic renal failure: Code(s): N17.9 - Acute kidney failure, unspecified; N18.9 - Chronic kidney disease, unspecified Status: Acute Assessment and Plan: Appreciate nephrology consultation, due to anasarca picture, d/c IVF F/u nephrology recs, worsening kidney function noted today (3) HTN (hypertension) with goal to be determined: Code(s): I10 - Essential (primary) hypertension Status: Acute Assessment and Plan: Hold home meds, more hypotensive at this time, septic? Monitor (4) Anemia: Code(s): D64.9 - Anemia, unspecified Status: Chronic Assessment and Plan: Concern for underlying malignancy, appreciate onc recs, CEA and CA-125 pending (5) Hyperlipidemia: Code(s): E78.5 - Hyperlipidemia, unspecified Status: Acute Assessment and Plan: Hold statin d/t elevated LFTs (6) CAD (coronary artery disease): Code(s): I25.10 - Atherosclerotic heart disease of [place] coronary artery without angina pectoris Status: Acute Assessment and Plan: History of 6 coronary stents, hold statin (7) Diabetes: Code(s): E11.9 - Type 2 diabetes mellitus without complications Status: Chronic Assessment and Plan: Continue with Lantus, sliding scale insulin with Accu-Cheks AC and HS and hypoglycemic protocol. Last A1c was noted to be 9.6 on 03/09/2022 (8) Glaucoma: Code(s): H40.9 - Unspecified glaucoma Status: Acute Assessment and Plan: Continue with home eye drops Plan History of CVA, cont aspirin. DVT prophylaxis with lovenox GI prophylaxis with PPI Code status full code Subjective Date/time seen: 05/31/22 09:09 Interval history: Extremely lethargic, alert oriented to self only. No overnight events noted. Review of Systems Review of Systems: ROS unobtainable: Yes unobtainable due to mental status Exam
[2022-05-31 10:38] LABS: Ammonia 37 umol/L (9-30)
--- NOTE | 2022-05-31 10:56 | P.PNNP_ITS ---
Progress Note: A&P Assessment and Plan (1) PHILIPP (acute kidney injury): Code(s): N17.9 - Acute kidney failure, unspecified Status: Acute Assessment and Plan: * creatinine up again today * evaluation to date: * renal ultrasound okay * urine electrolytes c/w with prerenal azotemia * CPK okay * UA with possible suggestion of UTI * mild proteinuria * agree with IVFs for now -- may need to adjust/increase if poor oral intake * follow trend of repeat labs and UOP (2) Chronic kidney disease, stage IV (severe): Code(s): N18.4 - Chronic kidney disease, stage 4 (severe) Status: Chronic Assessment and Plan: * baseline creatinine (from [facility]) runs ~ 2.1 - 2.6mg/dl * was up to 2.9mg/dl by recent testing (05/26/22) * follows with Dr. Jonnie Cheema for CKD management * presumably due to HTN, DM, vascular disease, and age-related change (3) Weakness: Code(s): R53.1 - Weakness Status: Acute Assessment and Plan: * related to PHILIPP versus anemia versus new infection versus something else(?) * recent findings of rising LFTs and new liver disease (with ascites) on imaging concerning * noted plan for therapeutic and diagnostic paracentesis * elevated ammonia level playing a role? * follow culture data * on empiric antibiotics (4) Anemia: Code(s): D64.9 - Anemia, unspecified Status: Chronic Assessment and Plan: * chronic issue * follows with Dr. Cardozo * on IV as well as oral iron supplementation * follow trend of H/H (5) Hypertension: Code(s): I10 - Essential (primary) hypertension Status: Chronic Assessment and Plan: * BP running on the soft side * BP medications with parameters * follow trend of hemodynamics (6) Diabetes: Code(s): E11.9 - Type 2 diabetes mellitus without complications Status: Chronic Assessment and Plan: * follow accuchecks * glycemic control Long and extension discussion (> 20 minutes) with patient's family at bedside and attempted to answer their questions to the best of my ability; suspect his fluctuations in his kidney function maybe secondary to some other issue/medical problems that has yet to be revealed. Will continue to follow. Subjective Date/time seen: 05/31/22 10:56 Worsening mental status/lethargy noted over the last 24 hours -- moved to IMU for closer monitoring; repeat imaging (head/chest/abdomen/pelvis CT) results noted as well; renal function a bit worse by repeat testing as well as worsening trend of LFTs as well; at the time of my visit, mentation seems a bit better; no apparent distress noted at this time; family at bedside. Exam Narrative: General: elderly male in NAD Heart: normal S1 and S2; no rub Lungs: clear to auscultation Abdomen: soft, nontender, nondistended, positive bowel sounds Extremities: no cyanosis or clubbing; no edema Skin: warm and intact Objective Data Vital Signs Vital Signs: Vital Signs Temp Pulse Resp BP Pulse Ox O2 Del Method 05/31/22 08:00 Room Air 05/31/22 08:00 97.8 F 55 L 20 98/41 L 95 05/31/22 08:00 55 L 05/31/22 04:00 53 L 22 H 98 Room Air 05/31/22 04:00 53 L 05/31/22 03:42 97.6 F 56 L 22 H 95/43 L 98 05/31/22 02:00 57 L 05/31/22 01:14 38 L 05/31/22 00:00
--- NOTE | 2022-05-31 10:56 | PM.PNNEP ---
Progress Note: A&P Assessment and Plan (1) PHILIPP (acute kidney injury): Code(s): N17.9 - Acute kidney failure, unspecified Status: Acute Assessment and Plan: creatinine up again today evaluation to date: renal ultrasound okay urine electrolytes c/w with prerenal azotemia CPK okay UA with possible suggestion of UTI mild proteinuria agree with IVFs for now -- may need to adjust/increase if poor oral intake follow trend of repeat labs and UOP (2) Chronic kidney disease, stage IV (severe): Code(s): N18.4 - Chronic kidney disease, stage 4 (severe) Status: Chronic Assessment and Plan: baseline creatinine (from [facility]) runs ~ 2.1 - 2.6mg/dl was up to 2.9mg/dl by recent testing (05/26/22) follows with Dr. Jonnie Cheema for CKD management presumably due to HTN, DM, vascular disease, and age-related change (3) Weakness: Code(s): R53.1 - Weakness Status: Acute Assessment and Plan: related to PHILIPP versus anemia versus new infection versus something else(?) recent findings of rising LFTs and new liver disease (with ascites) on imaging concerning noted plan for therapeutic and diagnostic paracentesis elevated ammonia level playing a role? follow culture data on empiric antibiotics (4) Anemia: Code(s): D64.9 - Anemia, unspecified Status: Chronic Assessment and Plan: chronic issue follows with Dr. Cardozo on IV as well as oral iron supplementation follow trend of H/H (5) Hypertension: Code(s): I10 - Essential (primary) hypertension Status: Chronic Assessment and Plan: BP running on the soft side BP medications with parameters follow trend of hemodynamics (6) Diabetes: Code(s): E11.9 - Type 2 diabetes mellitus without complications Status: Chronic Assessment and Plan: follow accuchecks glycemic control Long and extension discussion (> 20 minutes) with patient's family at bedside and attempted to answer their questions to the best of my ability; suspect his fluctuations in his kidney function maybe secondary to some other issue/medical problems that has yet to be revealed. Will continue to follow. Subjective Date/time seen: 05/31/22 10:56 Worsening mental status/lethargy noted over the last 24 hours -- moved to IMU for closer monitoring; repeat imaging (head/chest/abdomen/pelvis CT) results noted as well; renal function a bit worse by repeat testing as well as worsening trend of LFTs as well; at the time of my visit, mentation seems a bit better; no apparent distress noted at this time; family at bedside. Exam Narrative: General: elderly male in NAD Heart: normal S1 and S2; no rub Lungs: clear to auscultation Abdomen: soft, nontender, nondistended, positive bowel sounds Extremities: no cyanosis or clubbing; no edema Skin: warm and intact Objective Data Vital Signs Vital Signs: Vital Signs Temp Pulse Resp BP Pulse Ox O2 Del Method 05/31/22 08:00 Room Air 05/31/22 08:00 97.8 F 55 L 20 98/41 L 95 05/31/22 08:00 55 L 05/31/22 04:00 53 L 22 H 98 Room Air 05/31/22 04:00 53 L 05/31/22 03:42 97.6 F 56 L 22 H 95/43 L 98 05/31/22 02:00 57 L 05/31/22 01:14 38 L 05/31/22 00:00 55 L 22 H 97 Room Air 05/31/22 00:00 55 L 05/30/22 23:27 97.4 F L 57 L 22 H 88/43 L 97 05/30/22 21:09 61 05/30/22 20:00 61 20 97 Room Air 05/30/22 20:00 61 05/30/22 16:30 92/41 L 05/30/22 19:56 97.8 F 64 20 87/36 L 97 05/30/22 19:10 42 L 20 93/36 L 97 Room Air 05/30/22 16:00 Room Air 05/30/22 16:00 96.5 F L 52 L 14 84/31 L 98 05/30/22 14:38 96.7 F L 66 16 110/32 L 100 Intake/Output Intake/Output: Intake & Output 05/28/22 05/29/22 05/30/22 05/31/22 23:59 23:59 23:59 23:59 Intake Total 55 3660 5290 1000 Output Total 605 200 232
[2022-05-31 10:57] LABS: Troponin I 0.486 ng/mL (0.000-0.034)
[2022-05-31 11:14] LABS: Lipase 165 U/L (23-300)
--- NOTE | 2022-05-31 11:25 | PM.CNPUL ---
Assessment and Plan Assessment and plan (1) Interstitial lung disease: Code(s): J84.9 - Interstitial pulmonary disease, unspecified Status: Acute Assessment and Plan: Patient with progressive weakness and muscle fatigue over the last year such that a month ago he could only walk 2 blocks and more recently he has been very weak. Per the family they deny shortness of breath and states that he complained of muscle fatigue. He may have exertional hypoxemia. Chest x-ray on 08/02/2020 with mild reticular infiltrates in the bases and a CT scan on 02/13/2021 of the abdomen demonstrated chronic peripheral based septal thickening and reticular nodular infiltrates consistent with interstitial lung disease. Patient was admitted to this hospital with progressive weakness with ABG 7. on room air. has remained on room air throughout the hospitalization. CT scan of the chest on 05/31/2022 demonstrated peripheral septal thickening with mild peripheral honeycombing in the upper lobes, dependent interstitial alveolar and confluent infiltrates in the lower lobes. I suspect the patient has interstitial lung disease and may have IPF verses NSIP related to an autoimmune or connective tissue disorder. I will check a blood gas to assess for hypoxemic and hypercarbic respiratory failure. I will repeat a COVID, influenza and RSV RT PCR study. I will order a MATY screen that includes 11 different auto antibodies, an ANCA screen, a rheumatoid factor, anti CCP antibody, hypersensitivity pneumonitis panel, a CPK, and an aldolase level. The patient also may have a pneumonia as he has a history of aspiration and I agree with vancomycin (started 05/30) , cefepime and metronidazole (both started 05/31/22). At this point I do not see a need for bronchodilators, inhaled corticosteroids or systemic steroids from a pulmonary perspective. The patient has multisystem organ failure with acute kidney injury, acute liver injury with elevated LFTs and ammonia level, ascites, abnormal imaging of the liver consistent with a hepatitis or malignancy, and elevated CEA at 14.6. Discussed with Dr. Rosado, will follow with you History of Present Illness History of Present Illness Consult date: 05/31/22 Chief complaint: Weakness/Dehydration/CKD Narrative: 05/31/2022: This is a new pulmonary consult for interstitial lung disease. 82-year-old with a history of chronic kidney disease, iron deficiency anemia and basilar interstitial infiltrates on his 1st chest x-ray in our system from 08/02/2020. Patient came to the emergency department on 05/28/2022 with several weeks of worsening weakness. blood pressure is 147/61, room air saturations were 100%.His white blood cell count was 14.0, hemoglobin was 12.4, BUN 51 creatinine was 3.5, his LFTs were elevated. His influenza and COVID RT PCR tests were negative. And he had a chest x-ray with stable chronic interstitial infiltrates. Patient was initially treated with IV fluids for his Cr. 05/30/2022 patient had worsening lethargy on 05/30/2022 with worsening leukocytosis, chest x-ray compared to 05/28/2022 with decreased lung volumes bilaterally, his [place] is also drooping and increased interstitial opacities in the lower lung zones. blood cultures, UA and vancomycin and zosyn antibiotics were started. The note states no chest pain or SOB. Room air saturation 97 to 100%. ABG on room air was 7.44//74. creatinine was 2.8 with a repeat of 3.0. Family member stated that he was conversing normally in the evening of 05/30/2022. 05/31/2022 Cefepime and Flagyl were started vancomycin was continued and Zosyn was discontinued. White blood cell count is 14.4, creatinine is 3.40, bicarbonate is 20. I spoke with the daughter and the who he lives with was well as the son-in-law. The patient has never been told he had any lung conditions throughout his life. One year ago he could walk and right a cart fo
[2022-05-31 11:46] LABS: Carcinoembryonic Antigen 14.6 ng/mL (0.0-3.0)
[2022-05-31 12:03] LABS: Prothrombin Time 22.2 Seconds (11.1-14.7)
[2022-05-31] MEDS: CEFEPIME 0.5 GM in DEXTROSE 5% IN WATER 50 ML IVPB (12:41)
[2022-05-31] MEDS: metroNIDAZOLE 500 MG/ISO 100ML 500 MG/100 ML BAG 100 MG IVPB ×3 (12:41→23:16)
[2022-05-31 12:44] LABS: NT Pro B Type Natriuretic Pept 4800 pg/mL (5-100)
[2022-05-31 12:55] LABS: Glucose Point of Care 82 mg/dl (65-105)
--- NOTE | 2022-05-31 13:39 | WPDNEURCNPN ---
Assessment and Plan Assessment and plan (1) Cerebrovascular accident: Code(s): I63.9 - Cerebral infarction, unspecified Status: Acute Plan 1 underlying chronic renal failure superimposed by acute failure 2. Hypertension 3. Anemia 4. Underlying coronary artery disease 5. Diabetes mellitus with neuropathy and 6 history of glaucoma patient is already on aspirin for the stroke prevention as CT scan documented old infarct involving the left basal ganglia left internal capsule old left frontoparietal coronal radiata left temporal occipital region and left cerebellum will continue the physical therapy and obtain the echocardiogram as well Consult date: 05/31/22 HPI: Brando Myrick is a 82 year old male Admitted to the hospital on May 28, 2022 through the emergency room for the complaints of generalized weakness with documented low hemoglobin in addition to the ongoing history of 1. Chronic kidney disease 2. Iron deficiency anemia. As per the information available for the last several days patient had been progressively getting weaker when evaluated by the garden tractor mechanic as outpatient it was noted that he has iron deficiency anemia he was unable to get out of a chair or ambulate though he was not complaining of any specific headache or chest pain, he had been taking multiple medication as an outpatient as outlined in addition to the ongoing history of chronic renal disease, underlying diabetes mellitus, coma and history of TIA in the past, he has history of years smoked 5 with former smoker but no alcohol consumption and initial exam in the ER revealed him to have just have generalized weakness but otherwise no focal deficit Review of Systems Review of Systems: All systems reviewed & are unremarkable except as noted in HPI and below PMFSH Past Medical History Medical History (Updated 05/31/22 @ 13:51 by Harman Pappas MD) CAD (coronary artery disease) Chronic kidney disease Diabetes Glaucoma HTN (hypertension) with goal to be determined Hyperlipidemia Myocardial infarction PFO (patent foramen ovale) TIA (transient ischemic attack) Surgical History Surgical History (Updated 05/28/22 @ 23:24 by Alma Palafox NP) H/O heart artery stent 6 History of colonoscopy History of percutaneous coronary intervention History of tonsillectomy and adenoidectomy S/P lens implant Family History Family History Sibling Kidney disease Sibling Cancer unknown type Sibling Accident mva, Sibling Accident helicopter accident, Father Black lung disease Mother Pulmonary embolism Social History Social History (Updated 05/28/22 @ 23:25 by Alma Palafox NP) Social History: The patient lives with his of 60 some years. They have 2 children a boy and a girl. 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 The patient is a former smoker. The patient used to drink a couple beers a week. 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 Code status full code Smoking packs per day: 2 Smoking cigarettes per day: 40.0 Years smoked: 5 Smoking pack-years: 10.00 Smoking status: Former smoker Tobacco type: cigarettes Alcohol intake: never Drinks per week: 0 Substance use: never Lack of Transportation: No Lack of Food: Never True Current Housing: I Have Housing Concerned About Future Housing: No Difficulty Paying Gas/Electric Bills: No Difficulty Paying for Meds: No Currently Unemployed: No Education: High School Diploma/GED Difficulty w/ Childcare or Family Care: No Gender identity (if verbalized by the patient): Male Spiritual care concerns: No Meds Home Medications and Allergies Home Medications Medication Instructions Recorded Confirmed Type aspirin 81 mg tablet 81 mg PO HS 08/02/20 05/28/22 His
[2022-05-31 13:49] LABS: Influenza A QL RT-PCR Negative (Negative); Influenza B QL RT-PCR Negative (Negative); RSV RNA, RT-PCR Negative (Negative); SARS-CoV-2 RNA PCR Negative
[2022-05-31 14:02] LABS: Bacteria Urine Trace /hpf; RBC Urine >75 /hpf (0-2); WBC Urine >75 /hpf
[2022-05-31 14:06] LABS: Add Urine Microscopic? YES; Appearance Urine Turbid (Clear); Color Urine Brown (Yellow)
--- NOTE | 2022-05-31 15:13 | PM.CNGS ---
Assessment and Plan Assessment and plan (1) Altered mental status, unspecified: Code(s): R41.82 - Altered mental status, unspecified Status: Acute Assessment and Plan: Etiology unclear to me. Appears to have hepato renal failure. CT imaging of the liver is very worrisome for neoplastic replacement either primary or metastatic. Workup in progress. (2) Bilateral inguinal hernia: Code(s): K40.20 - Bilateral inguinal hernia, without obstruction or gangrene, not specified as recurrent Status: Chronic Assessment and Plan: Known to have been present for a long time. Patient has refused treatment in the past. I discussed with family. Assuming he returns to an improved state of health, these could be addressed as an outpatient in the future. Do not feel there playing any role in his present illness. (3) Acute on chronic renal failure: Code(s): N17.9 - Acute kidney failure, unspecified; N18.9 - Chronic kidney disease, unspecified Status: Acute Assessment and Plan: Nephrology following (4) Abnormal findings on diagnostic imaging of liver and biliary tract: Code(s): R93.2 - Abnormal findings on diagnostic imaging of liver and biliary tract Status: Acute Assessment and Plan: Does have gallstones but no evidence of cholecystitis by history or imaging. I would be much more concerned about the liver as noted above. With elevated CEA level we are still pending CA 125 level. Primary liver malignancy or metastatic liver replacement are certainly considerations. Although cirrhosis is not evident on imaging, this is a possibility as well. Recommend GI consultation. Agree with paracentesis but may also need liver biopsy. (5) Anemia: Code(s): D64.9 - Anemia, unspecified Status: Chronic Assessment and Plan: Also has chronic iron deficiency and has been getting infusions intermittently. Patient was very anemic in November of 2020 and refused endoscopy. Possibility of GI malignancy with metastatic disease to the liver is a concern. History of Present Illness Consult details Consult date: 05/31/22 Reason for consult: gallstones Requesting physician: Denisse Rosado DO Narrative: Patient is an 82-year-old man who has had chronic kidney disease for some time. He also has iron deficiency and would develop weakness and anemia every so often. He was seeing Dr. Cardozo for iron infusion which would greatly help his weakness and lethargy. The patient was again weak and lethargic about a week ago. After contacting Dr. Cardozo, lab tests suggested he would again benefit from an iron infusion. This infusion was scheduled. However on 05/28/2022, patient was so weak and tired that family decided it would be better to bring him to the emergency room rather than waiting for the iron infusion. Reviewing the history of his anemia, the patient had a stroke in July of 2020. He was noted to be very anemic in November of 2020 with a hemoglobin of 6.1. This was treated with iron. He saw Dr. Munoz but, despite being advised, refused to have an EGD and colonoscopy. He has not since had either of these studies. Patient is been admitted and seen by Nephrology. He has been seen by multiple other consultants. It seems he does have some acute kidney injury on top of his chronic kidney disease but the etiology is unclear. CT scan of the chest abdomen and pelvis done earlier today showed ascites and a very abnormal appearing liver. Concern for hepatitis or hepatic malignancy exists. The CT could not be done with IV contrast due to his kidney disease. The gallbladder was distended and showed gallstones on the CT scan. Patient also had inguinal hernias containing ascites and on the left side a portion of the urinary bladder. CEA level was done and is elevated at 14.6. Serum ammonia level is elevated at 37. Paracentesis was done earlier today which showed clear yellow fluid. Liver enzymes with tot
[2022-05-31 15:36] LABS: Rheumatoid Factor < 8.6 IU/ML (<12)
[2022-05-31 15:38] LABS: Appearance Peritoneal Fluid Hazy (Clear); Color Peritoneal Fluid Yellow (Colorless); Lymphocytes Peritoneal Fluid 4 %; Monocytes Peritoneal Fluid 17 %; Neutrophils Peritoneal Fluid 68 % (0-25); Nucleated Cells Peritoneal Flu 1031 /uL (0-500); RBC Peritoneal Fluid 0 /uL (0-100000); Source Peritoneal Fluid Peritoneal Fluid
[2022-05-31 15:40] LABS: Macrophages Peritoneal Fluid 11 %
--- NOTE | 2022-05-31 17:00 | WPDGICN ---
Assessment and Plan Assessment and plan (1) Abnormal findings on diagnostic imaging of liver and biliary tract: Code(s): R93.2 - Abnormal findings on diagnostic imaging of liver and biliary tract Status: Acute Assessment and Plan: a noncontrast CT scan shows an abnormal liver. He may have cirrhosis, but the dramatic increase in liver enzymes is suggestive of infiltrated liver disease such as malignancy. (2) Altered mental status, unspecified: Code(s): R41.82 - Altered mental status, unspecified Status: Acute Assessment and Plan: He is encephalopathic. His a blood ammonia level is not quite that high to imply hepatic encephalopathy. Other factors may be a play. I will however start him on rifaximin if he can take it orally (3) Bilateral inguinal hernia: Code(s): K40.20 - Bilateral inguinal hernia, without obstruction or gangrene, not specified as recurrent Status: Chronic Assessment and Plan: he has had these for quite a while and apparently he has refused surgery in the past. (4) Ascites: Code(s): R18.8 - Other ascites Status: Acute Assessment and Plan: This appears to be a new finding. Greater than 2 L was withdrawn today and has been sent for studies including I believe cytology. (5) PHILIPP (acute kidney injury): Code(s): N17.9 - Acute kidney failure, unspecified Status: Acute Assessment and Plan: BUN is 51. Was in the 20s just over a month ago Plan I discussed his situation with his . I told her that always he had we do not have the answers at this time. I told her that we are frankly concerned about malignancy, given the sudden rise in his LFTs and also elevated CEA. Colonoscopy had been advised last year and he declined it. GI Consult Note Consult date/time: 05/31/22 17:00 HPI: Brando Myrick is a 82 year old male who has chronic kidney disease, chronic anemia for which she gets iron infusions from time to time and recently has become extremely weak and tired. He actually is very somnolent today. I understand he had a stroke about a year ago. He had been referred to our service last year because of severe anemia but he refused at that time to have endoscopy or colonoscopy. Now he has found on CT scan to have a very abnormal liver and ascites. He fact just underwent paracentesis with removal of or 2300 cc of fluid. He was found have a significant elevation of his transaminases. In March he had an AST of 31. At admission was 130 and now 1209 today. Bilirubin has been hovering around 2. Ammonia is 37. Most of the history is obtained from his and the medical record. The patient's states that he has never had liver disease. He does not drink alcohol and has not had any for quite some time. He states that he has never had hepatitis. Hepatitis panel in fact has come back negative. He did have a CEA that was elevated at 14. His appetite apparently had been fairly good until just recently. [facility] Past Medical History Medical History CAD (coronary artery disease) Chronic kidney disease Diabetes Glaucoma HTN (hypertension) with goal to be determined Hyperlipidemia Myocardial infarction PFO (patent foramen ovale) TIA (transient ischemic attack) Surgical History Surgical History H/O heart artery stent 6 History of colonoscopy History of percutaneous coronary intervention History of tonsillectomy and adenoidectomy S/P lens implant Family History Family History Sibling Kidney disease Sibling Cancer unknown type Sibling Accident mva, Sibling Accident helicopter accident, Father Black lung disease Mother Pulmonary embolism Social History Social History (Reviewed
[2022-05-31 17:07] LABS: Alveolar/Arterial O2 Gradient 49.2 mmHg; Base Excess ABG -4.9 mEq/l (+/-2.0); Fractional Inspired Oxygen 21 %; HCO3 ABG 18.1 mEq/l (22.0-26.0); Oxygen Content ABG 13.6 %vol (16.0-22.0); Oxygen Saturation ABG 94.6 % (95.0-100.0); Oxyhemoglobin 91.5 % THb (90.0-100.0); PO2 ABG 68.2 mmHg (80.0-100.0); PO2 FiO2 Ratio Arterial Blood 3.25 %; Total Hemoglobin 10.5 g/dL (12.0-18.0); pH ABG 7.444 (7.350-7.450)
[2022-05-31 17:09] LABS: Modified Allen's Test Pass; Site Drawn LEFT RADIAL
[2022-05-31 17:56] LABS: Glucose Point of Care 70 mg/dl (65-105)
[2022-05-31 18:22] LABS: Troponin I 0.704 ng/mL (0.000-0.034)
[2022-05-31 19:32] LABS: Creatine Kinase 1004 U/L (55-170)
[2022-05-31 20:07] LABS: Glucose Point of Care 122 mg/dl (65-105)
[2022-05-31] MEDS: LATANOPROST 0.005% OP SOLN 2.5 ML BTL 1 DROP EACH EYE (20:35)
[2022-06-01] VITALS (10 sets, daily range): BP systolic 80–100; BP diastolic 36–51; PULSE 44–56; RESP 22–26; TEMP 36.2–36.3; O2SAT 93–98
[2022-06-01 04:41] LABS: Basophils Percent Auto 0.2 % (0.2-1.2); Eosinophils Absolute Auto 0.1 K/mm3 (0-0.3); Eosinophils Percent Auto 0.8 % (0-4.4); Hematocrit 30.1 % (42.0-52.0); Hemoglobin 9.7 g/dL (14.0-18.0); Immature Granulocyte Absolute 0.15 K/mm3 (0.00-0.031); Immature Granulocyte Percent A 1.1 % (0-0.5); Immature Platelet Fraction Pct 16.6 % (0.9-11.2); Lymphocytes Absolute Auto 0.57 K/mm3 (0.9-3.2); Lymphocytes Percent Auto 4.1 % (18.3-44.2); Mean Corpuscular HGB Conc 32.2 g/dl (32-36); Mean Corpuscular Hemoglobin 30.9 pg (26-34); Mean Corpuscular Volume 95.9 fl (80-100); Mean Platelet Volume 13.7 fl (7.4-10.4); Monocytes Absolute Auto 1.6 K/mm3 (0.1-0.6); Monocytes Percent Auto 11.2 % (2.6-8.5); Neutrophils Absolute Auto 11.6 K/mm3 (1.3-6.7); Neutrophils Percent Auto 82.6 % (45.5-73.1); Nucleated Red Blood Cells Perc 0.1 % (0.0-0.2); Platelet Count Result 106 k/mm3 (150-375); Red Blood Count 3.14 M/mm3 (4.6-6.20); Red Cell Distribution Width 14.7 % (11.5-14.5); White Blood Count 14.1 K/mm3 (4.5-10.0)
[2022-06-01 04:56] LABS: Alanine Aminotransferase 550 U/L (6-50); Albumin Level 2.2 g/dL (3.5-5.1); Alkaline Phosphatase 331 U/L (38-126); Anion Gap 8 mmol/L (8-16); Bilirubin,Total 2.1 mg/dL (0.2-1.3); Blood Urea Nitrogen 63 mg/dL (9-20); Calcium 7.3 mg/dL (8.4-10.2); Carbon Dioxide 16 mmol/L (22-30); Chloride 106 mmol/L (98-107); Estimated CRCL calculation 9 ml/min; Estimated Glomerular Filt Rate 13; Glucose 64 mg/dL (65-110); Sodium 130 mmol/L (137-145)
[2022-06-01] MEDS: metroNIDAZOLE 500 MG/ISO 100ML 500 MG/100 ML BAG 100 MG IVPB (05:24)
[2022-06-01 05:29] LABS: Aspartate Amino Transferase 2590 U/L (17-59)
[2022-06-01 08:06] LABS: Glucose Point of Care 94 mg/dl (65-105)
--- NOTE | 2022-06-01 08:20 | PM.IMPN ---
Progress Note: A&P Assessment and Plan (1) Hepatic cancer: Code(s): C22.9 - Malignant neoplasm of liver, not specified as primary or secondary Status: Acute Assessment and Plan: 05/30/22 Sudden worsening of clinical picture, unknown etiology, sepsis workup + abx initiated Leukocytosis noted, check blood cultures, chest x-ray, urinalysis, start broad-spectrum antibiotics, follow-up labs, check head CT 05/31/22 Clinically cont to decompensate Leuk improved on abx, down to 14 from 15 yesterday Bld cx pending CXR showed worsening opacities, concerning for ILD with possible PNA, pulm consult rec cont abx UA pos nitrates, could be infected, cx pending, covered by abx Head CT showed multiple old infarcts, no acute issues to explain change in clinical picture Ammonia is elevated at 37, not enough to explain ams Troponin continues to elevate at 0.486--ECG non acute, could be 2/2 PHILIPP vs cardiac etiology? cardio c/s pending PCT 0.8, CRP 6.3, lactate 1.9. Elevated LFTs noted, hepatitis panel negative, RUQ US showed perihepatic ascites, CT showed diffuse liver disease concerning for malignancy, Abx switched to vanc + cef + flagyl. Dx paracentesis ordered for ascites concerning for hepatic malignancy. 06/01/22 Appreciate multiple consultations on this complicated patient. Patient appears much worse clinically today and concern is for hepatic malignancy with rapid decompensation. Unsure of treatment options at this time, awaiting oncology consultation for further recommendations, will order liver biopsy for further diagnosis in light of positive CEA marker, CA-125 pending and f/u diagnostic paracentesis cytology/labs. Update: Rapid response called due to unresponsiveness and bradycardia (as noted above), moved to ICU for intubation and supportive care. (2) Acute on chronic renal failure: Code(s): N17.9 - Acute kidney failure, unspecified; N18.9 - Chronic kidney disease, unspecified Status: Acute Assessment and Plan: Appreciate nephrology consultation, due to anasarca picture, d/c IVF Kidney function continues to deteriorate, may need urgent dialysis? Diuretics? Defer to nephrology for further recs (3) Anemia: Code(s): D64.9 - Anemia, unspecified Status: Chronic Assessment and Plan: Iron def anemia, repletion by hem/onc, hgb dropping from 11-12, down to 9.7 today (4) CAD (coronary artery disease): Code(s): I25.10 - Atherosclerotic heart disease of [place] coronary artery without angina pectoris Status: Acute Assessment and Plan: History of 6 coronary stents Hold statin, coreg and aspirin for now (5) Diabetes: Code(s): E11.9 - Type 2 diabetes mellitus without complications Status: Chronic Assessment and Plan: Continue with Lantus, sliding scale insulin with Accu-Cheks AC and HS and hypoglycemic protocol. 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, cont current antibiotics, no further treatment necessary at this time, can f/u with pulm outpatient 98% on RA (7) Thrombocytopenia: Code(s): D69.6 - Thrombocytopenia, unspecified Status: Acute Assessment and Plan: worsening, down to around 100K today, monitor, likely a symptom of deteriorating status and suspected liver malignancy, hold aspirin and lovenox (8) Cholelithiases: Code(s): K80.20 - Calculus of gallbladder without cholecystitis without obstruction Status: Acute Assessment and Plan: Cholelithiasis without evidence of cholecystitis, no need for further intervention at this time (9) Inguinal hernia bilateral, non-recurrent
--- NOTE | 2022-06-01 09:08 | PM.PNPUL ---
Progress Note: A&P Assessment and Plan (1) Interstitial lung disease: Code(s): J84.9 - Interstitial pulmonary disease, unspecified Status: Acute Assessment and Plan: Patient with progressive weakness and muscle fatigue over the last year such that a month ago he could only walk 2 blocks and more recently he has been very weak. Per the family they deny shortness of breath and states that he complained of muscle fatigue. He may have exertional hypoxemia. Chest x-ray on 08/02/2020 with mild reticular infiltrates in the bases and a CT scan on 02/13/2021 of the abdomen demonstrated chronic peripheral based septal thickening and reticular nodular infiltrates consistent with interstitial lung disease. Patient was admitted to this hospital with progressive weakness with ABG on room air. has remained on room air throughout the hospitalization. CT scan of the chest on 05/31/2022 demonstrated peripheral septal thickening with mild peripheral honeycombing in the upper lobes, dependent interstitial alveolar and confluent infiltrates in the lower lobes. 06/01/2022 I suspect the patient has interstitial lung disease and may have IPF verses NSIP related to an autoimmune or connective tissue disorder. I will check a blood gas to assess for hypoxemic and hypercarbic respiratory failure. I will repeat a COVID, influenza and RSV RT PCR study. I will order a MATY screen that includes 11 different auto antibodies, an ANCA screen, a rheumatoid factor, anti CCP antibody, hypersensitivity pneumonitis panel, a CPK, and an aldolase level. The patient also may have a pneumonia as he has a history of aspiration and I agree with vancomycin (started 05/30) , cefepime and metronidazole (both started 05/31/22). At this point I do not see a need for bronchodilators, inhaled corticosteroids or systemic steroids from a pulmonary perspective. The patient has multisystem organ failure with acute kidney injury, acute liver injury with elevated LFTs and ammonia level, ascites, abnormal imaging of the liver consistent with a hepatitis or malignancy, and elevated CEA at 14.6. 06/01/2022: Blood gas yesterday afternoon on room air . COVID, influenza and RSV RT PCR studies negative from yesterday. Patient has remained on room air overnight and currently is saturations are 96% however he Remains minimally responsive and flutters his eyes to verbal command. He did show me 2 fingers with his right upper extremity but not his left and did not wiggle his toes to verbal commands. He is bradycardic at 55 and has had low blood pressure overnight. His white blood cell count is 14.1, creatinine is 4.5 and he is being transferred to the intensive care unit. He has no evidence of hypoxemic or hypercarbic respiratory failure at this time. His rheumatoid factor is less than 8.6 and additional serologies are pending. Patient is on vancomycin (day 3), cefepime and Flagyl (both day 2) for possible aspiration pneumonia and SBP. Although he has interstitial lung disease he had been clinically stable from a respiratory viewpoint prior to admission and has remained on room air with adequate oxygenation and ventilation. I do not believe this is an acute exacerbation of interstitial lung disease. I do not believe he has primary respiratory issues that are causing his altered mental status and believe this is related to his liver and kidney dysfunction. At this point, I do not see a need for bronchodilators, inhaled corticosteroids or systemic steroids from a pulmonary perspective. GI and renal teams following. Will sign off for now. Call with questions. Please have patient follow up in the Pulmonary Clinic once he is discharged for continued his interstitial lung disease. Subjective Date/time seen: 06/01/22 09:08 Interval history: 05/31/2022:? This is a new pulmonary consult for interstitial lung disease.? 82-year-old with a history of chronic kidney
[2022-06-01] MEDS: DOPamine 400 MG/D5W 250 ML 400 MG/250 ML BAG 10.88 MG IV CONT (09:15)
--- NOTE | 2022-06-01 09:51 | PC.NURSE ---
This RN to bedside r/t heart rate dropping to the 30s. Vitals obtained, able to palpate radial pulse. Rapid Response called by other staff at nurses station. See Rapid notes. Transferred to ICU 1. Family notified by doors prefitter.
--- NOTE | 2022-06-01 11:29 | PC.NURSE ---
PATIENT IS COMFORT CARE. FAMILY AT BEDSIDE WAITING ON HOSPICE TO ARRIVE
[2022-06-01] MEDS: MORPHINE SULFATE INJ (*CRX) 10 MG/ML AMP 5 MG IV PUSH (11:44)
--- NOTE | 2022-06-01 12:10 | PM.DDS ---
Discharge Summary Probable Cause of Probable Cause of : Septic shock Summary Hospital Course: 82-year-old male patient who has a history of chronic kidney disease and iron deficiency anemia.? The patient was brought into the emergency room with complaints of marked weakness for the past several weeks.? The family stated that the patient is supposed to have a iron infusion and it was not performed.? According to the the patient gets very weak when it is time for him to have his iron infusion as she believes this is why he is so weak.? The patient does see Dr. Cardozo.? They were told this morning that his iron levels were low.? Patient is too weak to even get out of his chair.? The patient is also had decreased oral intake.? His white count is 14.0.? H&H is 12.4 and 39.3.? His BUN is 51 and his creatinine 3.5 today.? Last hemoglobin A1c was 9.6 on 03/09/2022.? Liver enzymes are elevated.? The patient is negative for influenza A/B and COVID.? On 05/26/2022 his iron level was 38, ferritin 274, and iron saturation is low at 13%. Patient had multiple specialist consulted for multiple organ dysfunction. Neurology was consulted for AMS. Gastroenterology was consulted for hepatic malignancy and ascites. Oncology was consulted for iron def anemia and late hepatic malignancy. Cardiology was consulted for elevated troponin. Pulmonology was consulted and did not think the ILD was significant enough to pursue inpatient. General surgery was consulted and stated that the inguinal hernias were not new and no intervention necessary. Nephrology was consulted for kidney failure an was unable to determine etiology. Trial IVF given without improvement. Patient was ultimately found to have was suspected to be hepatic malignancy. Diagnostic paracentesis and liver biopsy were not completed. Patient became unresponsive, bradycardic and encephalopathic. He ultimately was made comfort care. He passed peacefully away in the ICU with family around him shortly thereafter.
[2022-06-02 11:08] LABS: ANA Cascade Screen Negative (Negative)
[2022-06-02 18:44] LABS: GGT 48 U/L (3-70)
[2022-06-02 21:16] LABS: Anti Cyclic Citrullinated Pept <16 Units (<20)
[2022-06-03 17:11] LABS: Glucose Peritoneal Fluid 84 mg/dL; LDH Peritoneal Fluid 53 U/L (<63); Total Protein Peritoneal Fluid <3.0 g/dL
[2022-06-03 17:43] LABS: Mycoplasma IgM Antibody Titer 1092 U/mL (<770)
[2022-06-03 18:24] LABS: Anti Glomerular Basement Memb <1.0 AI (<1.0)
[2022-06-03 19:19] LABS: Chloride Rand Ur 20 mmol/L (32-290); Chloride/Creatinine Rand Ur 24 (23-275); Creatinine Random Urine 84 mg/dL (20-320)
[2022-06-04 00:06] LABS: CA-125 632 U/mL (<35)
[2022-06-06 07:49] LABS: Albumin Peritoneal Fluid 0.2 g/dL
[2022-06-06 09:06] LABS: ANCA Screen Negative (Negative)
== END 2022-06-01 12:00 | disposition expired | DRG 436 ==
LOC: ANHED 16:53 → ANH3MEDSUR 19:10 → ANHIMU 05-30 14:15 → ANHICU 06-01 13:24 → ANHIMU 06-02 11:29
PROVIDERS: Emergency Medicine; Internal Medicine Nephrology; Internal Medicine Pulmonary Disease; Nurse Practitioner; Admitting Provider Chiropractor; Emergency Provider Family Medicine; PCP Internal Medicine; Visit Provider Student in an Organized Health Care Education/Training Program
DX: C22.9 Malignant neoplasm of liver, not specified as primary or secondary (principal); G93.40 Encephalopathy, unspecified; N17.9 Acute kidney failure, unspecified; R18.8 Other ascites; N18.4 Chronic kidney disease, stage 4 (severe); D50.9 Iron deficiency anemia, unspecified; I12.9 Hypertensive chronic kidney disease with stage 1 through stage 4 chronic kidney disease, or unspecified chronic kidney disease; I25.10 Atherosclerotic heart disease of native coronary artery without angina pectoris; Z95.5 Presence of coronary angioplasty implant and graft; J84.112 Idiopathic pulmonary fibrosis; D69.6 Thrombocytopenia, unspecified; K80.20 Calculus of gallbladder without cholecystitis without obstruction; K40.20 Bilateral inguinal hernia, without obstruction or gangrene, not specified as recurrent; E78.5 Hyperlipidemia, unspecified; E11.22 Type 2 diabetes mellitus with diabetic chronic kidney disease; Z20.822 Contact with and (suspected) exposure to COVID-19; Z87.891 Personal history of nicotine dependence; Z86.73 Personal history of transient ischemic attack (TIA), and cerebral infarction without residual deficits; Z79.82 Long term (current) use of aspirin; Z79.4 Long term (current) use of insulin; Z79.899 Other long term (current) drug therapy
CPT/HCPCS: 36415; 36600; 49083; 70450; 71045; 71046; 71250; 74176; 76705; 76775; 80048; 80053; 80069; 80074; 81001; 81050; 82042; 82085; 82140; 82378; 82436; 82550; 82570; 82728; 82805; 82945; 82948; 82977; 83520; 83540; 83550; 83605; 83615; 83690; 83874; 83880; 84145; 84156; 84157; 84300; 84484; 84540; 85025; 85055; 85610; 85999; 86036; 86038; 86140; 86200; 86304; 86331; 86430; 86606; 86609; 86738; 87040; 87070; 87075; 87081; 87086; 87205; 87636; 87637; 88104; 88108; 88305; 89051; 92610; 93005; 96365; 96375; 97161; 97165; 99285; A9270; C9113; G0378; J0171; J0461; J0692; J1265; J1756; J1815; J2270; J2543; J3370; J3420; J7030